=== PATIENT | male | born 1965 | race Caucasian/White ===

== ENCOUNTER 2016-12-20 18:57 | Emergency (ER) | payer BC ==
--- NOTE | 2016-12-20 19:15 | ER Document Report ---
ED Medical Screen (RME) - General Chief Complaint: Abdominal Pain Stated Complaint: RIGHT ABDOMINAL AND SIDE PAIN Notes: This 51-year-old male patient comes emergency room with right upper quadrant abdominal pain for the past few weeks. There is nausea without vomiting or diarrhea today. There had been diarrhea up until yesterday. There may be fever. He saw his primary care provider who sent him to the emergency room. He does smoke a pack a day, probably drinks heavily but has not recently. Quick exam in RME suggests hepatomegaly and ascites. An ultrasound was ordered. I have greeted and performed a rapid initial assessment of this patient. A comprehensive ED assessment and evaluation of the patient, analysis of test results and completion of the medical decision making process will be conducted by additional ED providers. TRAVEL OUTSIDE OF THE [place] IN LAST 30 DAYS: No - Related Data Allergies/Adverse Reactions: No Known Allergies Allergy (Verified 12/20/16 19:02) Past Medical History Pulmonary Medical History: Reports: Hx COPD Renal/ Medical History: Denies: Hx Peritoneal Dialysis Psychiatric Medical History: Denies: Hx Depression Past Surgical History: Reports: Hx Orthopedic Surgery - Immunizations Hx Diphtheria, Pertussis, Tetanus Vaccination: Yes Physical Exam - Vital signs Vitals: Temp Pulse Resp BP Pulse Ox 98.5 F 91 20 91/61 L 93 12/20/16 19:01 12/20/16 19:01 12/20/16 19:01 12/20/16 19:01 12/20/16 19:01 Course - Vital Signs Vital signs: Temp Pulse Resp BP Pulse Ox 98.5 F 91 20 91/61 L 93 12/20/16 19:01 12/20/16 19:01 12/20/16 19:01 12/20/16 19:01 12/20/16 19:01
[2016-12-20 19:42] LABS: ABSOLUTE BASOPHILS # (AUTO) 0.1 10^3/uL (0.0-0.2); ABSOLUTE EOSINOPHILS # (AUTO) 0.1 10^3/uL (0.0-0.6); ABSOLUTE LYMPHOCYTES (AUTO) 1.7 10^3/uL (0.5-4.7); ABSOLUTE MONOCYTES (AUTO) 1.2 10^3/uL (0.1-1.4); ABSOLUTE NEUT (AUTO) 10.2 10^3/uL (1.7-8.2); BASOPHILS % (AUTO) 0.4 % (0-2); EOSINOPHILS % (AUTO) 0.6 % (0-6); HEMATOCRIT 40.9 % (37.9-51.0); HEMOGLOBIN 14.1 g/dL (13.5-17.0); HGB HCT DIFFERENCE 1.4; LYMPHOCYTES % (AUTO) 12.8 % (13-45); MEAN CORPUSCULAR HEMOGLOBIN 36.4 pg (27.0-33.4); MEAN CORPUSCULAR HGB CONC 34.5 g/dL (32.0-36.0); MEAN CORPUSCULAR VOLUME 105 fl (80-97); MONOCYTES % (AUTO) 8.9 % (3-13); RED BLOOD COUNT 3.88 10^6/uL (4.35-5.55); RED CELL DISTRIBUTION WIDTH 14.2 % (11.5-14.0); SEGMENTED NEUTROPHILS % (AUTO) 77.3 % (42-78); WHITE BLOOD COUNT 13.2 10^3/uL (4.0-10.5)
[2016-12-20 20:00] LABS: ALANINE AMINOTRANSFERASE 98 U/L (21-72); ALBUMIN 3.9 g/dL (3.5-5.0); ALKALINE PHOSPHATASE 710 U/L (38-126); ANION GAP 15 (5-19); ASPARTATE AMINO TRANSFERASE 428 U/L (17-59); BILIRUBIN,DIRECT 1.5 mg/dL (0.0-0.4); BLOOD UREA NITROGEN 31 mg/dL (7-20); CALCIUM 11.7 mg/dL (8.4-10.2); CARBON DIOXIDE 22 mmol/L (22-30); CHLORIDE 101 mmol/L (98-107); CREATININE RESULT 1.14 mg/dL (0.52-1.25); GLUCOSE 103 mg/dL (75-110); LIPASE 312.8 U/L (23-300); POTASSIUM 5.9 mmol/L (3.6-5.0); SODIUM 137.8 mmol/L (137-145); TOTAL PROTEIN 7.9 g/dL (6.3-8.2)
[2016-12-21] MEDS ORDERED: NORMAL SALINE 1000 ML 1,000 ML IV PRN (00:30)
[2016-12-21] MEDS ORDERED: ONDANSETRON HCL INJ/PF 4 MG/2 ML SDV IV ONE (00:30)
--- NOTE | 2016-12-21 00:36 | ER Document Report ---
ED GI/ - General Chief Complaint: Abdominal Pain Stated Complaint: RIGHT ABDOMINAL AND SIDE PAIN Time seen by provider: 00:33 Mode of Arrival: Ambulatory Information source: Patient TRAVEL OUTSIDE OF THE [place] IN LAST 30 DAYS: No - HPI Patient complains to provider of: Abdominal pain, Vomiting Onset: Other - 2 weeks Timing/Duration: Persistent, Worse Quality of pain: Achy, Fullness, Pressure Severity at maximum: Moderate Severity in ED: Moderate Pain Level: 3 Location: RUQ, RLQ Associated symptoms: Chills, Nausea, Vomiting Exacerbated by: Denies Relieved by: Denies Similar symptoms previously: No Recently seen / treated by doctor: No Notes: 12/21/16 00:34 Patient is a 51-year-old male who presents to emergency room complaining of right-sided abdominal pain that's been going on for the past 2 weeks, initially he had nausea, vomiting and diarrhea as well as chills and a subjective fever, over the past few days his pain has increased but the vomiting and diarrhea has decreased, he denies any history of similar symptoms previously, he denies any abdominal surgeries previously, he is a pack per day smoker, and drinks approximately one of whiskey daily, reports a history of hypertension - Related Data Allergies/Adverse Reactions: No Known Allergies Allergy (Verified 12/20/16 19:02) Past Medical History - General Information source: Patient - Social History Smoking Status: Current Every Day Smoker Frequency of alcohol use: Heavy Drug Abuse: None Family History: Reviewed & Not Pertinent Patient has suicidal ideation: No Patient has homicidal ideation: No Pulmonary Medical History: Reports: Hx COPD Renal/ Medical History: Denies: Hx Peritoneal Dialysis Psychiatric Medical History: Denies: Hx Depression Past Surgical History: Reports: Hx Orthopedic Surgery - Immunizations Hx Diphtheria, Pertussis, Tetanus Vaccination: Yes Review of Systems - Review of Systems Constitutional: See HPI EENT: No symptoms reported Cardiovascular: No symptoms reported Respiratory: No symptoms reported Gastrointestinal: See HPI Genitourinary: No symptoms reported Male Genitourinary: No symptoms reported Musculoskeletal: No symptoms reported Skin: No symptoms reported Hematologic/Lymphatic: No symptoms reported Neurological/Psychological: No symptoms reported -: Yes All other systems reviewed and negative Physical Exam - Vital signs Vitals: Temp Pulse Resp BP Pulse Ox 98.5 F 91 20 91/61 L 93 12/20/16 19:01 12/20/16 19:01 12/20/16 19:01 12/20/16 19:01 12/20/16 19:01 Interpretation: Hypotensive - General General appearance: Alert In distress: None - HEENT Head: Normocephalic, Atraumatic Eyes: Normal Conjunctiva: Normal Extraocular movements intact: Yes Eyelashes: Normal Pupils: PERRL Mucous membranes: Dry - Respiratory Respiratory status: No respiratory distress Chest status: Nontender Breath sounds: Normal Chest palpation: Normal - Cardiovascular Rhythm: Regular Heart sounds: Normal auscultation Murmur: No - Abdominal Distension: Distended Bowel sounds: Hypoactive Tenderness: Tender - Right upper and right lower quadrant Organomegaly: Hepatomegaly - Back Back: Normal, Nontender - Extremities General upper extremity: Normal inspection, Nontender, Normal color, Normal ROM , Normal temperature General lower extremity: Normal inspection, Nontender, Normal color, Normal ROM , Normal temperature, Normal weight bearing. No: Aneta's sign - Neurological Neuro grossly intact: Yes Cognition: Normal Orientation: AAOx4 Jason Coma Scale Eye Opening: Spontaneous Jason Coma Scale Verbal: Oriented [place] Coma Scale Motor: Obeys Commands Jason Coma Scale Total: 15 Speech: Normal Motor strength normal: LUE, RUE, LLE, RLE Sensory: Normal - Psychological Associated symptoms: Normal affect, Normal mood - Skin Skin Temperature: Warm Skin Moisture: Dry Skin Color: Normal Course - Re-evaluation Re-evalutation: 12/21/16 04:26 Lab and imaging findings were discussed with patient and spouse at bedside which are skin consistent with multiple metastatic lesions, patient was provided with pain medication and information for follow-up with oncology, advised to stop drinking and smoking, follow-up with a primary care provider and oncologist in the next 1-2 days for further evaluation, or return if symptoms worsen, patient acknowledges understanding and agreement with this plan - Vital Signs Vital signs: Temp Pulse Resp BP Pulse Ox 98.2 F 91 19 125/80 90 L 12/20/16 19:05 12/20/16 19:05 12/21/16 03:07 12/21/16 03:07 12/21/16 03:07 - Laboratory Result Diagrams: 12/20/16 19:20 12/20/16 19:20 Laboratory results interpreted by me: 12/20/16 12/20/16 12/21/16 19:20 19:20 00:45 WBC 13.2 H RBC 3.88 L MCV 105 H MCH 36.4 H RDW 14.2 H Lymphocytes % 12.8 L Absolute Neutrophils 10.2 H APTT 38.2 H Potassium 5.9 H BUN 31 H Calcium 11.7 H Total Bilirubin 2.0 H Direct Bilirubin 1.5 H AST 428 H ALT 98 H Alkaline Phosphatase 710 H Creatine Kinase Lipase 312.8 H Urine Protein Urine Bilirubin Urine Urobilinogen Urine Ascorbic Acid 12/21/16 12/21/16 00:45 00:50 WBC RBC MCV MCH RDW Lymphocytes % Absolute Neutrophils APTT Potassium BUN Calcium Total Bilirubin Direct Bilirubin AST ALT Alkaline Phosphatase Creatine Kinase 667 H Lipase Urine Protein 30 H Urine Bilirubin SMALL H Urine Urobilinogen 4.0 H Urine Ascorbic Acid 20 H - Diagnostic Test Radiology reviewed: Image reviewed, Reports reviewed - EKG Interpretation by Me EKG shows normal: Sinus rhythm Rate: Normal Rhythm: NSR Discharge - Discharge Clinical Impression: Liver masses, Mass of both adrenal glands, Liver enzyme elevation, ETOH abuse Condition: Stable Disposition: HOME, SELF-CARE Instructions: Growth or Mass, Pending Workup ([facility]), Liver Function Abnormality ([facility]), Chronic Alcoholism ([facility]), Stop Smoking ([facility]) Additional Instructions: Follow-up with a primary care provider and oncologist within the next 1-2 days for further evaluation and treatment. Stop drinking and stop smoking. Return to the emergency room immediately if symptoms worsen or any additional concerns. Prescriptions: Oxycodone HCl 5 mg PO Q4 #30 tablet Forms: Smoking Cessation Education Referrals: THO URIAS MD [ACTIVE STAFF] - Follow up as needed DWAINE TUCKER MD [ACTIVE STAFF] - Follow up as needed
[2016-12-21 01:16] LABS: PROTHROMBIN TIME 13.2 SEC (11.4-15.4)
[2016-12-21 01:18] LABS: PARTIAL THROMBOPLASTIN TIME 38.2 SEC (23.5-35.8)
[2016-12-21 01:35] LABS: APPEARANCE,URINE SLIGHTLY-CLOUDY; BILIRUBIN,URINE SMALL (NEGATIVE); GLUCOSE, URINE NEGATIVE (NEGATIVE); KETONES,URINE NEGATIVE (NEGATIVE); LEUKOCYTE ESTERASE,URINE NEGATIVE (NEGATIVE); NITRITE,URINE NEGATIVE (NEGATIVE); PROTEIN,URINE 30 mg/dL (NEGATIVE); URINE SPECIFIC GRAVITY 1.029
[2016-12-21 05:15] VITALS: BP 128/74
--- NOTE | 2016-12-21 07:28 | EKG REPORT ---
SEVERITY:- ABNORMAL ECG - SINUS RHYTHM BORDERLINE R WAVE PROGRESSION, ANTERIOR LEADS NONSPECIFIC T ABNORMALITIES, LATERAL LEADS : Confirmed by: Prem Yepez MD 21-Dec-2016 07:27:56
== END 2016-12-21 04:50 | disposition home or self-care (01) ==
LOC: ER 18:57
DX: R16.0 Hepatomegaly, not elsewhere classified (principal); D35.00 Benign neoplasm of unspecified adrenal gland; R74.8 Abnormal levels of other serum enzymes; F10.10 Alcohol abuse, uncomplicated; R10.9 Unspecified abdominal pain; R52 Pain, unspecified; R11.2 Nausea with vomiting, unspecified; R19.7 Diarrhea, unspecified; F17.210 Nicotine dependence, cigarettes, uncomplicated; I10 Essential (primary) hypertension
CPT/HCPCS: 93005; 99284; 96361; 96374; 36415; 87045; 89055; 87205; 82553; 82550; 83690; 85025; 85610; 85730; 82272; 80053; 81001; 87493 ×2; 76705; 74177; 93010; J2405; J7030

== ENCOUNTER 2016-12-29 16:15 | Inpatient (IN) | payer BC ==
--- NOTE | 2016-12-29 17:04 | ER Document Report ---
ED Medical Screen (RME) - General Chief Complaint: Abnormal Lab Results Stated Complaint: ABNORMAL LABS Notes: This 51-year-old patient comes emergency room on the advice of his oncologist for elevated potassium on lab work done in the office yesterday. 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 He was found to have low blood pressure at triage. He denies any vomiting. He does get choked on food and fluids sometimes. I have greeted and performed a rapid initial assessment of this patient. A comprehensive ED assessment and evaluation of the patient, analysis of test results and completion of the medical decision making process will be conducted by additional ED providers. TRAVEL OUTSIDE OF THE [place] IN LAST 30 DAYS: No - Related Data Allergies/Adverse Reactions: No Known Allergies Allergy (Verified 12/29/16 16:59) Past Medical History Pulmonary Medical History: Reports: Hx COPD Renal/ Medical History: Denies: Hx Peritoneal Dialysis Psychiatric Medical History: Denies: Hx Depression Past Surgical History: Reports: Hx Orthopedic Surgery - Immunizations Hx Diphtheria, Pertussis, Tetanus Vaccination: Yes Physical Exam - Vital signs Vitals: Temp Pulse Resp BP Pulse Ox 98.5 F 82 18 76/50 L 92 12/29/16 16:53 12/29/16 16:53 12/29/16 16:53 12/29/16 16:53 12/29/16 16:53 Course - Vital Signs Vital signs: Temp Pulse Resp BP Pulse Ox 98.5 F 82 18 76/50 L 92 12/29/16 16:53 12/29/16 16:53 12/29/16 16:53 12/29/16 16:53 12/29/16 16:53
[2016-12-29] MEDS ORDERED: NORMAL SALINE 1000 ML 1,000 ML IV ONE (17:09)
[2016-12-29 17:41] LABS: ABSOLUTE BASOPHILS # (AUTO) 0.1 10^3/uL (0.0-0.2); ABSOLUTE EOSINOPHILS # (AUTO) 0.1 10^3/uL (0.0-0.6); ABSOLUTE LYMPHOCYTES (AUTO) 1.2 10^3/uL (0.5-4.7); ABSOLUTE MONOCYTES (AUTO) 0.7 10^3/uL (0.1-1.4); ABSOLUTE NEUT (AUTO) 7.1 10^3/uL (1.7-8.2); BASOPHILS % (AUTO) 0.7 % (0-2); EOSINOPHILS % (AUTO) 0.9 % (0-6); HEMATOCRIT 37.2 % (37.9-51.0); HGB HCT DIFFERENCE 1.8; LYMPHOCYTES % (AUTO) 12.8 % (13-45); MEAN CORPUSCULAR HEMOGLOBIN 36.4 pg (27.0-33.4); MEAN CORPUSCULAR HGB CONC 34.8 g/dL (32.0-36.0); MEAN CORPUSCULAR VOLUME 105 fl (80-97); MONOCYTES % (AUTO) 8.2 % (3-13); RED BLOOD COUNT 3.55 10^6/uL (4.35-5.55); RED CELL DISTRIBUTION WIDTH 14.1 % (11.5-14.0); SEGMENTED NEUTROPHILS % (AUTO) 77.4 % (42-78); WHITE BLOOD COUNT 9.1 10^3/uL (4.0-10.5)
[2016-12-29 17:54] LABS: ALANINE AMINOTRANSFERASE 113 U/L (21-72); ALBUMIN 3.5 g/dL (3.5-5.0); ALKALINE PHOSPHATASE 523 U/L (38-126); ANION GAP 19 (5-19); ASPARTATE AMINO TRANSFERASE 365 U/L (17-59); BILIRUBIN,DIRECT 1.2 mg/dL (0.0-0.4); BILIRUBIN,TOTAL 1.4 mg/dL (0.2-1.3); BLOOD UREA NITROGEN 115 mg/dL (7-20); CALCIUM 9.7 mg/dL (8.4-10.2); CARBON DIOXIDE 17 mmol/L (22-30); CHLORIDE 99 mmol/L (98-107); GLUCOSE 101 mg/dL (75-110); MAGNESIUM 2.1 mg/dL (1.6-2.3); SODIUM 135.3 mmol/L (137-145); TOTAL PROTEIN 7.7 g/dL (6.3-8.2)
[2016-12-29 17:56] LABS: POTASSIUM 6.9 mmol/L (3.6-5.0)
[2016-12-29] MEDS ORDERED: CALCIUM GLUCONATE 1000 MG/10 ML INJ IV ONE (18:10)
[2016-12-29] MEDS ORDERED: INSULIN REG, HUMAN 100 UNIT/ML 3 ML VIAL (PYX) IV ONE (18:11)
[2016-12-29] MEDS ORDERED: DEXTROSE 50%-WATER 25 GM/50 ML DISP.SYRIN IV ONE (18:11)
[2016-12-29] MEDS ORDERED: IPRATROPIUM/ALBUTEROL 0.5-2.5 MG/3 ML AMPUL NEB ONE (18:11)
[2016-12-29] MEDS ORDERED: SODIUM POLYSTYRENE SULFONATE 15 GM/60 ML PO ONE (18:12)
[2016-12-29] MEDS ORDERED: NORMAL SALINE 500 ML IV PRN (18:23)
--- NOTE | 2016-12-29 19:06 | ER Document Report ---
ED General - General Chief Complaint: Abnormal Lab Results Stated Complaint: ABNORMAL LABS Time seen by provider: 19:02 Mode of Arrival: Ambulatory Information source: Patient Notes: This is a 51-year-old man with a history of CHF (ejection fraction 20%) and hypertension with a recent diagnosis of metastatic cancer to the liver (one week ago via CT scan of the abdomen). The patient also notes that his pressures have been running low. He is continued his current blood pressure regimen despite this because he did not know otherwise. He did have an appointment with Dr. Gardner of oncology yesterday and they did some blood work and was referred here to the ER because of hyperkalemia. Currently, he complains of feeling generalized weakness and lack of energy. Medicines: Potassium supplementation (595 mg a day): His been taking this on his own. 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 Gardner patient is due to have a PET scan on Monday and a biopsy to be set up after that. TRAVEL OUTSIDE OF THE [place] IN LAST 30 DAYS: No - HPI Onset: Just prior to arrival Onset/Duration: Sudden Quality of pain: No pain Severity: None Pain Level: Denies Associated symptoms: Weakness Exacerbated by: Denies Relieved by: Denies Similar symptoms previously: Yes Recently seen / treated by doctor: Yes - Related Data Allergies/Adverse Reactions: No Known Allergies Allergy (Verified 12/29/16 16:59) Home Medications: Current Home Medications Aspirin [Aspirin EC] 81 mg PO DAILY 12/29/16 [History] Carvedilol [Coreg 25 mg Tablet] 1.5 tab PO Q12 12/29/16 [History] Cinnamon Bark [Cinnamon Bark 500 mg Capsule] 1,000 mg PO DAILY 12/29/16 [History ] Furosemide [Lasix] 80 mg PO BID 12/29/16 [History] Guaifenesin [Mucinex] 1,200 mg PO DAILY 12/29/16 [History] Guaifenesin/P-Ephed HCl [Mucinex D Tablet] 1 tab PO DAILY 12/29/16 [History] Lisinopril [Prinivil 40 mg Tablet] 40 mg PO DAILY 12/29/16 [History] [place]-3 Fatty Acids/Fish Oil [Fish Oil 1,000 mg Capsule] 1,000 mg PO DAILY 12/29 [History] Oxycodone HCl [Oxy-Ir 5 mg Tablet] 5 mg PO Q4 12/29/16 [History] Ranitidine HCl [Heartburn Relief 150] 150 mg PO DAILY 12/29/16 [History] Past Medical History - General Information source: Patient - Social History Smoking Status: Current Every Day Smoker Cigarette use (# per day): Yes - pack a day Chew tobacco use (# tins/day): No Frequency of alcohol use: Heavy Drug Abuse: None Lives with: Spouse/Significant other Family History: Reviewed & Not Pertinent Patient has suicidal ideation: No Patient has homicidal ideation: No - Past Medical History Cardiac Medical History: Reports: Hx Congestive Heart Failure - Ejection fraction 20% Pulmonary Medical History: Reports: Hx COPD EENT Medical History: Reports: None Neurological Medical History: Reports: None Endocrine Medical History: Reports: None Renal/ Medical History: Denies: Hx Peritoneal Dialysis Malignancy Medical History: Reports Other - Recent diagnosis of metastatic cancer with an unknown primary GI Medical History: Reports: Other - Metastatic disease to the liver Musculoskeltal Medical History: Reports Hx Arthritis Skin Medical History: Reports None Psychiatric Medical History: Denies: Hx Depression Traumatic Medical History: Reports: None Infectious Medical History: Reports: None Past Surgical History: Reports: Hx Orthopedic Surgery - Immunizations Hx Diphtheria, Pertussis, Tetanus Vaccination: Yes Review of Systems - Review of Systems Constitutional: denies: Chills, Fever EENT: No symptoms reported Cardiovascular: No symptoms reported Respiratory: No symptoms reported Gastrointestinal: See HPI Genitourinary: No symptoms reported Male Genitourinary: No symptoms reported Musculoskeletal: No symptoms reported Skin: No symptoms reported Hematologic/Lymphatic: No symptoms reported Neurological/Psychological: See HPI Physical Exam - Vital signs Vitals: Temp Pulse Resp BP Pulse Ox 98.5 F 82 18 76/50 L 92 12/29/16 16:53 12/29/16 16:53 12/29/16 16:53 12/29/16 16:53 12/29/16 16:53 Notes: Physical exam: GENERAL: 51-year-old man, alert and oriented 3, complaining of generalized weakness, no acute distress. HEAD: Atraumatic, normocephalic. EYES: Pupils equal round and reactive to light, extraocular movements intact, sclera anicteric, conjunctiva are normal. ENT: TMs normal, nares patent, oropharynx clear without exudates. Dry mucous membranes. NECK: Normal range of motion, supple without lymphadenopathy or JVD. LUNGS: Breath sounds clear to auscultation bilaterally and equal. No wheezes rales or rhonchi. HEART: Regular rate and rhythm without murmurs, rubs or gallops. ABDOMEN: Soft, normoactive bowel sounds. No tenderness to palpation. No guarding, no rebound. No masses appreciated. EXTREMITIES: Normal range of motion, no pitting or edema. No clubbing or cyanosis. NEUROLOGICAL: Cranial nerves II through XII grossly intact. Normal speech, normal gait. PSYCH: Normal mood, normal affect. SKIN: Warm, Dry, normal turgor, no rashes or lesions noted. Course - Re-evaluation Re-evalutation: Patient was treated with IV calcium gluconate, IV D50, IV insulin, oral Kayexalate and albuterol and ipratropium nebulizers. Patient is being cautiously hydrated with normal saline at 200 mL an hour. His ejection fraction is 20%. 12/29/16 19:56 Patient's blood pressure at this time is 103/68. He is sitting up drinking Kayexalate. 12/29/16 19:57 12/29/16 19:57 I discussed case with Dr. Hardin who agrees with the above treatment. I have discussed case with Dr. Chi who is willing to admit the patient. I've discussed the case with Dr. Cerdick Serrano is covering for Dr. Gardner who will follow the patient. 12/29/16 22:16 - Vital Signs Vital signs: Temp Pulse Resp BP Pulse Ox 98.5 F 82 30 H 103/66 91 L 12/29/16 16:53 12/29/16 16:53 12/29/16 22:01 12/29/16 22:00 12/29/16 22:01 - Laboratory Result Diagrams: 12/29/16 17:16 12/29/16 17:16 Laboratory results interpreted by me: 12/29/16 12/29/16 17:16 17:16 RBC 3.55 L Hgb 13.0 L Hct 37.2 L MCV 105 H MCH 36.4 H RDW 14.1 H Lymphocytes % 12.8 L Sodium 135.3 L Potassium 6.9 H* Carbon Dioxide 17 L BUN 115 H Creatinine 3.90 H Est GFR ( Amer) 20 L Est GFR (Non-Af Amer) 16 L Total Bilirubin 1.4 H Direct Bilirubin 1.2 H AST 365 H ALT 113 H Alkaline Phosphatase 523 H - Diagnostic Test Radiology reviewed: Image reviewed, Reports reviewed - Chest x-ray shows right hilar fullness consistent with possible mass - EKG Interpretation by Me Rate: Normal Rhythm: NSR - EKG shows normal sinus rhythm with a first-degree AV block. Normal T waves. Critical Care Note - Critical Care Note Total time excluding time spent on procedures (mins): 90 Discharge - Discharge Clinical Impression: hyperkalemia, acute renal failure Condition: Serious Disposition: ADMITTED INPATIENT Admitting Provider: Hospitalist - Dr. Chi Unit Admitted: [facility]
[2016-12-29] MEDS ORDERED: NORMAL SALINE 1000 ML 1,000 ML IV PRN ×2 (19:13→22:55)
--- NOTE | 2016-12-29 20:06 | EKG REPORT ---
SEVERITY:- ABNORMAL ECG - SINUS RHYTHM FIRST DEGREE AV BLOCK BORDERLINE R WAVE PROGRESSION, ANTERIOR LEADS : Confirmed by: Leona Carney MD 29-Dec-2016 20:05:47
[2016-12-29 22:16] LABS: ANION GAP 19 (5-19); BLOOD UREA NITROGEN 114 mg/dL (7-20); CALCIUM 9.6 mg/dL (8.4-10.2); CARBON DIOXIDE 18 mmol/L (22-30); CHLORIDE 100 mmol/L (98-107); CREATININE RESULT 3.83 mg/dL (0.52-1.25); GLUCOSE 71 mg/dL (75-110); SODIUM 137.3 mmol/L (137-145)
[2016-12-29 22:19] LABS: POTASSIUM 6.3 mmol/L (3.6-5.0)
[2016-12-29] MEDS ORDERED: PROMETHAZINE HCL INJ 25 MG/1 ML VIAL IV PRN (23:02)
--- NOTE | 2016-12-29 23:25 | PDOC H&P ---
History of Present Illness Admission Date/PCP: 12/29/16 20:31 pcp None Cards Sandi Gardner Patient complains of: abn labs History of Present Illness: EDILIA PAN is a 51 year old male with known underlying severe congestive heart failure, reportedly under consideration for defibrillator implant, chronic tobacco use, chronic heavy alcohol use, fifth of whiskey every 2-3 days, hypertension, with recently discovered metastatic malignancy, unknown primary, who presents today at the recommendation of his oncologist for evaluation of above complaint. Patient has been discussed with emergency room physician who evaluated the patient. Elevated potassium noted on blood work drawn yesterday. Recent CT scan of abdomen revealed malignancy metastatic to liver, with unknown primary. He describes a general feeling of fatigue and weakness. 22 pound weight loss over the last 3 weeks, unintentional. Poor appetite. No fever or chills. Mild diffuse abdominal discomfort. Occasional nausea and vomiting and diarrhea , but basically none for the past week or so. A bit of a poor historian. Has been taking his usual medications as noted over the past several days. his blood pressure has been a bit low; stated his systolic pressure on today was 77. Initially systolic pressure in the 70's in the emergency room, but has responded to IV fluids. Denies any known underlying renal disease. Prior to my being called, the emergency room physician did discuss with Dr. Hardin, nursing home admissions director armature winder. She agreed with admission along with management of hyperkalemia and IV fluids. Currently resting quietly, still having some abdominal discomfort, but improved.. Laboratory results are listed in [employer] and are reviewed. X-ray summary results are listed below, with full report(s) reviewed. . EKG reviewed. And compared to a tracing the 12th of this month. Social history/personal habits: Single. No children. 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 Pack of cigarettes per day. No illicit drug use. Heavy alcohol use as noted above. Allergies/adverse reactions NKDA. Home medications Home medications initially autopopulated into [employer] may not accurately reflect patient's true medications, dosages, and/or frequencies. industrial hygiene technician has reconciled medications. REVIEW OF SYSTEMS: Constitutional: See history and present illness. Eyes: Wears glasses. ENT: Mild occasional recent dysphagia, primarily when he takes a "big gulp" of milk prior to taking his medications. No trouble with solid food. No aspiration. No hearing problems or complaints. Pulmonary: No current complaints. Cardiovascular: No current complaints, including chest pain. Gastrointestinal: See history and present illness. Skin: No current complaints, including rashes. Hematologic: No unusual easy bruising or bleeding. Neurologic: No current complaints, including numbness or tingling. Musculoskeletal: Joint pain from arthritis. Psychiatric: No current complaints, including anxiety or depression. Endocrine: No current complaints, including polyuria. Genitourinary: No current complaints, including dysuria. PHYSICAL EXAMINATION: 80 kg. Height is not recorded on the chart. Blood pressure 103/66. Pulse 87 and regular. 94% saturation on room air. Respirations are 14 and unlabored. Temperature 98.5. Outwardly well nourished though somewhat chronically ill-appearing male who appears a bit older than his stated age. Pleasant awake alert and cooperative. No obvious distress other than somewhat anxious. No agitation. Skin is warm and dry. No grossly obvious evidence of rash in areas of skin examined. No subcutaneous nodules palpated. ENT: Hearing grossly normal to normal conversation. Tongue midline on protrusion pink and slightly moist. Eyes: No scleral icterus. Pupils equal and reactive to light at 4 mm. slightly pale conjunctivae. Neck is supple and nontender to gentle active range of motion and palpation. Midline trachea. No palpable thyroid nodule mass enlargement or tenderness. Lymphatic: No palpable cervical or clavicular nodes. Neck and lymphatic exams limited by patient body habitus. Psychiatric: Reasonable insight into acute and chronic medical issues. Oriented to time location and why here. Lungs: Auscultation reveals clear and equal breath sounds bilaterally. No use of accessory respiratory muscles. Cardiovascular: Heart regular rate and rhythm, without gallop murmur or rub. No carotid or abdominal aortic bruits. No ankle or pedal edema. Faintly palpable dorsalis pedis pulses. Abdomen: soft, somewhat protruberant and distended with positive bowel sounds. Very mild diffuse abdominal discomfort, a bit more noticeable on the right side. Certainly no evidence of guarding or peritoneal signs. Unable to adequately evaluate abdomen for masses or organomegaly due to distention. Extremities: Feet are warm and dry. No calf tenderness to compression. No grossly obvious visual evidence of calf swelling. Gentle manipulation of lower extremities fails to reveal any obvious evidence of injury or instability to knees hips or ankles. Neurologic: Moves all 4 extremities grossly normally. Moves from a standing to a seated to a supine position without undue difficulty. Patellar reflexes 2+ and symmetric. Absent Babinski. Light touch is intact at feet. Dorsiflexion and plantarflexion of feet 5 / 5 and symmetric. Past Medical History Cardiac Medical History: Reports: Congestive Heart Failure, Hypertension Denies: DVT, Myocardial Infarction, Hyperlipidema, Pulmonary Embolism Pulmonary Medical History: Denies: Asthma, Chronic Obstructive Pulmonary Disease (COPD) EENT Medical History: Reports: Eyes - Reading glasses Neurological Medical History: Denies: Hemorrhagic CVA, Ischemic CVA, Seizures Endocrine Medical History: Denies: Diabetes Mellitus Type 1, Diabetes Mellitus Type 2, Hyperthyroidism, Hypothyroidism Renal/ Medical History: Reports: None Malignancy Medical History: Reports: Other - Recent diagnosis of metastatic cancer with an unknown primary GI Medical History: Reports: Other - Metastatic disease to the liver Denies: Cirrhosis, Gastroesophageal Reflux Disease, Hepatitis, Peptic Ulcer Disease Musculoskeltal Medical History: Denies: Arthritis Skin Medical History: Reports: None Psychiatric Medical History: Reports: Alcohol Dependency, Tobacco Dependency Denies: Depression, General Anxiety Disorder, Substance Abuse Traumatic Medical History: Reports: None Hematology: Reports: None Infectious Medical History: Denies: Hepatitis B, Hepatitis C Past Surgical History Past Surgical History: Reports: Orthopedic Surgery - Right hip surgery Social History Information Source: Patient, Emergency Med Personnel, [facility] Records Lives with: Spouse/Significant other Smoking Status: Current Every Day Smoker Frequency of Alcohol Use: Heavy Hx Recreational Drug Use: No Drugs: None Hx Prescription Drug Abuse: No - Advance Directive Resuscitation Status: Full Code Surrogate healthcare decision maker:: His niece promise Family History Family History: Reviewed & Not Pertinent, Malignancy Parental Family History Reviewed: Yes - Mother of cancer. Uncertain cause of father's . Children Family History Reviewed: NA Sibling(s) Family History Reviewed.: Yes - Sibling is healthy. Medication/Allergy Home Medications: Aspirin [Aspirin EC] 81 mg PO DAILY 12/29/16 Carvedilol [Coreg 25 mg Tablet] 37.5 mg PO Q12 12/29/16 Furosemide [Lasix] 80 mg PO BID 12/29/16 Lisinopril [Prinivil 40 mg Tablet] 40 mg PO DAILY 12/29/16 [place]-3 Fatty Acids/Fish Oil [Fish Oil 1,000 mg Capsule] 1,000 mg PO DAILY 12/29 Oxycodone HCl [Oxy-Ir 5 mg Tablet] 5 mg PO Q4 12/29/16 Ranitidine HCl [Heartburn Relief 150] 150 mg PO DAILYP PRN 12/29/16 Allergies/Adverse Reactions: No Known Allergies Allergy (Verified 12/29/16 16:59) Physical Exam Vital Signs: Temp Pulse Resp BP Pulse Ox 98.5 F 82 30 H 103/66 91 L 12/29/16 16:53 12/29/16 16:53 12/29/16 22:01 12/29/16 22:00 12/29/16 22:01 Results Laboratory Results: 12/29/16 21:48 12/29/16 21:48 Sodium 137.3 Potassium 6.3 H* Chloride 100 Carbon Dioxide 18 L Anion Gap 19 BUN 114 H Creatinine 3.83 H Est GFR ( Amer) 20 L Est GFR (Non-Af Amer) 17 L Glucose 71 L Calcium 9.6 Impressions: Chest X-Ray 12/29/16 18:58 IMPRESSION: Right hilar fullness, probable lymphadenopathy, consider contrast CT to further characterize. Assessment & Plan - Diagnosis (1) ARF (acute renal failure) Qualifiers: Acute renal failure type: unspecified Qualified Code(s): N17.9 - Acute kidney failure, unspecified Is this a current diagnosis for this admission?: YesPlan: Likely prerenal due to dehydration, but also due to affective Lasix and ARDEN inhibitor, both of which have been stopped. IV fluids. Nephrology consult. (2) Abdominal pain, generalized Is this a current diagnosis for this admission?: YesPlan: Mild. When necessary pain medications. (3) Appetite impaired Is this a current diagnosis for this admission?: YesPlan: Likely due to underlying malignancy. Dietary consult. (4) Dehydration Is this a current diagnosis for this admission?: Yes (5) Hyperkalemia Is this a current diagnosis for this admission?: YesPlan: Combination of dehydration and his medications. IV fluids. Serial labs. (6) Hypotension Qualifiers: Hypotension type: unspecified hypotension type Qualified Code(s): I95.9 - Hypotension, unspecified Is this a current diagnosis for this admission?: YesPlan: Likely due to combination of dehydration and medications. Responded nicely to IV fluids. Continue same. I have strongly encouraged patient not to get out of bed without notifying staff , to avoid a fall with injury. Knee high SCDs for DVT prophylaxis, [along with subcutaneous heparin. Impression and plans were discussed with patient, who concurs. Time spent in evaluation and management of patient: 64 minutes. (7) Metastatic malignant neoplasm of unknown primary site Is this a current diagnosis for this admission?: YesPlan: Oncology consult. (8) Alcohol dependency Qualifiers: Substance use status: uncomplicated Qualified Code(s): F10.20 - Alcohol dependence, uncomplicated Is this a current diagnosis for this admission?: YesPlan: Daily multivitamin, thiamine, and folic acid. When necessary Ativan. Observe closely for withdrawal symptoms. Not evident at present. (9) Elevated LFTs Is this a current diagnosis for this admission?: YesPlan: Likely due to underlying alcohol abuse. Repeat chemistry. PT/INR and PTT. (10) Systolic CHF Qualifiers: Congestive heart failure chronicity: chronic Qualified Code(s): I50.22 - Chronic systolic (congestive) heart failure Is this a current diagnosis for this admission?: YesPlan: No evidence of exacerbation of same, but with underlying liver disease, will obtain cardiology consult. Judicious use of IV fluids.Resume home medications as appropriate once these have been determined and reviewed. (11) Tobacco use disorder Is this a current diagnosis for this admission?: Yes - Inpatient Certification Based on my medical assessment, after consideration of the patient's comorbidities, presenting symptoms, or acuity I expect that the services needed warrant INPATIENT care.: Yes I certify that my determination is in accordance with my understanding of Medicare's requirements for reasonable and necessary INPATIENT services [42 CFR 412.3e].: Yes Medical Necessity: Significant Comorbidiites Make Outpatient Treatment Too Risky , Need Close Monitoring Due to Risk of Patient Decompensation, Need For IV Fluids, Need For Continuous Telemetry Monitoring, Risk of Complication if Not Cared For in Hospital, Risk of Diagnosis Which Will Require Inpatient Eval/Care/ Monitoring Post Hospital Care: D/C or Transfer Summary
[2016-12-30] MEDS ORDERED: DEXTROSE 50%-WATER 25 GM/50 ML DISP.SYRIN IV ONE (03:30)
[2016-12-30] MEDS ORDERED: INSULIN REG, HUMAN 100 UNIT/ML 3 ML VIAL (PYX) IV ONE (03:30)
[2016-12-30] MEDS: ACETAMINOPHEN 325 MG TABLET PO PRN (03:54)
[2016-12-30 04:52] LABS: APPEARANCE,URINE SLIGHTLY-CLOUDY; BILIRUBIN,URINE NEGATIVE (NEGATIVE); GLUCOSE, URINE NEGATIVE (NEGATIVE); KETONES,URINE NEGATIVE (NEGATIVE); LEUKOCYTE ESTERASE,URINE NEGATIVE (NEGATIVE); NITRITE,URINE NEGATIVE (NEGATIVE); PROTEIN,URINE NEGATIVE (NEGATIVE); URIC ACID CRYSTALS,URINE FEW /HPF; UROBILINOGEN,URINE NEGATIVE mg/dL (<2.0)
[2016-12-30 07:29] LABS: ABSOLUTE EOSINOPHILS # (AUTO) 0.1 10^3/uL (0.0-0.6); ABSOLUTE MONOCYTES (AUTO) 1.2 10^3/uL (0.1-1.4); ABSOLUTE NEUT (AUTO) 6.7 10^3/uL (1.7-8.2); BASOPHILS % (AUTO) 0.3 % (0-2); EOSINOPHILS % (AUTO) 1.3 % (0-6); HEMATOCRIT 33.1 % (37.9-51.0); HEMOGLOBIN 11.2 g/dL (13.5-17.0); HGB HCT DIFFERENCE 0.5; LYMPHOCYTES % (AUTO) 11.5 % (13-45); MEAN CORPUSCULAR HEMOGLOBIN 35.8 pg (27.0-33.4); MEAN CORPUSCULAR VOLUME 106 fl (80-97); MONOCYTES % (AUTO) 13.3 % (3-13); RED BLOOD COUNT 3.14 10^6/uL (4.35-5.55); RED CELL DISTRIBUTION WIDTH 14.1 % (11.5-14.0); SEGMENTED NEUTROPHILS % (AUTO) 73.6 % (42-78); WHITE BLOOD COUNT 9.1 10^3/uL (4.0-10.5)
[2016-12-30 07:50] LABS: ALANINE AMINOTRANSFERASE 102 U/L (21-72); ALBUMIN 2.9 g/dL (3.5-5.0); ALKALINE PHOSPHATASE 445 U/L (38-126); ANION GAP 16 (5-19); ASPARTATE AMINO TRANSFERASE 319 U/L (17-59); BILIRUBIN,DIRECT 0.8 mg/dL (0.0-0.4); BILIRUBIN,TOTAL 1.1 mg/dL (0.2-1.3); BLOOD UREA NITROGEN 103 mg/dL (7-20); CALCIUM 8.5 mg/dL (8.4-10.2); CARBON DIOXIDE 14 mmol/L (22-30); CHLORIDE 106 mmol/L (98-107); CREATININE RESULT 2.76 mg/dL (0.52-1.25); GLUCOSE 72 mg/dL (75-110); POTASSIUM 5.7 mmol/L (3.6-5.0); SODIUM 135.9 mmol/L (137-145); TOTAL PROTEIN 5.9 g/dL (6.3-8.2)
[2016-12-30 08:35] LABS: PROTHROMBIN TIME 14.2 SEC (11.4-15.4)
[2016-12-30 08:36] LABS: PARTIAL THROMBOPLASTIN TIME 45.8 SEC (23.5-35.8)
--- NOTE | 2016-12-30 09:02 | PDOC CONSULTATION ---
Consultation Consult Date: 12/30/16 Consult reason:: Liver lesions History of Present Illness Admission Date/PCP: 12/29/16 22:55 History of Present Illness: EDILIA PAN is a 51 year old male with known underlying severe congestive heart failure, reportedly under consideration for defibrillator implant, chronic tobacco use, chronic heavy alcohol use, fifth of whiskey every 2-3 days, hypertension, with recently discovered metastatic malignancy, unknown primary to the liver after presenting to the ER recently and noted liver masses and hepatomegaly who was referred to the ER when his K was 6.0 on our labs and Cr of 3.3. He was to undergo a CT guided biopsy and PET/CT as well next week. Past Medical History Cardiac Medical History: Reports: Congestive Heart Failure - Ejection fraction 20%, Hypertension Denies: DVT - Systolic, Myocardial Infarction, Hyperlipidema, Pulmonary Embolism Pulmonary Medical History: Denies: Asthma, Chronic Obstructive Pulmonary Disease (COPD) EENT Medical History: Reports: None, Eyes - Reading glasses Neurological Medical History: Reports: None Denies: Hemorrhagic CVA, Ischemic CVA, Seizures Endocrine Medical History: Reports: None Denies: Diabetes Mellitus Type 1, Diabetes Mellitus Type 2, Hyperthyroidism, Hypothyroidism Renal/ Medical History: Reports: None Malignancy Medical History: Reports: Other - Recent diagnosis of metastatic cancer with an unknown primary GI Medical History: Reports: Other - Metastatic disease to the liver Denies: Cirrhosis, Gastroesophageal Reflux Disease, Hepatitis, Peptic Ulcer Disease Musculoskeltal Medical History: Denies: Arthritis Skin Medical History: Reports: None Psychiatric Medical History: Reports: Alcohol Dependency, Tobacco Dependency Denies: Depression, General Anxiety Disorder, Substance Abuse Traumatic Medical History: Reports: None Hematology: Reports: None Infectious Medical History: Reports: None Denies: Hepatitis B, Hepatitis C Past Surgical History Past Surgical History: Reports: Orthopedic Surgery - Right hip surgery Social History Lives with: Spouse/Significant other Smoking Status: Current Every Day Smoker Cigarettes Packs Per Day: 1.5 Number of Years Smokin Last Time Smoked: 12/28/2016 Frequency of Alcohol Use: Heavy Hx Recreational Drug Use: No Drugs: None Hx Prescription Drug Abuse: No - Advance Directive Resuscitation Status: Full Code Family History Family History: Reviewed & Not Pertinent, Malignancy Parental Family History Reviewed: Yes Children Family History Reviewed: Yes Sibling(s) Family History Reviewed.: Yes Medication/Allergy Home Medications: Aspirin [Aspirin EC] 81 mg PO DAILY 12/29/16 Carvedilol [Coreg 25 mg Tablet] 1.5 tab PO Q12 12/29/16 Cinnamon Bark [Cinnamon Bark 500 mg Capsule] 1,000 mg PO DAILY 12/29/16 Furosemide [Lasix] 80 mg PO BID 12/29/16 Guaifenesin [Mucinex] 1,200 mg PO DAILY 12/29/16 Guaifenesin/P-Ephed HCl [Mucinex D Tablet] 1 tab PO DAILY 12/29/16 Lisinopril [Prinivil 40 mg Tablet] 40 mg PO DAILY 12/29/16 [place]-3 Fatty Acids/Fish Oil [Fish Oil 1,000 mg Capsule] 1,000 mg PO DAILY 12/29 Oxycodone HCl [Oxy-Ir 5 mg Tablet] 5 mg PO Q4 12/29/16 Ranitidine HCl [Heartburn Relief 150] 150 mg PO DAILY 12/29/16 Allergies/Adverse Reactions: No Known Allergies Allergy (Verified 12/29/16 16:59) Review of Systems Constitutional: PRESENT: weakness Cardiovascular: PRESENT: dyspnea on exertion Gastrointestinal: PRESENT: abdominal pain Physical Exam Vital Signs: Temp Pulse Resp BP Pulse Ox 97.8 F 81 20 106/59 L 93 12/30/16 07:28 12/30/16 07:28 12/30/16 07:28 12/30/16 07:28 12/30/16 07:28 Intake & Output 12/29/16 12/30/16 12/31/16 06:59 06:59 06:59 Intake Total 1375 Output Total 200 Balance 1175 General appearance: PRESENT: no acute distress Head exam: PRESENT: atraumatic, normocephalic Eye exam: PRESENT: EOMI, PERRLA Mouth exam: PRESENT: tongue midline Teeth exam: PRESENT: poor dentation Respiratory exam: PRESENT: prolonged expiratory phas, unlabored Cardiovascular exam: PRESENT: RRR GI/Abdominal exam: PRESENT: distended, organolmegaly, other - Liver markedly distended below the right costal margin Musculoskeletal exam: PRESENT: ambulatory, full ROM Neurological exam: PRESENT: alert, awake, oriented to person, oriented to place , oriented to time, oriented to situation, CN II-XII grossly intact, normal gait Results Laboratory Results: 12/30/16 06:49 12/30/16 06:49 12/30/16 12/30/16 12/30/16 02:15 04:15 06:49 WBC 9.1 RBC 3.14 L Hgb 11.2 L Hct 33.1 L MCV 106 H MCH 35.8 H MCHC 34.0 RDW 14.1 H Plt Count 228 Seg Neutrophils % 73.6 Lymphocytes % 11.5 L Monocytes % 13.3 H Eosinophils % 1.3 Basophils % 0.3 Absolute Neutrophils 6.7 Absolute Lymphocytes 1.0 Absolute Monocytes 1.2 Absolute Eosinophils 0.1 Absolute Basophils 0.0 Sodium Potassium 6.3 H* Chloride Carbon Dioxide Anion Gap BUN Creatinine Est GFR ( Amer) Est GFR (Non-Af Amer) Glucose Calcium Total Bilirubin AST ALT Alkaline Phosphatase Total Protein Albumin Urine Color YELLOW Urine Appearance SLIGHTLY-CLOUDY Urine pH 5.0 Ur Specific [place] 1.010 Urine Protein NEGATIVE Urine Glucose (UA) NEGATIVE Urine Ketones NEGATIVE Urine Blood SMALL H Urine Nitrite NEGATIVE Ur Leukocyte Esterase NEGATIVE Urine WBC (Auto) 1 Urine RBC (Auto) 13 12/30/16 06:49 WBC RBC Hgb Hct MCV MCH MCHC RDW Plt Count Seg Neutrophils % Lymphocytes % Monocytes % Eosinophils % Basophils % Absolute Neutrophils Absolute Lymphocytes Absolute Monocytes Absolute Eosinophils Absolute Basophils Sodium 135.9 L Potassium 5.7 H Chloride 106 Carbon Dioxide 14 L Anion Gap 16 BUN 103 H Creatinine 2.76 H Est GFR ( Amer) 29 L Est GFR (Non-Af Amer) 24 L Glucose 72 L Calcium 8.5 Total Bilirubin 1.1 AST 319 H ALT 102 H Alkaline Phosphatase 445 H Total Protein 5.9 L Albumin 2.9 L Urine Color Urine Appearance Urine pH Ur Specific [place] Urine Protein Urine Glucose (UA) Urine Ketones Urine Blood Urine Nitrite Ur Leukocyte Esterase Urine WBC (Auto) Urine RBC (Auto) Impressions: Chest X-Ray 12/29/16 18:58 IMPRESSION: Right hilar fullness, probable lymphadenopathy, consider contrast CT to further characterize. Assessment & Plan - Diagnosis (1) ARF (acute renal failure) Qualifiers: Acute renal failure type: unspecified Qualified Code(s): N17.9 - Acute kidney failure, unspecified Is this a current diagnosis for this admission?: YesPlan: Improved with IVF's and Dr. Hardin to see. (2) Hyperkalemia Is this a current diagnosis for this admission?: YesPlan: IVF's with Dr. Hardin to see. (3) Metastatic malignant neoplasm of unknown primary site Is this a current diagnosis for this admission?: YesPlan: Proceed with CT of the Chest noncontrasted and biopsy if possible but scheduled for next week if not possible. (4) Alcohol dependency Qualifiers: Substance use status: uncomplicated Qualified Code(s): F10.20 - Alcohol dependence, uncomplicated Is this a current diagnosis for this admission?: YesPlan: Will add in vitamins and watch for withdrawal. (5) Tobacco use disorder Is this a current diagnosis for this admission?: YesPlan: Encouraged cessation - Time Time Spent: 50 to 70 Minutes Critical Time spent with patient: 15-24 minutes Medications reviewed and adjusted accordingly: Yes
[2016-12-30] MEDS: MULTIVITAMIN TABLET PO SCH (11:04)
[2016-12-30] MEDS: FOLIC ACID 1 MG TABLET PO SCH (11:04)
[2016-12-30] MEDS: THIAMINE HCL 100 MG TABLET PO SCH (11:04)
[2016-12-30] MEDS: HEPARIN SOD (PORCINE) 5,000 UNIT/ML 1 ML SYRINGE SUBCUT SCH ×2 (11:05→21:41)
[2016-12-30] MEDS: ASPIRIN 81 MG TABLET, ENT COATED PO SCH (11:05)
--- NOTE | 2016-12-30 11:15 | XCELERA REPORT ---
[address] [address] Transthoracic Echocardiogram Report Name: EDILIA PAN Age: 51 yrs Gender: Male : 1965 Patient Status: Inpatient Patient Location: [id number] Study Date: 12/30/2016 10:16 AM Height: 67 in Weight: 176 lb BSA: 1.9 m2 Procedure: A complete two-dimensional transthoracic echocardiogram was performed (2D, M-mode, spectral and color flow Doppler). The study was technically difficult with many images being suboptimal in quality. Reason For Study: Cardiomyopathy Ordering Physician: ITALO MARISCAL Performed By: Leonora Waldron Interpretation Summary The Ejection Fraction estimate is 50-55% Left ventricular systolic function is borderline reduced. Doppler measurements suggest impaired left ventricular relaxation, which is associated with grade I/IV or mild diastolic dysfunction There is mild concentric left ventricular hypertrophy. The left ventricle is grossly normal size. Regional wall motion abnormalities cannot be excluded due to limited visualization. The right ventricle is grossly normal size. The right atrium is normal in size The left atrium is mildly dilated. There is a trace amount of mitral regurgitation There is no mitral valve stenosis. There is a mild to moderate amount of aortic regurgitation There is no aortic valve stenosis There is a trace or physiologic amount of tricuspid regurgitation Tricuspid regurgitation jet envelope not well defined to measure RV systolic pressure accurately. Minimal pericardial effusion. The inferior vena cava appeared small and collapsed with respiration (RAP 0-5 mmHg) MMode/2D Measurements \T\ Calculations RVDd: 3.9 cm LVIDd: 5.8 cm FS: 30.4 % Ao root diam: 4.3 cm IVSd: 1.1 cm LVIDs: 4.0 cm EDV(Teich): 165.4 ml LVPWd: 1.1 cm ESV(Teich): 71.1 ml Ao root area: 14.2 cm2 EF(Teich): 57.0 % LA dimension: 3.8 cm Doppler Measurements \T\ Calculations MV E max del: MV P1/2t max del: Ao V2 max: AI max del: 65.6 cm/sec 65.2 cm/sec 198.6 cm/sec 372.5 cm/sec MV A max del: MV P1/2t: 47.2 msec Ao max PG: AI max P.7 cm/sec 15.8 mmHg 55.5 mmHg MV E/A: 0.66 MVA(P1/2t): 4.7 cm2 AI dec slope: MV dec slope: 404.2 cm/sec2 179.9 cm/sec2 AI P1/2t: 606.4 msec LV V1 max PG: PA V2 max: TR max del: 3.2 mmHg 68.6 cm/sec 204.1 cm/sec LV V1 max: PA max P.9 mmHg TR max P.8 cm/sec 16.7 mmHg Left Ventricle The left ventricle is grossly normal size. There is mild concentric left ventricular hypertrophy. Left ventricular systolic function is borderline reduced. The Ejection Fraction estimate is 50-55%. Doppler measurements suggest impaired left ventricular relaxation, which is associated with grade I/IV or mild diastolic dysfunction. Wall motion cannot be accurately commented on, but no definite regional wall motion abnormalities noted. Regional wall motion abnormalities cannot be excluded due to limited visualization. Right Ventricle The right ventricle is grossly normal size. There is normal right ventricular wall thickness. The right ventricular systolic function is normal. Atria The right atrium is normal in size. The left atrium is mildly dilated. Interarterial septum not well visualized and not well dopplered. Cannot comment on ASD/PFO presence. Mitral Valve The mitral valve leaflets are sclerotic and show some degree of functional abnormality. There is no mitral valve stenosis. There is a trace amount of mitral regurgitation. Aortic Valve The aortic valve is mildly calcified. There is no aortic valve stenosis. There is a mild to moderate amount of aortic regurgitation. Tricuspid Valve The tricuspid valve is not well visualized secondary to technical limitations. There is no tricuspid stenosis. There is a trace or physiologic amount of tricuspid regurgitation. Tricuspid regurgitation jet envelope not well defined to measure RV systolic pressure accurately. Great Vessels The aortic root is not well visualized. The inferior vena cava appeared small and collapsed with respiration (RAP 0-5 mmHg). Effusions Minimal pericardial effusion. : ITALO MARISCAL > Italo Mariscal
[2016-12-30] MEDS ORDERED: CARVEDILOL 37.5 MG PO SCH (12:00)
[2016-12-30] MEDS: OXYCODONE HCL IR 5 MG TABLET PO PRN ×3 (12:03→21:39)
--- NOTE | 2016-12-30 12:15 | PDOC CONSULTATION ---
Consultation Consult Date: 12/30/16 Attending physician:: ROHAN RODRÍGUEZ Consult reason:: Cardiomyopathy History of Present Illness Admission Date/PCP: 12/29/16 22:55 Patient complains of: Fatigue and tiredness History of Present Illness: EDILIA PAN is a 51 year old male with known underlying severe congestive heart failure, reportedly under consideration for defibrillator implant, chronic tobacco use, chronic heavy alcohol use, fifth of whiskey every 2-3 days, hypertension, with recently discovered metastatic malignancy, unknown primary to the liver after presenting to the ER recently and noted liver masses and hepatomegaly who was referred to the ER when his K was 6.0 on our labs and Cr of 3.3. Patient gives history of congestive heart failure and history of cardiomyopathy. His still echocardiogram was approximately 3 years ago and was noted to have LVEF of 25%. It seems he was lost to follow-up since then from cardiac standpoint. Patient was admitted from the emergency department after being referred there by oncologist because of elevated potassium. Patient on questioning denied any chest pain. He denied any sustained palpitations, syncope, near syncope. Patient denied any significant pedal edema. Patient denied prior history of myocardial infarction. I was asked to evaluate patient because of history of CHF and cardiomyopathy and no recent cardiac follow-up. Apart from feeling fatigued and tired, patient actually denied any chest pain, significant dyspnea, PND, orthopnea, sustained palpitations, syncope, near syncope. Past Medical History Cardiac Medical History: Reports: Congestive Heart Failure - Ejection fraction 20%, Hypertension Denies: DVT - Systolic, Myocardial Infarction, Hyperlipidema, Pulmonary Embolism Pulmonary Medical History: Denies: Asthma, Chronic Obstructive Pulmonary Disease (COPD) EENT Medical History: Reports: None, Eyes - Reading glasses Neurological Medical History: Reports: None Denies: Hemorrhagic CVA, Ischemic CVA, Seizures Endocrine Medical History: Reports: None Denies: Diabetes Mellitus Type 1, Diabetes Mellitus Type 2, Hyperthyroidism, Hypothyroidism Renal/ Medical History: Reports: None Malignancy Medical History: Reports: Other - Recent diagnosis of metastatic cancer with an unknown primary GI Medical History: Reports: Other - Metastatic disease to the liver Denies: Cirrhosis, Gastroesophageal Reflux Disease, Hepatitis, Peptic Ulcer Disease Musculoskeltal Medical History: Denies: Arthritis Skin Medical History: Reports: None Psychiatric Medical History: Reports: Alcohol Dependency, Tobacco Dependency Denies: Depression, General Anxiety Disorder, Substance Abuse Traumatic Medical History: Reports: None Hematology: Reports: None Infectious Medical History: Reports: None Denies: Hepatitis B, Hepatitis C Past Surgical History Past Surgical History: Reports: Orthopedic Surgery - Right hip surgery Social History Information Source: Patient Lives with: Spouse/Significant other Smoking Status: Current Every Day Smoker Cigarettes Packs Per Day: 1.5 Number of Years Smokin Last Time Smoked: 12/28/2016 Frequency of Alcohol Use: Heavy Hx Recreational Drug Use: No Drugs: None Hx Prescription Drug Abuse: No - Advance Directive Resuscitation Status: Full Code Family History Family History: Reviewed & Not Pertinent, Malignancy Parental Family History Reviewed: Yes Children Family History Reviewed: Yes Sibling(s) Family History Reviewed.: Yes - Negative for premature coronary artery disease or sudden cardiac in the family amongst first degree relatives. Medication/Allergy Home Medications: Aspirin [Aspirin EC] 81 mg PO DAILY 12/29/16 Carvedilol [Coreg 25 mg Tablet] 37.5 mg PO Q12 12/29/16 Furosemide [Lasix] 80 mg PO BID 12/29/16 Lisinopril [Prinivil 40 mg Tablet] 40 mg PO DAILY 12/29/16 [place]-3 Fatty Acids/Fish Oil [Fish Oil 1,000 mg Capsule] 1,000 mg PO DAILY 12/29 Oxycodone HCl [Oxy-Ir 5 mg Tablet] 5 mg PO Q4 12/29/16 Ranitidine HCl [Heartburn Relief 150] 150 mg PO DAILYP PRN 12/29/16 Allergies/Adverse Reactions: No Known Allergies Allergy (Verified 12/29/16 16:59) Review of Systems Review of Systems: Please see history of present illness and past medical history as wall. Constitutional: No fever or chills reported. Head : No recent chronic headaches, recent head injury. Eyes: No recent eye pain, diplopia, redness, discharge, acute visual changes. Ears: No recent chronic ear pain, acute hearing loss, ear discharge. Oral cavity: No recent ulcerations, bleeding, oral cavity discomfort. Neck: No recent acute neck pain reported. Hematologic: No recent easy bruising or bleeding or hematologic malignancy reported. Recently diagnosed to have malignancy. Lymphatic: No recent lymphatic malignancy, chronic lymphadenopathy reported yet Cardiovascular system review: See history of present illness. Respiratory system review: No recent chronic cough, hemoptysis, blood clots in the lungs reported. Mild Shortness of breath on exertion Gastrointestinal system review: Negative for any recent acute or chronic abdominal pain, hematemesis, melena, recent change in bowel habits. Recent diagnosis of malignancy with metastasis to the liver. Genitourinary system review: No recent acute or chronic hematuria, flank pain, UTI etc. reported. Skin system review: Negative for any recent abnormal bruising, no rash, no pruritus reported. Neurologic: No prior history of strokes, mini strokes, seizure disorder. Psychologic: No history of major psychosis or major depression reported. Musculoskeletal: Minor aches and pains reported. No acute joint swelling reported. Endocrine: No recent polyuria, polydipsia, recent heat or cold intolerance. Physical Exam Vital Signs: Temp Pulse Resp BP Pulse Ox 97.8 F 81 20 106/59 L 93 12/30/16 07:28 12/30/16 07:28 12/30/16 07:28 12/30/16 07:28 12/30/16 07:28 Intake & Output 12/29/16 12/30/16 12/31/16 06:59 06:59 06:59 Intake Total 1375 Output Total 200 Balance 1175 Exam: GENERAL: well-nourished and in no acute distress. Alert and oriented x3 HEAD: Atraumatic, normocephalic. EYES: Pupils equal round and reactive to light, extraocular movements intact, sclera anicteric, conjunctiva are normal. ENT: TMs normal, nares patent, oropharynx clear without exudates. Moist mucous membranes. No oral ulcerations or bleeding gums noted NECK: supple without lymphadenopathy. Trachea is central. No cervical or axillary lymphadenopathy noted. Carotids are 2+, JVD WNL LUNGS: Respiration seems nonlabored, no significant accessory muscle action noted. Breath sounds clear to auscultation bilaterally and equal noted. No wheezes rales or rhonchi noted. No significant dullness noted on percussion. CHEST: Palpation of the chest wall shows no significant chest wall tenderness. No other significant abnormalities noted. 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 ABDOMEN: Soft, no significant tenderness appreciated, normoactive bowel sounds. No guarding, no rebound. No rigidity noted . No masses appreciated. Liver is enlarged and firm. EXTREMITIES: Pedal pulses are 1-2+, no calf tenderness noted. No clubbing or cyanosis.trace to 1+ pedal edema noted NEUROLOGICAL: Focused neurological exam showed no significant neurologic deficit. Normal speech, no focal weakness appreciated. PSYCH: Normal mood, normal affect. Judgment and insight within normal limits. SKIN: No significant ecchymosis, rash, ulcerations or signs of pruritus noted. MUSCULOSKELETAL EXAM: No significant joint swelling noted. Results Laboratory Results: 12/30/16 06:49 12/30/16 06:49 12/30/16 12/30/16 12/30/16 02:15 04:15 06:49 WBC 9.1 RBC 3.14 L Hgb 11.2 L Hct 33.1 L MCV 106 H MCH 35.8 H MCHC 34.0 RDW 14.1 H Plt Count 228 Seg Neutrophils % 73.6 Lymphocytes % 11.5 L Monocytes % 13.3 H Eosinophils % 1.3 Basophils % 0.3 Absolute Neutrophils 6.7 Absolute Lymphocytes 1.0 Absolute Monocytes 1.2 Absolute Eosinophils 0.1 Absolute Basophils 0.0 Sodium Potassium 6.3 H* Chloride Carbon Dioxide Anion Gap BUN Creatinine Est GFR ( Amer) Est GFR (Non-Af Amer) Glucose Calcium Total Bilirubin AST ALT Alkaline Phosphatase Total Protein Albumin Urine Color YELLOW Urine Appearance SLIGHTLY-CLOUDY Urine pH 5.0 Ur Specific [place] 1.010 Urine Protein NEGATIVE Urine Glucose (UA) NEGATIVE Urine Ketones NEGATIVE Urine Blood SMALL H Urine Nitrite NEGATIVE Ur Leukocyte Esterase NEGATIVE Urine WBC (Auto) 1 Urine RBC (Auto) 13 12/30/16 06:49 WBC RBC Hgb Hct MCV MCH MCHC RDW Plt Count Seg Neutrophils % Lymphocytes % Monocytes % Eosinophils % Basophils % Absolute Neutrophils Absolute Lymphocytes Absolute Monocytes Absolute Eosinophils Absolute Basophils Sodium 135.9 L Potassium 5.7 H Chloride 106 Carbon Dioxide 14 L Anion Gap 16 BUN 103 H Creatinine 2.76 H Est GFR ( Amer) 29 L Est GFR (Non-Af Amer) 24 L Glucose 72 L Calcium 8.5 Total Bilirubin 1.1 AST 319 H ALT 102 H Alkaline Phosphatase 445 H Total Protein 5.9 L Albumin 2.9 L Urine Color Urine Appearance Urine pH Ur Specific [place] Urine Protein Urine Glucose (UA) Urine Ketones Urine Blood Urine Nitrite Ur Leukocyte Esterase Urine WBC (Auto) Urine RBC (Auto) 12/30/16 06:49 NT-Pro-B Natriuret Pep 728 EKG Comments: Sinus rhythm, no acute ST-T wave changes noted. Cannot rule out prior inferior ND. Impressions: Chest X-Ray 12/29/16 18:58 IMPRESSION: Right hilar fullness, probable lymphadenopathy, consider contrast CT to further characterize. Assessment & Plan - Diagnosis (1) Cardiomyopathy Qualifiers: Cardiomyopathy type: unspecified Qualified Code(s): I42.9 - Cardiomyopathy, unspecified Is this a current diagnosis for this admission?: Yes (2) ARF (acute renal failure) Qualifiers: Acute renal failure type: unspecified Qualified Code(s): N17.9 - Acute kidney failure, unspecified Is this a current diagnosis for this admission?: Yes (3) Abdominal pain, generalized Is this a current diagnosis for this admission?: Yes (4) Hyperkalemia Is this a current diagnosis for this admission?: Yes (5) Alcohol dependency Qualifiers: Substance use status: uncomplicated Qualified Code(s): F10.20 - Alcohol dependence, uncomplicated Is this a current diagnosis for this admission?: Yes (6) Tobacco use disorder Is this a current diagnosis for this admission?: Yes (7) Metastatic malignant neoplasm of unknown primary site Is this a current diagnosis for this admission?: Yes (8) Elevated LFTs Is this a current diagnosis for this admission?: Yes - Notes Notes: Cardiomyopathy: Patient has a history of depressed LVEF. Exact etiology not clear but will review previous records. Chest x-ray shows rather normal cardiac silhouette and no evidence of CHF, therefore there is a os obesity that patient's LVEF has significantly improved. In this regard will obtain a BNP level and also a 2-D echocardiogram. Acute renal failure: Exact etiology not clear but fleshing machine operator will be evaluating the patient. In this regard will encourage fluid intake, hold lisinopril for the time being. Recommend ultrasound of the kidneys, possible [place] catheter. Abdominal pain: Probably secondary to metastasis. Abnormal liver function test: Most likely related to liver metastases and possible alcoholic hepatitis. Hyperkalemia: Related to acute renal failure and ARDEN inhibitor use. Would recommend reinstituting ARDEN inhibitor if at all feasible due to history of cardiomyopathy. Alcohol dependency: Possible alcoholic cardiomyopathy. Patient has been advised to quit drinking. Tobacco use disorder: Patient has been advised to quit smoking. - Time Time Spent: 30 to 50 Minutes - CODE STATUS was discussed, patient remains full code. Surrogate decision-maker patient REINA RAMOS. Multiple medical problems were addressed.More than 50% of the time spent coordinating care, discussing management plans with involved caregivers. Management plans discussed with involved personnels. Medical decision making was of moderate to high complexity, patient's has multiple severe comorbidities. Medications reviewed and adjusted accordingly: Yes
--- NOTE | 2016-12-30 16:17 | PDOC CONSULTATION ---
Consultation Consult Date: 12/30/16 Attending physician:: MARGOTH SILVEIRA Consult reason:: I was asked with the hospitalist service to see the patient because of hyperkalemia and acute renal failure. History of Present Illness Admission Date/PCP: 12/29/16 22:55 History of Present Illness: EDILIA PAN is a 51 year old male with known underlying severe congestive heart failure, reportedly under consideration for defibrillator implant but patient declined due to his work, chronic tobacco use, chronic heavy alcohol use, fifth of whiskey every 2-3 days, hypertension, with recently discovered metastatic malignancy, unknown primary to the liver after presenting to the ER recently and noted liver masses and hepatomegaly who was referred to the ER when his K was 6.0 on our labs and Cr of 3.3. Patient gives history of congestive heart failure and history of cardiomyopathy. His still echocardiogram was approximately 3 years ago and was noted to have LVEF of 25%. It seems he was lost to follow-up since then from cardiac standpoint. Patient was admitted from the emergency department after being referred there by oncologist because of elevated potassium. Patient on questioning denied any chest pain. He denied any sustained palpitations, syncope, near syncope. Patient denied any significant pedal edema. Patient denied prior history of myocardial infarction. On presentation yesterday the patient was found to have a BUN of 119 and creatinine of 3.9 with estimated GFR of 16. On 12/20/2016 had a BUN of 31 creatinine of 1.14 with estimated GFR greater than 60, basically with normal kidney function. Patient's potassium yesterday was also 6.9 and a CO2 of 17. Patient had abdominal CT scan with IV contrast on December 21. His urinalysis showed only small blood but no protein is pretty much unremarkable. Echocardiogram was done today which showed left ventricular ejection fraction of 50-55% and grade 1 over 4 diastolic dysfunction which is much improved from what was reported about 3 years ago. Patient also presented with severe hypotension as low as 76/50 upon presentation. Patient is taking lisinopril, furosemide and Coreg and has been taking his medications despite hypotension. Patient does not check his blood pressure at home. Patient claims that he feels tired, his legs feel heavy, he has back pain, abdominal pain, and headache. He admits having some diarrhea which is resolved until he was given SPS here in the hospital. He denied any nausea, vomiting and admits drinking a lot of water at least 4-8 ounces every day. He admits decrease in appetite and has lost 20+ pounds for the last month. He denies any known kidney problems in the past nor history of kidney stone. He denies noticing decrease in urine output for the last few days or few weeks. He denies any history of BPH. In the emergency room patient was given IV fluid boluses and is being continued currently. He was given medication for hyperkalemia including Kayexalate, calcium gluconate, nebulization treatment. His potassium is currently improved to 5.7 today. His lisinopril and furosemide were held. His Coreg is still on his medication list. He is making urine. Patient was seen by pet caregiver Dr. Luna. He is also being seen by his oncologist Dr. Gardner. Past Medical History Cardiac Medical History: Reports: CHF-Diastolic, Hypertension-primary Malignancy Medical History: Reports: Other - Recent diagnosis of metastatic cancer with an unknown primary GI Medical History: Reports: Other - Metastatic disease to the liver Psychiatric Medical History: Reports: Alcohol Dependency, Tobacco Dependency Past Surgical History Past Surgical History: Reports: Orthopedic Surgery - Right hip surgery Social History Lives with: Spouse/Significant other Smoking Status: Current Every Day Smoker - One to one and half pack per day since he was in grade school Cigarettes Packs Per Day: 1.5 Number of Years Smokin Last Time Smoked: 12/28/2016 Frequency of Alcohol Use: Heavy - Half a pint to a pint of liquor 5 days out of 7 Hx Recreational Drug Use: No Drugs: None Hx Prescription Drug Abuse: No - Advance Directive Resuscitation Status: Full Code Family History Family History: Malignancy - Mother Parental Family History Reviewed: Yes Children Family History Reviewed: NA Sibling(s) Family History Reviewed.: Yes Medication/Allergy Home Medications: Aspirin [Aspirin EC] 81 mg PO DAILY 12/29/16 Carvedilol [Coreg 25 mg Tablet] 37.5 mg PO Q12 12/29/16 Furosemide [Lasix] 80 mg PO BID 12/29/16 Lisinopril [Prinivil 40 mg Tablet] 40 mg PO DAILY 12/29/16 [place]-3 Fatty Acids/Fish Oil [Fish Oil 1,000 mg Capsule] 1,000 mg PO DAILY 12/29 Oxycodone HCl [Oxy-Ir 5 mg Tablet] 5 mg PO Q4 12/29/16 Ranitidine HCl [Heartburn Relief 150] 150 mg PO DAILYP PRN 12/29/16 Allergies/Adverse Reactions: No Known Allergies Allergy (Verified 12/29/16 16:59) Review of Systems All systems: reviewed and no additional remarkable complaints except as stated Review of Systems: Constitutional: ABSENT: chills, fever(s), weight gain; admits fatigue, headache , and 20+ weight loss within a month Eyes: ABSENT: visual disturbances Ears: ABSENT: hearing changes Cardiovascular: ABSENT: chest pain, dyspnea on exertion, edema, orthropnea, palpitations Respiratory: ABSENT: cough, dyspnea, hemoptysis Gastrointestinal: ABSENT: constipation, hematemesis, hematochezia, nausea, vomiting; admits abdominal pain and diarrhea Genitourinary: ABSENT: dysuria, hematuria Musculoskeletal: ABSENT: joint swelling Integumentary: ABSENT: rash, wounds Neurological: ABSENT: abnormal gait, abnormal speech, confusion, dizziness, focal weakness, numbness, syncope Psychiatric: ABSENT: anxiety, depression Endocrine: ABSENT: cold intolerance, heat intolerance, polydipsia, polyuria Hematologic/Lymphatic: ABSENT: easy bleeding, easy bruising, lymphadenopathy Physical Exam Vital Signs: Temp Pulse Resp BP Pulse Ox 97.8 F 81 20 106/59 L 93 12/30/16 07:28 12/30/16 07:28 12/30/16 07:28 12/30/16 07:28 12/30/16 07:28 Intake & Output 12/29/16 12/30/16 12/31/16 06:59 06:59 06:59 Intake Total 1375 741 Output Total 200 Balance 1175 741 Exam: General appearance: no acute distress, cooperative, well-developed, well- nourished Head exam: PRESENT: atraumatic, normocephalic Eye exam: PRESENT: Conjunctiva [place], EOMI, PERRLA. ABSENT: conjunctival injection, scleral icterus Mouth exam: PRESENT: moist, neck supple, tongue midline Neck exam: PRESENT: full ROM. ABSENT: carotid bruit, JVD, lymphadenopathy, thyromegaly Respiratory exam: PRESENT: clear to auscultation bilaterally. ABSENT: rales, rhonchi, stridor, wheezes Cardiovascular exam: PRESENT: RRR, +S1, +S2. ABSENT: systolic murmur Pulses: PRESENT: normal radial pulses, normal dorsalis pedis pulses GI/Abdominal exam: PRESENT: normal bowel sounds, soft. Positive hepatomegaly ABSENT: guarding, mass, tenderness Rectal exam: deferred Extremities exam: PRESENT: full ROM. ABSENT: calf tenderness, pedal edema Musculoskeletal: PRESENT: full ROM. ABSENT: deformity Neurological exam: PRESENT: alert, Awake, Oriented to person, Oriented to place , Oriented to time, reflexes normal, CN II-XII grossly intact. ABSENT: motor sensory deficit Psychiatric exam: PRESENT: appropriate affect, normal mood. ABSENT: homicidal ideation, suicidal ideation Skin exam: PRESENT: intact, dry, warm. ABSENT: rash Results Laboratory Results: 12/30/16 06:49 12/30/16 06:49 12/30/16 12/30/16 12/30/16 02:15 04:15 06:49 WBC 9.1 RBC 3.14 L Hgb 11.2 L Hct 33.1 L MCV 106 H MCH 35.8 H MCHC 34.0 RDW 14.1 H Plt Count 228 Seg Neutrophils % 73.6 Lymphocytes % 11.5 L Monocytes % 13.3 H Eosinophils % 1.3 Basophils % 0.3 Absolute Neutrophils 6.7 Absolute Lymphocytes 1.0 Absolute Monocytes 1.2 Absolute Eosinophils 0.1 Absolute Basophils 0.0 Sodium Potassium 6.3 H* Chloride Carbon Dioxide Anion Gap BUN Creatinine Est GFR ( Amer) Est GFR (Non-Af Amer) Glucose Calcium Total Bilirubin AST ALT Alkaline Phosphatase Total Protein Albumin Urine Color YELLOW Urine Appearance SLIGHTLY-CLOUDY Urine pH 5.0 Ur Specific [place] 1.010 Urine Protein NEGATIVE Urine Glucose (UA) NEGATIVE Urine Ketones NEGATIVE Urine Blood SMALL H Urine Nitrite NEGATIVE Ur Leukocyte Esterase NEGATIVE Urine WBC (Auto) 1 Urine RBC (Auto) 13 12/30/16 06:49 WBC RBC Hgb Hct MCV MCH MCHC RDW Plt Count Seg Neutrophils % Lymphocytes % Monocytes % Eosinophils % Basophils % Absolute Neutrophils Absolute Lymphocytes Absolute Monocytes Absolute Eosinophils Absolute Basophils Sodium 135.9 L Potassium 5.7 H Chloride 106 Carbon Dioxide 14 L Anion Gap 16 BUN 103 H Creatinine 2.76 H Est GFR ( Amer) 29 L Est GFR (Non-Af Amer) 24 L Glucose 72 L Calcium 8.5 Total Bilirubin 1.1 AST 319 H ALT 102 H Alkaline Phosphatase 445 H Total Protein 5.9 L Albumin 2.9 L Urine Color Urine Appearance Urine pH Ur Specific [place] Urine Protein Urine Glucose (UA) Urine Ketones Urine Blood Urine Nitrite Ur Leukocyte Esterase Urine WBC (Auto) Urine RBC (Auto) 12/30/16 06:49 NT-Pro-B Natriuret Pep 728 Impressions: Chest X-Ray 12/29/16 18:58 IMPRESSION: Right hilar fullness, probable lymphadenopathy, consider contrast CT to further characterize. Chest CT 12/30/16 00:00 IMPRESSION: Findings consistent with diffuse metastatic disease involving bulky mediastinal and right hilar lymphadenopathy as well as a few bilateral pulmonary nodules, multiple lesions in the liver, and multiple faint hypodensities in the thoracic spine. Assessment & Plan - Diagnosis (1) Acute kidney injury Is this a current diagnosis for this admission?: YesPlan: This is most likely secondary to multifactorial causes to include possible contrast nephropathy and possible acute tubular necrosis secondary to severe hypotension in the presence of blood pressure medications including lisinopril and furosemide. Patient is currently nonoliguric. There is no evidence of hydronephrosis on CT scan done on December 21. Currently the patient is responding to IV fluid hydration with improvement of kidney function slowly. Agree with holding lisinopril and furosemide. Decrease dose of Coreg. Avoid further nephrotoxic agents. Patient does not need any acute renal replacement therapy. Continue to monitor kidney function. Strict intake and output. I instructed patient's nurse and MUSEUM DOCENT to do accurate recording the patient's urine output. We will also check urine for sodium and creatinine. (2) Hypotension Qualifiers: Hypotension type: unspecified hypotension type Qualified Code(s): I95.9 - Hypotension, unspecified Is this a current diagnosis for this admission?: YesPlan: Agree with holding lisinopril, furosemide. Decrease the dose of Coreg to 3.125 mg by mouth every 12 hours and hold it if the systolic blood pressures less than 110. (3) Hyperkalemia Is this a current diagnosis for this admission?: YesPlan: Patient was given a cocktail of medications for hyperkalemia including calcium gluconate and Kayexalate yesterday. Potassium is coming down now. The IV fluids should help this as well. (4) Metabolic acidosis Is this a current diagnosis for this admission?: YesPlan: Change IV fluid to a sodium bicarbonate drip with 3 amp of bicarbonate in D5 water to run at 150 mL an hour. (5) Metastatic malignant neoplasm of unknown primary site Is this a current diagnosis for this admission?: YesPlan: Oncologist Dr. Gardner is following the patient. (6) Elevated LFTs Is this a current diagnosis for this admission?: Yes (7) Cardiomyopathy Qualifiers: Cardiomyopathy type: unspecified Qualified Code(s): I42.9 - Cardiomyopathy, unspecified Is this a current diagnosis for this admission?: Yes (8) Anemia Is this a current diagnosis for this admission?: Yes - Notes Notes: Thank you very much for this consultation. I will follow the patient with you. - Time Time Spent: Greater than 70 Minutes
[2016-12-30] MEDS: DEXTROSE 5%-WATER 1000 ML 1,000 ML with SODIUM BICARBONATE 100 MEQ IV PRN ×2 (20:14)
[2016-12-30 20:16] LABS: URINE CREATININE 45.7 mg/dL (22-328)
[2016-12-30] MEDS: CARVEDILOL 3.125 MG TABLET PO SCH (21:22)
[2016-12-30] MEDS: ONDANSETRON HCL INJ/PF 4 MG/2 ML SDV IV PRN (21:38)
[2016-12-30] MEDS: LORAZEPAM 1 MG TABLET PO PRN (21:40)
[2016-12-30] MEDS ORDERED: CARVEDILOL 12.5 MG TABLET PO SCH (22:00)
[2016-12-31 06:02] LABS: ANION GAP 14 (5-19); CALCIUM 9.2 mg/dL (8.4-10.2); CARBON DIOXIDE 20 mmol/L (22-30); CHLORIDE 104 mmol/L (98-107); CREATININE RESULT 1.34 mg/dL (0.52-1.25); GLUCOSE 111 mg/dL (75-110); PHOSPHORUS 4.9 mg/dL (2.5-4.5); POTASSIUM 5.1 mmol/L (3.6-5.0); SODIUM 138.1 mmol/L (137-145)
[2016-12-31] MEDS ORDERED: SODIUM BICARBONATE 8.4% INJ 50 MEQ/50 ML DISP.SYRIN IV PRN (06:55)
[2016-12-31 07:24] LABS: BLOOD UREA NITROGEN 64 mg/dL (7-20)
[2016-12-31] MEDS: HEPARIN SOD (PORCINE) 5,000 UNIT/ML 1 ML SYRINGE SUBCUT SCH ×2 (09:06→21:11)
[2016-12-31] MEDS: CARVEDILOL 3.125 MG TABLET PO SCH (09:10)
[2016-12-31] MEDS: DEXTROSE 5%-WATER 1000 ML 1,000 ML with SODIUM BICARBONATE 100 MEQ IV PRN ×4 (09:10→18:32)
[2016-12-31] MEDS: FOLIC ACID 1 MG TABLET PO SCH (09:11)
[2016-12-31] MEDS: ASPIRIN 81 MG TABLET, ENT COATED PO SCH (09:11)
[2016-12-31] MEDS: MULTIVITAMIN TABLET PO SCH (09:11)
[2016-12-31] MEDS: THIAMINE HCL 100 MG TABLET PO SCH (09:12)
[2016-12-31] MEDS: OXYCODONE HCL IR 5 MG TABLET PO PRN ×2 (09:18→21:09)
[2016-12-31] MEDS: LORAZEPAM 1 MG TABLET PO PRN ×2 (09:19→21:10)
--- NOTE | 2016-12-31 10:48 | PDOC PROGRESS REPORT ---
Subjective Progress Note for:: 12/30/16 Subjective:: The patient was seen earlier today on rounds. The patient complains of full body, global pain. When asked for specifics the patient stated "I have cancer and needs strong medicine for pain". The patient denies any nausea, vomiting , diarrhea, shortness of breath, dizziness, chest pain, heart palpitations, fevers, or chills. The patient has remained afebrile. Blood pressures have been in a good range. When prompted the patient voices no other concerns at this time. Review of systems: The rest of the review of systems is negative. Physical Exam Vital Signs: Temp Pulse Resp BP Pulse Ox 98.4 F 85 20 122/76 96 12/30/16 15:37 12/30/16 15:37 12/30/16 15:37 12/30/16 15:37 12/30/16 15:37 Intake & Output 12/28/16 12/29/16 12/30/16 23:59 23:59 23:59 Intake Total 2116 Output Total 200 Balance 1916 General appearance: PRESENT: no acute distress, cooperative, well-developed, well-nourished Head exam: PRESENT: atraumatic, normocephalic Eye exam: PRESENT: conjunctiva pink, EOMI, PERRLA. ABSENT: scleral icterus Ear exam: PRESENT: normal external ear exam Mouth exam: PRESENT: moist, tongue midline Neck exam: ABSENT: carotid bruit, JVD, lymphadenopathy, thyromegaly Respiratory exam: PRESENT: clear to auscultation jcarlos, symmetrical, unlabored. ABSENT: rales, rhonchi, tachypnea, wheezes Cardiovascular exam: PRESENT: RRR. ABSENT: diastolic murmur, rubs, systolic murmur Pulses: PRESENT: normal dorsalis pedis pul Vascular exam: PRESENT: normal capillary refill GI/Abdominal exam: PRESENT: normal bowel sounds, soft. ABSENT: distended, guarding, mass, organolmegaly, rebound, tenderness Rectal exam: PRESENT: deferred Extremities exam: PRESENT: full ROM. ABSENT: calf tenderness, clubbing, pedal edema Neurological exam: PRESENT: alert, awake, oriented to person, oriented to place , oriented to time, oriented to situation, CN II-XII grossly intact. ABSENT: motor sensory deficit Psychiatric exam: PRESENT: agitated, appropriate affect, normal mood. ABSENT: homicidal ideation, suicidal ideation Skin exam: PRESENT: dry, intact, warm. ABSENT: cyanosis, rash Results Laboratory Results: 12/30/16 06:49 12/30/16 06:49 12/30/16 12/30/16 12/30/16 02:15 04:15 06:49 WBC 9.1 RBC 3.14 L Hgb 11.2 L Hct 33.1 L MCV 106 H MCH 35.8 H MCHC 34.0 RDW 14.1 H Plt Count 228 Seg Neutrophils % 73.6 Lymphocytes % 11.5 L Monocytes % 13.3 H Eosinophils % 1.3 Basophils % 0.3 Absolute Neutrophils 6.7 Absolute Lymphocytes 1.0 Absolute Monocytes 1.2 Absolute Eosinophils 0.1 Absolute Basophils 0.0 Sodium Potassium 6.3 H* Chloride Carbon Dioxide Anion Gap BUN Creatinine Est GFR ( Amer) Est GFR (Non-Af Amer) Glucose Calcium Total Bilirubin AST ALT Alkaline Phosphatase Total Protein Albumin Urine Color YELLOW Urine Appearance SLIGHTLY-CLOUDY Urine pH 5.0 Ur Specific [place] 1.010 Urine Protein NEGATIVE Urine Glucose (UA) NEGATIVE Urine Ketones NEGATIVE Urine Blood SMALL H Urine Nitrite NEGATIVE Ur Leukocyte Esterase NEGATIVE Urine WBC (Auto) 1 Urine RBC (Auto) 13 12/30/16 06:49 WBC RBC Hgb Hct MCV MCH MCHC RDW Plt Count Seg Neutrophils % Lymphocytes % Monocytes % Eosinophils % Basophils % Absolute Neutrophils Absolute Lymphocytes Absolute Monocytes Absolute Eosinophils Absolute Basophils Sodium 135.9 L Potassium 5.7 H Chloride 106 Carbon Dioxide 14 L Anion Gap 16 BUN 103 H Creatinine 2.76 H Est GFR ( Amer) 29 L Est GFR (Non-Af Amer) 24 L Glucose 72 L Calcium 8.5 Total Bilirubin 1.1 AST 319 H ALT 102 H Alkaline Phosphatase 445 H Total Protein 5.9 L Albumin 2.9 L Urine Color Urine Appearance Urine pH Ur Specific [place] Urine Protein Urine Glucose (UA) Urine Ketones Urine Blood Urine Nitrite Ur Leukocyte Esterase Urine WBC (Auto) Urine RBC (Auto) 12/30/16 06:49 NT-Pro-B Natriuret Pep 728 Impressions: Chest X-Ray 12/29/16 18:58 IMPRESSION: Right hilar fullness, probable lymphadenopathy, consider contrast CT to further characterize. Chest CT 12/30/16 00:00 IMPRESSION: Findings consistent with diffuse metastatic disease involving bulky mediastinal and right hilar lymphadenopathy as well as a few bilateral pulmonary nodules, multiple lesions in the liver, and multiple faint hypodensities in the thoracic spine. Assessment & Plan - Diagnosis (1) ARF (acute renal failure) Qualifiers: Acute renal failure type: unspecified Qualified Code(s): N17.9 - Acute kidney failure, unspecified Is this a current diagnosis for this admission?: YesPlan: Do appreciate nephrology's input with this. Will continue gently hydrate and await recommendations. (2) Cardiomyopathy Qualifiers: Cardiomyopathy type: unspecified Qualified Code(s): I42.9 - Cardiomyopathy, unspecified Is this a current diagnosis for this admission?: YesPlan: High suspicion for alcoholic myocarditis. Currently awaiting repeat echocardiogram. Do appreciate cardiology's input with this. (3) Hyperkalemia Is this a current diagnosis for this admission?: YesPlan: Secondary to #1 as well as ARDEN inhibitor. Overall has improved with Kayexalate and calcium gluconate. (4) Hypotension Qualifiers: Hypotension type: unspecified hypotension type Qualified Code(s): I95.9 - Hypotension, unspecified Is this a current diagnosis for this admission?: YesPlan: This has improved with hydration and holding blood pressure medications. (5) Metabolic acidosis Is this a current diagnosis for this admission?: YesPlan: To appreciate nephrology input. (6) Metastatic malignant neoplasm of unknown primary site Is this a current diagnosis for this admission?: YesPlan: The patients have CT-guided biopsy on Monday. Do appreciate Dr. Gardner's input with this. (7) Alcohol dependency Qualifiers: Substance use status: uncomplicated Qualified Code(s): F10.20 - Alcohol dependence, uncomplicated Is this a current diagnosis for this admission?: YesPlan: Will supplement B vitamins. (8) Thyroid mass Is this a current diagnosis for this admission?: Yes (9) Tobacco use disorder Is this a current diagnosis for this admission?: YesPlan: Spent 3 minutes discussing smoking cessation education. The patient declines any pharmacological intervention at this time however will add a PRN nicotine patch. - Time Time Spent with patient: 35 or more minutes Medications reviewed and adjusted accordingly: Yes Anticipated discharge: Home Within: Other Disposition: The patient is a full code. Pending patient's symptomatology and diagnostic findings will reevaluate in the a.m.
--- NOTE | 2016-12-31 11:24 | PDOC PROGRESS REPORT ---
Subjective Progress Note for:: 12/31/16 Subjective:: No acute events overnight patient seems to be feeling a little bit better today Physical Exam Vital Signs: Temp Pulse Resp BP Pulse Ox 98.7 F 78 20 131/81 H 94 12/31/16 07:18 12/31/16 07:18 12/31/16 07:18 12/31/16 07:18 12/31/16 07:18 Intake & Output 12/30/16 12/31/16 01/01/17 06:59 06:59 06:59 Intake Total 1375 3745 Output Total 200 1925 Balance 1175 1820 Weight 79.3 kg Results Laboratory Results: 12/30/16 06:49 12/31/16 05:00 12/31/16 05:00 Sodium 138.1 Potassium 5.1 H Chloride 104 Carbon Dioxide 20 L Anion Gap 14 BUN 64 H D Creatinine 1.34 H Est GFR ( Amer) > 60 Est GFR (Non-Af Amer) 56 L Glucose 111 H Calcium 9.2 Phosphorus 4.9 H 12/30/16 06:49 NT-Pro-B Natriuret Pep 728 Impressions: Chest X-Ray 12/29/16 18:58 IMPRESSION: Right hilar fullness, probable lymphadenopathy, consider contrast CT to further characterize. Chest CT 12/30/16 00:00 IMPRESSION: Findings consistent with diffuse metastatic disease involving bulky mediastinal and right hilar lymphadenopathy as well as a few bilateral pulmonary nodules, multiple lesions in the liver, and multiple faint hypodensities in the thoracic spine. Assessment & Plan - Diagnosis (1) Metastatic malignant neoplasm of unknown primary site Is this a current diagnosis for this admission?: YesPlan: He does appear to have metastatic carcinoma of some type, he does have hilar and mediastinal lesions as well as bone lesions liver lesions. Given history overall picture would be most likely consistent with something like a lung cancer with metastasis, next step would be liver biopsy. This has been ordered. - Time Time Spent with patient: 35 or more minutes Critical Time spent with patient: 35 or more minutes Disposition: Spent greater than 35 minutes in discussion with patient about next steps of care - Inpatient Certification Based on my medical assessment, after consideration of the patient's comorbidities, presenting symptoms, or acuity I expect that the services needed warrant INPATIENT care.: Yes I certify that my determination is in accordance with my understanding of Medicare's requirements for reasonable and necessary INPATIENT services [42 CFR 412.3e].: Yes Medical Necessity: Need for Surgery
--- NOTE | 2016-12-31 11:26 | PDOC PROGRESS REPORT ---
Subjective Progress Note for:: 12/31/16 Subjective:: Patient seems to be doing better with gradual improvement. Pt is denying any chest arm or neck discomfort. Patient denying any PND, orthopnea. Patient denied any sustained palpitations, dizziness, syncope, near syncope. Patient denying any fever chills. Patient denying any other significant discomfort. Patient is maintaining sinus rhythm. 2-D echocardiogram results were discussed Review of systems: Rest review of systems negative. Medications: Medications have been reviewed. Physical Exam Vital Signs: Temp Pulse Resp BP Pulse Ox 98.7 F 78 20 131/81 H 94 12/31/16 07:18 12/31/16 07:18 12/31/16 07:18 12/31/16 07:18 12/31/16 07:18 Intake & Output 12/30/16 12/31/16 01/01/17 06:59 06:59 06:59 Intake Total 1375 3745 Output Total 200 1925 Balance 1175 1820 Weight 79.3 kg Exam: GENERAL: well-nourished and in no acute distress. Alert and oriented x3 HEAD: Atraumatic, normocephalic. EYES: Pupils equal round and reactive to light, extraocular movements intact, sclera anicteric, conjunctiva are normal. ENT: TMs normal, nares patent, oropharynx clear without exudates. Moist mucous membranes. No oral ulcerations or bleeding gums noted NECK: supple without lymphadenopathy. Trachea is central. No cervical or axillary lymphadenopathy noted. Carotids are 2+, JVD WNL LUNGS: Respiration seems nonlabored, no significant accessory muscle action noted. Breath sounds clear to auscultation bilaterally and equal noted. No wheezes rales or rhonchi noted. No significant dullness noted on percussion. CHEST: Palpation of the chest wall shows no significant chest wall tenderness. No other significant abnormalities noted. HEART: [place] [employer], No PSH, 1/6 PETER aortic area, 1/6 macias systolic murmur mitral area, no rubs, no gallops. ABDOMEN: Soft, no significant tenderness appreciated, normoactive bowel sounds. No guarding, no rebound. No rigidity noted . No masses appreciated. Liver enlargement noted with firm liver edge. EXTREMITIES: Pedal pulses are 1-2+, no calf tenderness noted. No clubbing or cyanosis.trace to 1+ pedal edema noted NEUROLOGICAL: Focused neurological exam showed no significant neurologic deficit. Normal speech, no focal weakness appreciated. PSYCH: Normal mood, normal affect. Judgment and insight within normal limits. SKIN: No significant ecchymosis, rash, ulcerations or signs of pruritus noted. MUSCULOSKELETAL EXAM: No significant joint swelling noted. Results Laboratory Results: 12/30/16 06:49 12/31/16 05:00 12/31/16 05:00 Sodium 138.1 Potassium 5.1 H Chloride 104 Carbon Dioxide 20 L Anion Gap 14 BUN 64 H D Creatinine 1.34 H Est GFR ( Amer) > 60 Est GFR (Non-Af Amer) 56 L Glucose 111 H Calcium 9.2 Phosphorus 4.9 H 12/30/16 06:49 NT-Pro-B Natriuret Pep 728 Impressions: Chest X-Ray 12/29/16 18:58 IMPRESSION: Right hilar fullness, probable lymphadenopathy, consider contrast CT to further characterize. Chest CT 12/30/16 00:00 IMPRESSION: Findings consistent with diffuse metastatic disease involving bulky mediastinal and right hilar lymphadenopathy as well as a few bilateral pulmonary nodules, multiple lesions in the liver, and multiple faint hypodensities in the thoracic spine. Assessment & Plan - Diagnosis (1) Cardiomyopathy Qualifiers: Cardiomyopathy type: unspecified Qualified Code(s): I42.9 - Cardiomyopathy, unspecified Is this a current diagnosis for this admission?: Yes (2) ARF (acute renal failure) Qualifiers: Acute renal failure type: unspecified Qualified Code(s): N17.9 - Acute kidney failure, unspecified Is this a current diagnosis for this admission?: Yes (3) Abdominal pain, generalized Is this a current diagnosis for this admission?: Yes (4) Hyperkalemia Is this a current diagnosis for this admission?: Yes (5) Alcohol dependency Qualifiers: Substance use status: uncomplicated Qualified Code(s): F10.20 - Alcohol dependence, uncomplicated Is this a current diagnosis for this admission?: Yes (6) Tobacco use disorder Is this a current diagnosis for this admission?: Yes (7) Metastatic malignant neoplasm of unknown primary site Is this a current diagnosis for this admission?: Yes (8) Elevated LFTs Is this a current diagnosis for this admission?: Yes - Notes Notes: Cardiomyopathy: Patient has a history of depressed LVEF. 2-D echo results showed significant improvement in LVEF from before. Chest x-ray shows rather normal cardiac silhouette and no evidence of CHF. BNP level was WNL. In view of significantly improve LVEF, patient no longer needs to be considered for prophylactic defibrillator placement. Acute renal failure: Exact etiology not clear but hemp fiber taker off will be evaluating the patient. In this regard will encourage fluid intake, hold lisinopril for the time being. Patient did see hemp fiber taker off and she had made some changes. Abdominal pain: Probably secondary to metastasis. Abnormal liver function test: Most likely related to liver metastases and possible alcoholic hepatitis. Hyperkalemia: Related to acute renal failure and ARDEN inhibitor use. Would recommend reinstituting ARDEN inhibitor if at all feasible due to history of cardiomyopathy. Alcohol dependency: Possible alcoholic cardiomyopathy. Patient has been advised to quit drinking. Tobacco use disorder: Patient has been advised to quit smoking. Today I have increased carvedilol to 6.25 mg by mouth every 12. Will consider instituting ARDEN inhibitor therapy once cleared by the hemp fiber taker off. - Time Time with patient: Greater than 35 minutes - CODE STATUS was discussed, patient remains full code. Surrogate decision-maker REINA RAMOS. Multiple medical problems were addressed.More than 50% of the time spent coordinating care, discussing management plans with involved caregivers. Management plans discussed with involved personnels. Medical decision making was of moderate to high complexity, patient's has multiple severe comorbidities. Medications reviewed and adjusted accordingly: Yes
--- NOTE | 2016-12-31 13:36 | PDOC PROGRESS REPORT ---
Subjective Progress Note for:: 12/31/16 Subjective:: Patient said his doing fine. He still has abdominal pain and back pain. He denies nausea or vomiting. His appetite is poor. He has good urine output. Physical Exam Vital Signs: Temp Pulse Resp BP Pulse Ox 97.8 F 87 20 120/77 96 12/31/16 11:38 12/31/16 11:38 12/31/16 11:38 12/31/16 11:38 12/31/16 11:38 Intake & Output 12/30/16 12/31/16 01/01/17 06:59 06:59 06:59 Intake Total 1375 3745 480 Output Total 200 1925 Balance 1175 1820 480 Weight 79.3 kg Exam: General appearance: PRESENT: no acute distress, cooperative, well-developed, well-nourished Head exam: PRESENT: atraumatic, normocephalic Eye exam: PRESENT: conjunctiva pink, PERRLA. ABSENT: scleral icterus Neck exam: ABSENT: JVD Respiratory exam: PRESENT: Normal breath sounds. ABSENT: crackles, rales, rhonchi, unlabored, wheezes Cardiovascular exam: PRESENT: Regular rate rhythm -+S1, +S2. ABSENT: diastolic murmur, systolic murmur GI/Abdominal exam: PRESENT: normal bowel sounds, soft. Diffuse mild abdominal tenderness ABSENT: guarding, mass Extremities exam: ABSENT: No edema Neurological exam: PRESENT: alert, awake, oriented to person, place and time. Skin exam: PRESENT: dry, warm, Results Laboratory Results: 12/30/16 06:49 12/31/16 05:00 12/31/16 05:00 Sodium 138.1 Potassium 5.1 H Chloride 104 Carbon Dioxide 20 L Anion Gap 14 BUN 64 H D Creatinine 1.34 H Est GFR ( Amer) > 60 Est GFR (Non-Af Amer) 56 L Glucose 111 H Calcium 9.2 Phosphorus 4.9 H 12/30/16 06:49 NT-Pro-B Natriuret Pep 728 Impressions: Chest X-Ray 12/29/16 18:58 IMPRESSION: Right hilar fullness, probable lymphadenopathy, consider contrast CT to further characterize. Chest CT 12/30/16 00:00 IMPRESSION: Findings consistent with diffuse metastatic disease involving bulky mediastinal and right hilar lymphadenopathy as well as a few bilateral pulmonary nodules, multiple lesions in the liver, and multiple faint hypodensities in the thoracic spine. Assessment & Plan - Diagnosis (1) Acute kidney injury Is this a current diagnosis for this admission?: YesPlan: This is most likely secondary to multifactorial causes to include possible contrast nephropathy and possible acute tubular necrosis secondary to severe hypotension in the presence of blood pressure medications including lisinopril and furosemide. Patient is currently nonoliguric. There is no evidence of hydronephrosis on CT scan done on December 21. Currently the patient is responding to IV fluid hydration with improvement of kidney function slowly. Agree with holding lisinopril and furosemide. Decrease dose of Coreg. Avoid further nephrotoxic agents. Patient does not need any acute renal replacement therapy. Continue to monitor kidney function. Strict intake and output. We will decrease rate of IV fluids. (2) Hypotension Qualifiers: Hypotension type: unspecified hypotension type Qualified Code(s): I95.9 - Hypotension, unspecified Is this a current diagnosis for this admission?: YesPlan: Resolved. (3) Hyperkalemia Is this a current diagnosis for this admission?: YesPlan: Resolving. (4) Metabolic acidosis Is this a current diagnosis for this admission?: YesPlan: Improved with bicarbonate drip. Decrease drip rate to 100 mL per minute. (5) Hyperphosphatemia Is this a current diagnosis for this admission?: YesPlan: Mild due to a MAHAD. Follow levels. (6) Metastatic malignant neoplasm of unknown primary site Is this a current diagnosis for this admission?: YesPlan: Oncologist Dr. Gardner is following the patient. (7) Elevated LFTs Is this a current diagnosis for this admission?: Yes (8) Cardiomyopathy Qualifiers: Cardiomyopathy type: unspecified Qualified Code(s): I42.9 - Cardiomyopathy, unspecified Is this a current diagnosis for this admission?: YesPlan: Significant currently improved per cardiology. (9) Anemia Is this a current diagnosis for this admission?: Yes - Time Time with patient: 15-25 minutes
[2016-12-31] MEDS: CARVEDILOL 6.25 MG TABLET PO SCH (21:10)
[2017-01-01] MEDS: DEXTROSE 5%-WATER 1000 ML 1,000 ML with SODIUM BICARBONATE 100 MEQ IV PRN ×2 (05:01)
[2017-01-01 05:11] LABS: ALANINE AMINOTRANSFERASE 75 U/L (21-72); ALBUMIN 2.9 g/dL (3.5-5.0); ALKALINE PHOSPHATASE 427 U/L (38-126); ANION GAP 14 (5-19); ASPARTATE AMINO TRANSFERASE 333 U/L (17-59); BILIRUBIN,DIRECT 0.8 mg/dL (0.0-0.4); BILIRUBIN,TOTAL 1.1 mg/dL (0.2-1.3); CALCIUM 9.6 mg/dL (8.4-10.2); CARBON DIOXIDE 24 mmol/L (22-30); CHLORIDE 98 mmol/L (98-107); GLUCOSE 103 mg/dL (75-110); PHOSPHORUS 3.5 mg/dL (2.5-4.5); SODIUM 136.2 mmol/L (137-145); TOTAL PROTEIN 6.4 g/dL (6.3-8.2)
[2017-01-01 05:13] LABS: POTASSIUM 5.1 mmol/L (3.6-5.0)
[2017-01-01 05:20] LABS: BLOOD UREA NITROGEN 33 mg/dL (7-20)
[2017-01-01 05:22] LABS: MAGNESIUM 1.1 mg/dL (1.6-2.3)
[2017-01-01] MEDS ORDERED: MAGNESIUM SULFATE/D5W 1 GM/100 ML RTUPB IV ONE ×2 (06:23→14:00)
[2017-01-01] MEDS: OXYCODONE HCL IR 5 MG TABLET PO PRN ×3 (06:27→21:20)
[2017-01-01] MEDS: LORAZEPAM 1 MG TABLET PO PRN ×3 (06:27→21:20)
[2017-01-01] MEDS: MAGNESIUM SULFATE/D5W 1 GM/100 ML RTUPB IV SCH ×3 (07:42→10:00)
[2017-01-01] MEDS: HEPARIN SOD (PORCINE) 5,000 UNIT/ML 1 ML SYRINGE SUBCUT SCH ×2 (09:55→21:14)
[2017-01-01] MEDS: THIAMINE HCL 100 MG TABLET PO SCH (10:00)
[2017-01-01] MEDS: MULTIVITAMIN TABLET PO SCH (10:00)
[2017-01-01] MEDS: CARVEDILOL 6.25 MG TABLET PO SCH (10:00)
[2017-01-01] MEDS: FOLIC ACID 1 MG TABLET PO SCH (10:00)
[2017-01-01] MEDS: ASPIRIN 81 MG TABLET, ENT COATED PO SCH (10:06)
--- NOTE | 2017-01-01 10:49 | PDOC PROGRESS REPORT ---
Subjective Progress Note for:: 01/01/17 Subjective:: No acute events overnight Physical Exam Vital Signs: Temp Pulse Resp BP Pulse Ox 98.0 F 102 H 16 127/77 H 92 01/01/17 08:01 01/01/17 08:01 01/01/17 08:01 01/01/17 08:01 01/01/17 08:01 Intake & Output 12/31/16 01/01/17 01/02/17 06:59 06:59 06:59 Intake Total 3745 3257 Output Total 1925 1275 Balance 1820 1982 Weight 79.3 kg General appearance: PRESENT: no acute distress, well-developed, well-nourished Head exam: PRESENT: atraumatic, normocephalic Eye exam: PRESENT: conjunctiva pink, EOMI, PERRLA. ABSENT: scleral icterus Ear exam: PRESENT: normal external ear exam Mouth exam: PRESENT: moist, tongue midline Neck exam: ABSENT: carotid bruit, JVD, lymphadenopathy, thyromegaly Respiratory exam: PRESENT: clear to auscultation jcarlos. ABSENT: rales, rhonchi, wheezes Cardiovascular exam: PRESENT: RRR. ABSENT: diastolic murmur, rubs, systolic murmur Pulses: PRESENT: normal dorsalis pedis pul Vascular exam: PRESENT: normal capillary refill GI/Abdominal exam: PRESENT: normal bowel sounds, soft. ABSENT: distended, guarding, mass, organolmegaly, rebound, tenderness Rectal exam: PRESENT: deferred Extremities exam: PRESENT: full ROM. ABSENT: calf tenderness, clubbing, pedal edema Neurological exam: PRESENT: alert, awake, oriented to person, oriented to place , oriented to time, oriented to situation, CN II-XII grossly intact. ABSENT: motor sensory deficit Psychiatric exam: PRESENT: appropriate affect, normal mood. ABSENT: homicidal ideation, suicidal ideation Skin exam: PRESENT: dry, intact, warm. ABSENT: cyanosis, rash Results Laboratory Results: 12/30/16 06:49 01/01/17 03:47 01/01/17 03:47 Sodium 136.2 L Potassium 5.1 H Chloride 98 Carbon Dioxide 24 Anion Gap 14 BUN 33 H D Creatinine 0.90 Est GFR ( Amer) > 60 Est GFR (Non-Af Amer) > 60 Glucose 103 Calcium 9.6 Phosphorus 3.5 Magnesium 1.1 L* Total Bilirubin 1.1 AST 333 H ALT 75 H Alkaline Phosphatase 427 H Total Protein 6.4 Albumin 2.9 L 12/30/16 06:49 NT-Pro-B Natriuret Pep 728 Impressions: Chest X-Ray 12/29/16 18:58 IMPRESSION: Right hilar fullness, probable lymphadenopathy, consider contrast CT to further characterize. Chest CT 12/30/16 00:00 IMPRESSION: Findings consistent with diffuse metastatic disease involving bulky mediastinal and right hilar lymphadenopathy as well as a few bilateral pulmonary nodules, multiple lesions in the liver, and multiple faint hypodensities in the thoracic spine. Assessment & Plan - Diagnosis (1) Metastatic malignant neoplasm of unknown primary site Is this a current diagnosis for this admission?: YesPlan: Liver biopsy planned tomorrow, labs are appropriate for procedure, blood thinners have been held for several days now, nothing by mouth after midnight. - Time Time Spent with patient: 15-24 minutes Critical Time spent with patient: 15-24 minutes
--- NOTE | 2017-01-01 11:57 | PDOC PROGRESS REPORT ---
Subjective Progress Note for:: 01/01/17 Subjective:: The patient was seen earlier today on rounds. The patient complains of full body, global pain but does admit that is better in comparison to yesterday The patient denies any nausea, vomiting, diarrhea, shortness of breath, dizziness, chest pain, heart palpitations, fevers, or chills. The patient has remained afebrile. Blood pressures have been in a good range. When prompted the patient voices no other concerns at this time. Review of systems: The rest of the review of systems is negative. Physical Exam Vital Signs: Temp Pulse Resp BP Pulse Ox 98.0 F 102 H 16 127/77 H 92 01/01/17 08:01 01/01/17 08:01 01/01/17 08:01 01/01/17 08:01 01/01/17 08:01 Intake & Output 12/30/16 12/31/16 01/01/17 23:59 23:59 23:59 Intake Total 3690 3611 1076 Output Total 1125 1300 975 Balance 2565 2311 101 Weight 79.3 kg General appearance: PRESENT: no acute distress, cooperative, well-developed, well-nourished Head exam: PRESENT: atraumatic, normocephalic Eye exam: PRESENT: conjunctiva pink, EOMI, PERRLA. ABSENT: scleral icterus Ear exam: PRESENT: normal external ear exam Mouth exam: PRESENT: moist, tongue midline Neck exam: ABSENT: carotid bruit, JVD, lymphadenopathy, thyromegaly Respiratory exam: PRESENT: clear to auscultation jcarlos, symmetrical, unlabored. ABSENT: rales, rhonchi, tachypnea, wheezes Cardiovascular exam: PRESENT: RRR. ABSENT: diastolic murmur, rubs, systolic murmur Pulses: PRESENT: normal dorsalis pedis pul Vascular exam: PRESENT: normal capillary refill GI/Abdominal exam: PRESENT: normal bowel sounds, soft. ABSENT: distended, guarding, mass, organolmegaly, rebound, tenderness Rectal exam: PRESENT: deferred Extremities exam: PRESENT: full ROM. ABSENT: calf tenderness, clubbing, pedal edema Neurological exam: PRESENT: alert, awake, oriented to person, oriented to place , oriented to time, oriented to situation, CN II-XII grossly intact. ABSENT: motor sensory deficit Psychiatric exam: PRESENT: agitated, appropriate affect, normal mood. ABSENT: homicidal ideation, suicidal ideation Skin exam: PRESENT: dry, intact, warm. ABSENT: cyanosis, rash Results Laboratory Results: 12/30/16 06:49 01/01/17 03:47 01/01/17 03:47 Sodium 136.2 L Potassium 5.1 H Chloride 98 Carbon Dioxide 24 Anion Gap 14 BUN 33 H D Creatinine 0.90 Est GFR ( Amer) > 60 Est GFR (Non-Af Amer) > 60 Glucose 103 Calcium 9.6 Phosphorus 3.5 Magnesium 1.1 L* Total Bilirubin 1.1 AST 333 H ALT 75 H Alkaline Phosphatase 427 H Total Protein 6.4 Albumin 2.9 L 12/30/16 06:49 NT-Pro-B Natriuret Pep 728 Impressions: Chest X-Ray 12/29/16 18:58 IMPRESSION: Right hilar fullness, probable lymphadenopathy, consider contrast CT to further characterize. Chest CT 12/30/16 00:00 IMPRESSION: Findings consistent with diffuse metastatic disease involving bulky mediastinal and right hilar lymphadenopathy as well as a few bilateral pulmonary nodules, multiple lesions in the liver, and multiple faint hypodensities in the thoracic spine. Assessment & Plan - Diagnosis (1) Cardiomyopathy Qualifiers: Cardiomyopathy type: unspecified Qualified Code(s): I42.9 - Cardiomyopathy, unspecified Is this a current diagnosis for this admission?: YesPlan: It appears the patient has regained his EF. Do appreciate cardiology's input with this. (2) ARF (acute renal failure) Qualifiers: Acute renal failure type: unspecified Qualified Code(s): N17.9 - Acute kidney failure, unspecified Is this a current diagnosis for this admission?: YesPlan: Do appreciate nephrology's input with this. Creatinine has normalized. (3) Hypomagnesemia Is this a current diagnosis for this admission?: YesPlan: Will replete (4) Hyperkalemia Is this a current diagnosis for this admission?: YesPlan: Secondary to #1 as well as ARDEN inhibitor. Overall has improved with Kayexalate and calcium gluconate. (5) Hypotension Qualifiers: Hypotension type: unspecified hypotension type Qualified Code(s): I95.9 - Hypotension, unspecified Is this a current diagnosis for this admission?: YesPlan: This has improved with hydration and holding blood pressure medications. (6) Metabolic acidosis Is this a current diagnosis for this admission?: YesPlan: To appreciate nephrology input. (7) Metastatic malignant neoplasm of unknown primary site Is this a current diagnosis for this admission?: YesPlan: The patients have CT-guided biopsy on Monday. Do appreciate Dr. Gardner's input with this. (8) Alcohol dependency Qualifiers: Substance use status: uncomplicated Qualified Code(s): F10.20 - Alcohol dependence, uncomplicated Is this a current diagnosis for this admission?: YesPlan: Will supplement B vitamins. (9) Thyroid mass Is this a current diagnosis for this admission?: Yes (10) Tobacco use disorder Is this a current diagnosis for this admission?: YesPlan: When necessary nicotine patch - Time Time Spent with patient: 25-34 minutes Medications reviewed and adjusted accordingly: Yes Anticipated discharge: Home Within: within 48 hours Disposition: The patient is a full code. Pending patient's symptomatology and diagnostic findings will reevaluate in the a.m.
[2017-01-01] MEDS: BENZOCAINE/MENTHOL SORE THROAT LOZENGE BUCCAL PRN (12:49)
--- NOTE | 2017-01-01 13:46 | PDOC PROGRESS REPORT ---
Subjective Progress Note for:: 01/01/17 Subjective:: Patient seems to be doing better with gradual improvement. Pt is denying any chest arm or neck discomfort. Patient denying any PND, orthopnea. Patient denied any sustained palpitations, dizziness, syncope, near syncope. Patient denying any fever chills. Patient denying any other significant discomfort. Patient is maintaining sinus rhythm. Lab work reviewed. Potassium still high at 5.1 but BUN and creatinine has significantly improved. Patient has no specific complaints. Abdominal pain has improved. Review of systems: Rest review of systems negative. Medications: Medications have been reviewed. Physical Exam Vital Signs: Temp Pulse Resp BP Pulse Ox 98.0 F 102 H 16 127/77 H 92 01/01/17 08:01 01/01/17 08:01 01/01/17 08:01 01/01/17 08:01 01/01/17 08:01 Intake & Output 12/31/16 01/01/17 01/02/17 06:59 06:59 06:59 Intake Total 3745 3257 Output Total 1925 1275 Balance 1820 1982 Weight 79.3 kg Exam: GENERAL: well-nourished and in no acute distress. Alert and oriented x3 HEAD: Atraumatic, normocephalic. EYES: Pupils equal round and reactive to light, extraocular movements intact, sclera anicteric, conjunctiva are normal. ENT: TMs normal, nares patent, oropharynx clear without exudates. Moist mucous membranes. No oral ulcerations or bleeding gums noted NECK: supple without lymphadenopathy. Trachea is central. No cervical or axillary lymphadenopathy noted. Carotids are 2+, JVD WNL LUNGS: Respiration seems nonlabored, no significant accessory muscle action noted. Breath sounds clear to auscultation bilaterally and equal noted. No wheezes rales or rhonchi noted. No significant dullness noted on percussion. CHEST: Palpation of the chest wall shows no significant chest wall tenderness. No other significant abnormalities noted. 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 ABDOMEN: Soft, no significant tenderness appreciated, normoactive bowel sounds. No guarding, no rebound. No rigidity noted . No masses appreciated. Liver is noted to be enlarged. EXTREMITIES: Pedal pulses are 1-2+, no calf tenderness noted. No clubbing or cyanosis.trace pedal edema noted NEUROLOGICAL: Focused neurological exam showed no significant neurologic deficit. Normal speech, no focal weakness appreciated. PSYCH: Normal mood, normal affect. Judgment and insight within normal limits. SKIN: No significant ecchymosis, rash, ulcerations or signs of pruritus noted. MUSCULOSKELETAL EXAM: No significant joint swelling noted. Results Laboratory Results: 12/30/16 06:49 01/01/17 03:47 01/01/17 03:47 Sodium 136.2 L Potassium 5.1 H Chloride 98 Carbon Dioxide 24 Anion Gap 14 BUN 33 H D Creatinine 0.90 Est GFR ( Amer) > 60 Est GFR (Non-Af Amer) > 60 Glucose 103 Calcium 9.6 Phosphorus 3.5 Magnesium 1.1 L* Total Bilirubin 1.1 AST 333 H ALT 75 H Alkaline Phosphatase 427 H Total Protein 6.4 Albumin 2.9 L 12/30/16 06:49 NT-Pro-B Natriuret Pep 728 Impressions: Chest X-Ray 12/29/16 18:58 IMPRESSION: Right hilar fullness, probable lymphadenopathy, consider contrast CT to further characterize. Chest CT 12/30/16 00:00 IMPRESSION: Findings consistent with diffuse metastatic disease involving bulky mediastinal and right hilar lymphadenopathy as well as a few bilateral pulmonary nodules, multiple lesions in the liver, and multiple faint hypodensities in the thoracic spine. Assessment & Plan - Diagnosis (1) Cardiomyopathy Qualifiers: Cardiomyopathy type: unspecified Qualified Code(s): I42.9 - Cardiomyopathy, unspecified Is this a current diagnosis for this admission?: Yes (2) ARF (acute renal failure) Qualifiers: Acute renal failure type: unspecified Qualified Code(s): N17.9 - Acute kidney failure, unspecified Is this a current diagnosis for this admission?: Yes (3) Abdominal pain, generalized Is this a current diagnosis for this admission?: Yes (4) Hyperkalemia Is this a current diagnosis for this admission?: Yes (5) Alcohol dependency Qualifiers: Substance use status: uncomplicated Qualified Code(s): F10.20 - Alcohol dependence, uncomplicated Is this a current diagnosis for this admission?: Yes (6) Tobacco use disorder Is this a current diagnosis for this admission?: Yes (7) Metastatic malignant neoplasm of unknown primary site Is this a current diagnosis for this admission?: Yes (8) Elevated LFTs Is this a current diagnosis for this admission?: Yes - Notes Notes: Cardiomyopathy: Most recent 2-D echo shows marked improvement in LVEF. Currently ARDEN inhibitor contraindicated because of hypotension, will increase carvedilol. Consider hydralazine nitrate combination or reinstituting ARDEN inhibitor/ARB if okayed by nephrology. Acute renal failure: Exact etiology not clear but renal functions improved with hydration therefore suggest relative hypovolemia as cause of it. Hyperkalemia: Improving. Depression today is 5.1. History of alcohol dependency: Currently stable. No outward sign of withdrawal. Tobacco abuse disorder: Continue nicotine patch. Metastasis neoplasm with liver metastases and abnormal LFT: Patient scheduled for liver biopsy. Plan to increase carvedilol further. EKG tomorrow for reevaluation for any changes. - Time Time with patient: Greater than 35 minutes - CODE STATUS was discussed, patient remains full code. Surrogate decision-maker unchanged. Multiple medical problems were addressed.More than 50% of the time spent coordinating care, discussing management plans with involved caregivers. Management plans discussed with involved personnels. Medical decision making was of moderate to high complexity, patient's has multiple severe comorbidities.
--- NOTE | 2017-01-01 14:59 | PDOC PROGRESS REPORT ---
Subjective Progress Note for:: 01/01/17 Subjective:: No new complaints today. He still has poor appetite. He does make appropriate amount of urine output. Continues to have the same lower abdominal and back pain. Physical Exam Vital Signs: Temp Pulse Resp BP Pulse Ox 98.0 F 102 H 16 127/77 H 92 01/01/17 08:01 01/01/17 08:01 01/01/17 08:01 01/01/17 08:01 01/01/17 08:01 Intake & Output 12/31/16 01/01/17 01/02/17 06:59 06:59 06:59 Intake Total 3745 3257 Output Total 1925 1275 Balance 1820 1982 Weight 79.3 kg Exam: General appearance: PRESENT: no acute distress, cooperative, well-developed, well-nourished Head exam: PRESENT: atraumatic, normocephalic Eye exam: PRESENT: conjunctiva pink, PERRLA. ABSENT: scleral icterus Neck exam: ABSENT: JVD Respiratory exam: PRESENT: Diminished breath sounds. ABSENT: crackles, rales, rhonchi, unlabored, wheezes Cardiovascular exam: PRESENT: Regular rate rhythm -+S1, +S2. ABSENT: diastolic murmur, systolic murmur GI/Abdominal exam: PRESENT: normal bowel sounds, soft. Mild right lower quadrant tenderness ABSENT: guarding, mass Extremities exam: ABSENT: No edema Neurological exam: PRESENT: alert, awake, oriented to person, place and time. Skin exam: PRESENT: dry, warm, Results Laboratory Results: 12/30/16 06:49 01/01/17 03:47 01/01/17 03:47 Sodium 136.2 L Potassium 5.1 H Chloride 98 Carbon Dioxide 24 Anion Gap 14 BUN 33 H D Creatinine 0.90 Est GFR ( Amer) > 60 Est GFR (Non-Af Amer) > 60 Glucose 103 Calcium 9.6 Phosphorus 3.5 Magnesium 1.1 L* Total Bilirubin 1.1 AST 333 H ALT 75 H Alkaline Phosphatase 427 H Total Protein 6.4 Albumin 2.9 L 12/30/16 06:49 NT-Pro-B Natriuret Pep 728 Impressions: Chest X-Ray 12/29/16 18:58 IMPRESSION: Right hilar fullness, probable lymphadenopathy, consider contrast CT to further characterize. Chest CT 12/30/16 00:00 IMPRESSION: Findings consistent with diffuse metastatic disease involving bulky mediastinal and right hilar lymphadenopathy as well as a few bilateral pulmonary nodules, multiple lesions in the liver, and multiple faint hypodensities in the thoracic spine. Assessment & Plan - Diagnosis (1) Acute kidney injury Is this a current diagnosis for this admission?: YesPlan: Resolved. This is most likely secondary to multifactorial causes to include possible contrast nephropathy and possible acute tubular necrosis secondary to severe hypotension in the presence of blood pressure medications including lisinopril and furosemide. Patient is currently nonoliguric. There is no evidence of hydronephrosis on CT scan done on December 21. I will change the IV fluid to normal saline for maintenance. May restart ARDEN inhibitor if needed. (2) Hypotension Qualifiers: Hypotension type: unspecified hypotension type Qualified Code(s): I95.9 - Hypotension, unspecified Is this a current diagnosis for this admission?: YesPlan: Resolved. (3) Hyperkalemia Is this a current diagnosis for this admission?: YesPlan: Borderline and mild. (4) Metabolic acidosis Is this a current diagnosis for this admission?: YesPlan: Resolved. Discontinue bicarbonate drip and replace with normal saline. (5) Hyperphosphatemia Is this a current diagnosis for this admission?: YesPlan: Resolved with resolution of acute kidney injury. (6) Metastatic malignant neoplasm of unknown primary site Is this a current diagnosis for this admission?: YesPlan: Oncologist Dr. Gardner is following the patient. (7) Elevated LFTs Is this a current diagnosis for this admission?: Yes (8) Cardiomyopathy Qualifiers: Cardiomyopathy type: unspecified Qualified Code(s): I42.9 - Cardiomyopathy, unspecified Is this a current diagnosis for this admission?: YesPlan: Significantly improved per cardiology. (9) Anemia Is this a current diagnosis for this admission?: Yes - Notes Notes: We'll sign off for now. Please don't hesitate to call me if I can be of further help. - Time Time with patient: 15-25 minutes
[2017-01-01] MEDS: NORMAL SALINE 1000 ML 1,000 ML IV PRN (15:39)
[2017-01-01] MEDS: CARVEDILOL 12.5 MG TABLET PO SCH (21:14)
[2017-01-02 05:25] LABS: ANION GAP 13 (5-19); BLOOD UREA NITROGEN 24 mg/dL (7-20); CALCIUM 10.7 mg/dL (8.4-10.2); CARBON DIOXIDE 25 mmol/L (22-30); CHLORIDE 99 mmol/L (98-107); CREATININE RESULT 0.95 mg/dL (0.52-1.25); GLUCOSE 70 mg/dL (75-110); MAGNESIUM 1.7 mg/dL (1.6-2.3); POTASSIUM 5.3 mmol/L (3.6-5.0); SODIUM 136.7 mmol/L (137-145)
[2017-01-02 09:05] LABS: PROTHROMBIN TIME 13.5 SEC (11.4-15.4)
--- NOTE | 2017-01-02 10:44 | EKG REPORT ---
SEVERITY:- BORDERLINE ECG - SINUS TACHYCARDIA PROBABLE LEFT ATRIAL ABNORMALITY : Confirmed by: Italo Luna 02-Jan-2017 10:43:21
[2017-01-02] MEDS ORDERED: MIDAZOLAM 2 MG/2 ML INJ ONE (11:39)
[2017-01-02] MEDS ORDERED: FENTANYL CITRATE INJ/PF 100 MCG/2 ML AMPUL ONE (11:39)
[2017-01-02] MEDS: CARVEDILOL 12.5 MG TABLET PO SCH ×2 (11:45→22:20)
[2017-01-02] MEDS: HEPARIN SOD (PORCINE) 5,000 UNIT/ML 1 ML SYRINGE SUBCUT SCH ×2 (11:45→22:17)
[2017-01-02] MEDS: THIAMINE HCL 100 MG TABLET PO SCH (11:45)
[2017-01-02] MEDS: MULTIVITAMIN TABLET PO SCH (11:45)
[2017-01-02] MEDS: FOLIC ACID 1 MG TABLET PO SCH (11:45)
[2017-01-02] MEDS: ASPIRIN 81 MG TABLET, ENT COATED PO SCH (11:45)
--- NOTE | 2017-01-02 13:09 | PDOC PROGRESS REPORT ---
Subjective Progress Note for:: 01/02/17 Subjective:: The patient was seen earlier today on rounds. The patient complains of full body, global pain but does admit that is better in comparison to yesterday The patient denies any nausea, vomiting, diarrhea, shortness of breath, dizziness, chest pain, heart palpitations, fevers, or chills. The patient has remained afebrile. Blood pressures have been in a good range. When prompted the patient voices no other concerns at this time. Review of systems: The rest of the review of systems is negative. Physical Exam Vital Signs: Temp Pulse Resp BP Pulse Ox 98.8 F 101 H 20 123/78 93 01/02/17 07:31 01/02/17 07:31 01/02/17 07:31 01/02/17 07:31 01/02/17 07:31 Intake & Output 12/31/16 01/01/17 01/02/17 23:59 23:59 23:59 Intake Total 3611 2819 419 Output Total 1300 1775 725 Balance 2311 1044 -306 Weight 79.3 kg 78 kg General appearance: PRESENT: no acute distress, well-developed, well-nourished Head exam: PRESENT: atraumatic, normocephalic Eye exam: PRESENT: conjunctiva pink, EOMI, PERRLA. ABSENT: scleral icterus Ear exam: PRESENT: normal external ear exam Mouth exam: PRESENT: moist, tongue midline Neck exam: ABSENT: carotid bruit, JVD, lymphadenopathy, thyromegaly Respiratory exam: PRESENT: clear to auscultation jcarlos. ABSENT: rales, rhonchi, wheezes Cardiovascular exam: PRESENT: RRR. ABSENT: diastolic murmur, rubs, systolic murmur Pulses: PRESENT: normal dorsalis pedis pul Vascular exam: PRESENT: normal capillary refill GI/Abdominal exam: PRESENT: normal bowel sounds, soft. ABSENT: distended, guarding, mass, organolmegaly, rebound, tenderness Rectal exam: PRESENT: deferred Extremities exam: PRESENT: full ROM. ABSENT: calf tenderness, clubbing, pedal edema Neurological exam: PRESENT: alert, awake, oriented to person, oriented to place , oriented to time, oriented to situation, CN II-XII grossly intact. ABSENT: motor sensory deficit Psychiatric exam: PRESENT: appropriate affect, normal mood. ABSENT: homicidal ideation, suicidal ideation Skin exam: PRESENT: dry, intact, warm. ABSENT: cyanosis, rash Results Laboratory Results: 12/30/16 06:49 01/02/17 03:59 01/02/17 03:59 Sodium 136.7 L Potassium 5.3 H Chloride 99 Carbon Dioxide 25 Anion Gap 13 BUN 24 H Creatinine 0.95 Est GFR ( Amer) > 60 Est GFR (Non-Af Amer) > 60 Glucose 70 L Calcium 10.7 H Magnesium 1.7 12/30/16 06:49 NT-Pro-B Natriuret Pep 728 Impressions: Chest X-Ray 12/29/16 18:58 IMPRESSION: Right hilar fullness, probable lymphadenopathy, consider contrast CT to further characterize. Chest CT 12/30/16 00:00 IMPRESSION: Findings consistent with diffuse metastatic disease involving bulky mediastinal and right hilar lymphadenopathy as well as a few bilateral pulmonary nodules, multiple lesions in the liver, and multiple faint hypodensities in the thoracic spine. Assessment & Plan - Diagnosis (1) Cardiomyopathy Qualifiers: Cardiomyopathy type: unspecified Qualified Code(s): I42.9 - Cardiomyopathy, unspecified Is this a current diagnosis for this admission?: YesPlan: It appears the patient has regained his EF. Do appreciate cardiology's input with this. (2) ARF (acute renal failure) Qualifiers: Acute renal failure type: unspecified Qualified Code(s): N17.9 - Acute kidney failure, unspecified Is this a current diagnosis for this admission?: YesPlan: Do appreciate nephrology's input with this. Creatinine has normalized. (3) Hypomagnesemia Is this a current diagnosis for this admission?: YesPlan: Will replete (4) Hyperkalemia Is this a current diagnosis for this admission?: YesPlan: Secondary to #1 as well as ARDEN inhibitor. Overall has improved with Kayexalate and calcium gluconate. (5) Hypotension Qualifiers: Hypotension type: unspecified hypotension type Qualified Code(s): I95.9 - Hypotension, unspecified Is this a current diagnosis for this admission?: YesPlan: This has improved with hydration and holding blood pressure medications. (6) Metabolic acidosis Is this a current diagnosis for this admission?: YesPlan: To appreciate nephrology input. (7) Metastatic malignant neoplasm of unknown primary site Is this a current diagnosis for this admission?: YesPlan: The patients have CT-guided biopsy on Monday. Do appreciate Dr. Gardner's input with this. (8) Alcohol dependency Qualifiers: Substance use status: uncomplicated Qualified Code(s): F10.20 - Alcohol dependence, uncomplicated Is this a current diagnosis for this admission?: YesPlan: Will supplement B vitamins. (9) Thyroid mass Is this a current diagnosis for this admission?: Yes (10) Tobacco use disorder Is this a current diagnosis for this admission?: YesPlan: When necessary nicotine patch - Time Time Spent with patient: 25-34 minutes Medications reviewed and adjusted accordingly: Yes Anticipated discharge: Home Within: within 24 hours
[2017-01-02] MEDS: ACETAMINOPHEN 325 MG TABLET PO PRN (18:19)
--- NOTE | 2017-01-02 19:45 | PDOC PROGRESS REPORT ---
Subjective Progress Note for:: 01/02/17 Subjective:: Patient seen earlier this morning on rounds. Patient seems to be doing better with gradual improvement. Pt is denying any chest arm or neck discomfort. Patient denying any PND, orthopnea. Patient denied any sustained palpitations, dizziness, syncope, near syncope. Patient denying any fever chills. Patient denying any other significant discomfort. Patient is maintaining sinus rhythm. 2-D echocardiogram results were discussed. Patient did have a 12-lead EKG today which showed no acute ST-T wave changes. Lab work showed improving renal function but potassium still high. Patient scheduled to undergo liver biopsy. Review of systems: Rest review of systems negative. Medications: Medications have been reviewed. Physical Exam Vital Signs: Temp Pulse Resp BP Pulse Ox 99.0 F 107 H 12 122/77 93 01/02/17 16:13 01/02/17 16:13 01/02/17 16:13 01/02/17 16:13 01/02/17 16:13 Intake & Output 01/01/17 01/02/17 01/03/17 06:59 06:59 06:59 Intake Total 3257 2162 1580 Output Total 1275 1525 Balance 9841 096 6964 Weight 78 kg Exam: GENERAL: well-nourished and in no acute distress. Alert and oriented x3 HEAD: Atraumatic, normocephalic. EYES: Pupils equal round and reactive to light, extraocular movements intact, sclera anicteric, conjunctiva are normal. ENT: TMs normal, nares patent, oropharynx clear without exudates. Moist mucous membranes. No oral ulcerations or bleeding gums noted NECK: supple without lymphadenopathy. Trachea is central. No cervical or axillary lymphadenopathy noted. Carotids are 2+, JVD WNL LUNGS: Respiration seems nonlabored, no significant accessory muscle action noted. Breath sounds clear to auscultation bilaterally and equal noted. No wheezes rales or rhonchi noted. No significant dullness noted on percussion. CHEST: Palpation of the chest wall shows no significant chest wall tenderness. No other significant abnormalities noted. 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 ABDOMEN: Soft, no significant tenderness appreciated, normoactive bowel sounds. No guarding, no rebound. No rigidity noted . No masses appreciated. Liver enlargement noted. EXTREMITIES: Pedal pulses are 1-2+, no calf tenderness noted. No clubbing or cyanosis.trace to 1+ pedal edema noted NEUROLOGICAL: Focused neurological exam showed no significant neurologic deficit. Normal speech, no focal weakness appreciated. PSYCH: Normal mood, normal affect. Judgment and insight within normal limits. SKIN: No significant ecchymosis, rash, ulcerations or signs of pruritus noted. MUSCULOSKELETAL EXAM: No significant joint swelling noted. Results Laboratory Results: 12/30/16 06:49 01/02/17 03:59 01/02/17 03:59 Sodium 136.7 L Potassium 5.3 H Chloride 99 Carbon Dioxide 25 Anion Gap 13 BUN 24 H Creatinine 0.95 Est GFR ( Amer) > 60 Est GFR (Non-Af Amer) > 60 Glucose 70 L Calcium 10.7 H Magnesium 1.7 12/30/16 06:49 NT-Pro-B Natriuret Pep 728 Impressions: Chest X-Ray 12/29/16 18:58 IMPRESSION: Right hilar fullness, probable lymphadenopathy, consider contrast CT to further characterize. Chest CT 12/30/16 00:00 IMPRESSION: Findings consistent with diffuse metastatic disease involving bulky mediastinal and right hilar lymphadenopathy as well as a few bilateral pulmonary nodules, multiple lesions in the liver, and multiple faint hypodensities in the thoracic spine. Guidance Needle Placement CT 01/02/17 00:00 IMPRESSION: CT GUIDED RIGHT LOBE LIVER BIOPSY PERFORMED ABOVE. PATHOLOGY PENDING. NO IMMEDIATE COMPLICATIONS. Liver Biopsy CT 01/02/17 07:00 IMPRESSION: CT GUIDED RIGHT LOBE LIVER BIOPSY PERFORMED ABOVE. PATHOLOGY PENDING. NO IMMEDIATE COMPLICATIONS. Assessment & Plan - Diagnosis (1) Cardiomyopathy Qualifiers: Cardiomyopathy type: unspecified Qualified Code(s): I42.9 - Cardiomyopathy, unspecified Is this a current diagnosis for this admission?: Yes (2) ARF (acute renal failure) Qualifiers: Acute renal failure type: unspecified Qualified Code(s): N17.9 - Acute kidney failure, unspecified Is this a current diagnosis for this admission?: Yes (3) Abdominal pain, generalized Is this a current diagnosis for this admission?: Yes (4) Hyperkalemia Is this a current diagnosis for this admission?: Yes (5) Alcohol dependency Qualifiers: Substance use status: uncomplicated Qualified Code(s): F10.20 - Alcohol dependence, uncomplicated Is this a current diagnosis for this admission?: Yes (6) Tobacco use disorder Is this a current diagnosis for this admission?: Yes (7) Metastatic malignant neoplasm of unknown primary site Is this a current diagnosis for this admission?: Yes (8) Elevated LFTs Is this a current diagnosis for this admission?: Yes - Notes Notes: Cardiomyopathy: Had increased carvedilol dose yesterday. He seems to be tolerating that. Potassium still high therefore cannot start patient on ARDEN inhibitor yet. Will seek guidance from draw machine operator. 2-D echo showed improvement in LVEF. Acute renal failure: This has improved. IV fluids has been reduced to 60 mL per hour. Hyperkalemia: Persistent. Metastasis tumor: Patient having liver biopsy. Abnormal LFT: Stable. Will follow tomorrow and if patient remains stable will consider signing off. Patient can follow-up with me if he chooses. - Time Time with patient: 15-25 minutes - CODE STATUS was discussed, patient remains full code. Surrogate decision-maker unchanged. Multiple medical problems were addressed.More than 50% of the time spent coordinating care, discussing management plans with involved caregivers. Management plans discussed with involved personnels. Medical decision making was of moderate to high complexity , patient's has multiple severe comorbidities. Medications reviewed and adjusted accordingly: Yes
[2017-01-02] MEDS: LORAZEPAM 1 MG TABLET PO PRN (20:40)
[2017-01-02] MEDS: OXYCODONE HCL IR 5 MG TABLET PO PRN (20:40)
[2017-01-02] MEDS: BENZOCAINE/MENTHOL SORE THROAT LOZENGE BUCCAL PRN (22:57)
[2017-01-03] MEDS: NORMAL SALINE 1000 ML 1,000 ML IV PRN (05:20)
[2017-01-03] MEDS: HEPARIN SOD (PORCINE) 5,000 UNIT/ML 1 ML SYRINGE SUBCUT SCH ×2 (10:35→22:07)
[2017-01-03] MEDS: FOLIC ACID 1 MG TABLET PO SCH (10:36)
[2017-01-03] MEDS: CARVEDILOL 12.5 MG TABLET PO SCH ×2 (10:36→22:20)
[2017-01-03] MEDS: THIAMINE HCL 100 MG TABLET PO SCH (10:36)
[2017-01-03] MEDS: MULTIVITAMIN TABLET PO SCH (10:36)
[2017-01-03] MEDS: ASPIRIN 81 MG TABLET, ENT COATED PO SCH (10:36)
--- NOTE | 2017-01-03 14:56 | PDOC PROGRESS REPORT ---
Subjective Progress Note for:: 01/03/17 Subjective:: The patient was seen earlier today on rounds. The patient complains of full body, global pain but does admit that is better in comparison to yesterday. The patient denies any nausea, vomiting, diarrhea, shortness of breath, dizziness, chest pain, heart palpitations, fevers, or chills. The patient has remained afebrile. Blood pressures have been in a good range. The patient states there is no way he can go home. The patient states that he is unable to ambulate or able to bend over. However the patient has been ambulating to the bathroom. I discussed this in detail with the patient who states that he has no one at home to help him. The patient does have a cousin that may can help him intermittently however he does not have any people in his life that can help him at this time. Review of systems: The rest of the review of systems is negative. Brief history: The patient presented to the emergency department with noted fatigue. The patient was found to be in acute renal failure with significant hyperkalemia. She was recently diagnosed with liver metastases from an unknown primary. She was supposed to have a PET scan biopsy done outpatient however he did not make it to the appointment because he had to come to the hospital first. During his stay the patient has been seen by nephrology and oncology. Palliative care has been consult did as well to help the patient set goals of care. The patient underwent CT-guided biopsy on 01/02/2017 with pathology still pending. The patient's renal function and metabolic acidosis have resolved the patient's creatinine is now at baseline. She is cleared from a medical perspective however the patient states that his pain is intractable and he is immobile. At this time physical therapy has been consult as well as social work. Physical Exam Vital Signs: Temp Pulse Resp BP Pulse Ox 98.6 F 109 H 19 122/74 94 01/03/17 11:51 01/03/17 11:51 01/03/17 11:51 01/03/17 11:51 01/03/17 11:51 Intake & Output 01/01/17 01/02/17 01/03/17 23:59 23:59 23:59 Intake Total 2819 1999 1567 Output Total 1775 725 0 Balance 1044 1274 1567 Weight 78 kg 77.3 kg General appearance: PRESENT: no acute distress, well-developed, well-nourished Head exam: PRESENT: atraumatic, normocephalic Eye exam: PRESENT: conjunctiva pink, EOMI, PERRLA. ABSENT: scleral icterus Ear exam: PRESENT: normal external ear exam Mouth exam: PRESENT: moist, tongue midline Neck exam: ABSENT: carotid bruit, JVD, lymphadenopathy, thyromegaly Respiratory exam: PRESENT: clear to auscultation jcarlos. ABSENT: rales, rhonchi, wheezes Cardiovascular exam: PRESENT: RRR. ABSENT: diastolic murmur, rubs, systolic murmur Pulses: PRESENT: normal dorsalis pedis pul Vascular exam: PRESENT: normal capillary refill GI/Abdominal exam: PRESENT: normal bowel sounds, soft. ABSENT: distended, guarding, mass, organolmegaly, rebound, tenderness Rectal exam: PRESENT: deferred Extremities exam: PRESENT: full ROM. ABSENT: calf tenderness, clubbing, pedal edema Neurological exam: PRESENT: alert, awake, oriented to person, oriented to place , oriented to time, oriented to situation, CN II-XII grossly intact. ABSENT: motor sensory deficit Psychiatric exam: PRESENT: appropriate affect, normal mood. ABSENT: homicidal ideation, suicidal ideation Skin exam: PRESENT: dry, intact, warm. ABSENT: cyanosis, rash Results Laboratory Results: 12/30/16 06:49 01/02/17 03:59 12/30/16 06:49 NT-Pro-B Natriuret Pep 728 Impressions: Chest X-Ray 12/29/16 18:58 IMPRESSION: Right hilar fullness, probable lymphadenopathy, consider contrast CT to further characterize. Chest CT 12/30/16 00:00 IMPRESSION: Findings consistent with diffuse metastatic disease involving bulky mediastinal and right hilar lymphadenopathy as well as a few bilateral pulmonary nodules, multiple lesions in the liver, and multiple faint hypodensities in the thoracic spine. Guidance Needle Placement CT 01/02/17 00:00 IMPRESSION: CT GUIDED RIGHT LOBE LIVER BIOPSY PERFORMED ABOVE. PATHOLOGY PENDING. NO IMMEDIATE COMPLICATIONS. Liver Biopsy CT 01/02/17 07:00 IMPRESSION: CT GUIDED RIGHT LOBE LIVER BIOPSY PERFORMED ABOVE. PATHOLOGY PENDING. NO IMMEDIATE COMPLICATIONS. Assessment & Plan - Diagnosis (1) Metastatic malignant neoplasm of unknown primary site Is this a current diagnosis for this admission?: YesPlan: Underwent CT-guided biopsy on Monday. Do appreciate Dr. Gardner's input with this. (2) Cardiomyopathy Qualifiers: Cardiomyopathy type: unspecified Qualified Code(s): I42.9 - Cardiomyopathy, unspecified Is this a current diagnosis for this admission?: YesPlan: It appears the patient has regained his EF. Do appreciate cardiology's input with this. (3) ARF (acute renal failure) Qualifiers: Acute renal failure type: unspecified Qualified Code(s): N17.9 - Acute kidney failure, unspecified Is this a current diagnosis for this admission?: YesPlan: Do appreciate nephrology's input with this. Creatinine has normalized. (4) Hypomagnesemia Is this a current diagnosis for this admission?: YesPlan: Will replete (5) Hyperkalemia Is this a current diagnosis for this admission?: YesPlan: Secondary to #1 as well as ARDEN inhibitor. Overall has improved with Kayexalate and calcium gluconate. (6) Hypotension Qualifiers: Hypotension type: unspecified hypotension type Qualified Code(s): I95.9 - Hypotension, unspecified Is this a current diagnosis for this admission?: YesPlan: This has improved with hydration and holding blood pressure medications. (7) Metabolic acidosis Is this a current diagnosis for this admission?: YesPlan: To appreciate nephrology input. (8) Alcohol dependency Qualifiers: Substance use status: uncomplicated Qualified Code(s): F10.20 - Alcohol dependence, uncomplicated Is this a current diagnosis for this admission?: YesPlan: Will supplement B vitamins. (9) Thyroid mass Is this a current diagnosis for this admission?: Yes (10) Tobacco use disorder Is this a current diagnosis for this admission?: YesPlan: When necessary nicotine patch - Time Time Spent with patient: 25-34 minutes Medications reviewed and adjusted accordingly: Yes Anticipated discharge: Home Within: within 24 hours Disposition: The patient is a full code. Pending patient's symptomatology and diagnostic findings will reevaluate in the a.m.
[2017-01-03] MEDS: LORAZEPAM 1 MG TABLET PO PRN (17:55)
[2017-01-03] MEDS: OXYCODONE HCL IR 5 MG TABLET PO PRN ×2 (17:55→22:19)
--- NOTE | 2017-01-03 20:02 | PDOC PROGRESS REPORT ---
Subjective Progress Note for:: 01/03/17 Subjective:: Patient seen earlier this morning on rounds. Patient seems to be doing better with gradual improvement. Pt is denying any chest arm or neck discomfort. Patient denying any PND, orthopnea. Patient denied any sustained palpitations, dizziness, syncope, near syncope. Patient denying any fever chills. Patient denying any other significant discomfort. Patient had liver biopsy yesterday and results are pending. Patient is complaining of bilateral hip pain and lower abdominal pain. Telemetry strips reviewed showed sinus rhythm Review of systems: Rest review of systems negative. Medications: Medications have been reviewed. Physical Exam Vital Signs: Temp Pulse Resp BP Pulse Ox 98.9 F 93 19 127/76 H 93 01/03/17 15:11 01/03/17 15:11 01/03/17 15:11 01/03/17 15:11 01/03/17 15:11 Intake & Output 01/02/17 01/03/17 01/04/17 06:59 06:59 06:59 Intake Total 2162 2447 1894 Output Total 1525 0 Balance 637 2447 1894 Weight 78 kg 77.3 kg Exam: GENERAL: well-nourished and in no acute distress. Alert and oriented x3 HEAD: Atraumatic, normocephalic. EYES: Pupils equal round and reactive to light, extraocular movements intact, sclera anicteric, conjunctiva are normal. ENT: TMs normal, nares patent, oropharynx clear without exudates. Moist mucous membranes. No oral ulcerations or bleeding gums noted NECK: supple without lymphadenopathy. Trachea is central. No cervical or axillary lymphadenopathy noted. Carotids are 2+, JVD WNL LUNGS: Respiration seems nonlabored, no significant accessory muscle action noted. Breath sounds clear to auscultation bilaterally and equal noted. No wheezes rales or rhonchi noted. No significant dullness noted on percussion. CHEST: Palpation of the chest wall shows no significant chest wall tenderness. No other significant abnormalities noted. 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 ABDOMEN: Soft, abdomen is mildly distended. No significant tenderness appreciated, normoactive bowel sounds. No guarding, no rebound. No rigidity noted . No masses appreciated. Liver is noted to be enlarged. EXTREMITIES: Pedal pulses are 1-2+, no calf tenderness noted. No clubbing or cyanosis.trace to 1+ pedal edema noted NEUROLOGICAL: Focused neurological exam showed no significant neurologic deficit. Normal speech, no focal weakness appreciated. PSYCH: Normal mood, normal affect. Judgment and insight within normal limits. SKIN: No significant ecchymosis, rash, ulcerations or signs of pruritus noted. MUSCULOSKELETAL EXAM: No significant joint swelling noted. Results Laboratory Results: 12/30/16 06:49 01/02/17 03:59 12/30/16 06:49 NT-Pro-B Natriuret Pep 728 Impressions: Chest X-Ray 12/29/16 18:58 IMPRESSION: Right hilar fullness, probable lymphadenopathy, consider contrast CT to further characterize. Chest CT 12/30/16 00:00 IMPRESSION: Findings consistent with diffuse metastatic disease involving bulky mediastinal and right hilar lymphadenopathy as well as a few bilateral pulmonary nodules, multiple lesions in the liver, and multiple faint hypodensities in the thoracic spine. Guidance Needle Placement CT 01/02/17 00:00 IMPRESSION: CT GUIDED RIGHT LOBE LIVER BIOPSY PERFORMED ABOVE. PATHOLOGY PENDING. NO IMMEDIATE COMPLICATIONS. Liver Biopsy CT 01/02/17 07:00 IMPRESSION: CT GUIDED RIGHT LOBE LIVER BIOPSY PERFORMED ABOVE. PATHOLOGY PENDING. NO IMMEDIATE COMPLICATIONS. Assessment & Plan - Diagnosis (1) Cardiomyopathy Qualifiers: Cardiomyopathy type: unspecified Qualified Code(s): I42.9 - Cardiomyopathy, unspecified Is this a current diagnosis for this admission?: Yes (2) ARF (acute renal failure) Qualifiers: Acute renal failure type: unspecified Qualified Code(s): N17.9 - Acute kidney failure, unspecified Is this a current diagnosis for this admission?: Yes (3) Abdominal pain, generalized Is this a current diagnosis for this admission?: Yes (4) Hyperkalemia Is this a current diagnosis for this admission?: Yes (5) Alcohol dependency Qualifiers: Substance use status: uncomplicated Qualified Code(s): F10.20 - Alcohol dependence, uncomplicated Is this a current diagnosis for this admission?: Yes (6) Tobacco use disorder Is this a current diagnosis for this admission?: Yes (7) Metastatic malignant neoplasm of unknown primary site Is this a current diagnosis for this admission?: Yes (8) Elevated LFTs Is this a current diagnosis for this admission?: Yes - Notes Notes: Cardiomyopathy: Patient was placed on carvedilol. Patient seems to be tolerating that dose. Hyperkalemia: Patient may benefit from reinstitution of Miguel/ARB if feasible Will seek guidance from assembler chassis. Acute renal failure: This has improved. May consider discontinuing IV fluids. Hyperkalemia: Persistent. Metastasis tumor: Liver biopsy results are pending. Abnormal LFT: Stable. It seems that patient has significant problems with debility and also does not have someone to take care of him. Elevation to has been stable from cardiac standpoint. Previous cardiac evaluations were reviewed with the patient. We will be happy to follow patient in the office in outpatient setting. Please reconsult if needed. - Time Time with patient: 15-25 minutes - CODE STATUS was discussed, patient remains full code. Surrogate decision-maker unchanged. Multiple medical problems were addressed.More than 50% of the time spent coordinating care, discussing management plans with involved caregivers. Management plans discussed with involved personnels. Medical decision making was of moderate complexity, patient's has multiple severe comorbidities. Medications reviewed and adjusted accordingly: Yes
[2017-01-04 05:20] LABS: HEMATOCRIT 36.5 % (37.9-51.0); HEMOGLOBIN 12.5 g/dL (13.5-17.0); MEAN CORPUSCULAR HEMOGLOBIN 35.2 pg (27.0-33.4); MEAN CORPUSCULAR HGB CONC 34.4 g/dL (32.0-36.0); MEAN CORPUSCULAR VOLUME 103 fl (80-97); RED BLOOD COUNT 3.56 10^6/uL (4.35-5.55); WHITE BLOOD COUNT 10.8 10^3/uL (4.0-10.5)
[2017-01-04 05:44] LABS: ANION GAP 11 (5-19); BLOOD UREA NITROGEN 18 mg/dL (7-20); CARBON DIOXIDE 23 mmol/L (22-30); CHLORIDE 104 mmol/L (98-107); CREATININE RESULT 0.99 mg/dL (0.52-1.25); GLUCOSE 80 mg/dL (75-110); MAGNESIUM 1.4 mg/dL (1.6-2.3); POTASSIUM 4.8 mmol/L (3.6-5.0); SODIUM 138.2 mmol/L (137-145)
[2017-01-04] MEDS ORDERED: NORMAL SALINE 1000 ML 1,000 ML IV ONE (07:00)
--- NOTE | 2017-01-04 08:07 | PDOC PROGRESS REPORT ---
Subjective Progress Note for:: 01/03/17 Subjective:: Diffuse aching in abdomen and back, occ'l headache. Physical Exam Vital Signs: Temp Pulse Resp BP Pulse Ox 97.7 F 100 24 H 128/75 H 92 01/04/17 03:56 01/04/17 03:56 01/04/17 03:56 01/04/17 03:56 01/04/17 03:56 Intake & Output 01/03/17 01/04/17 01/05/17 06:59 06:59 06:59 Intake Total 2447 2199 Output Total 0 Balance 2447 2199 Weight 77.3 kg 76.3 kg General appearance: PRESENT: no acute distress Head exam: PRESENT: atraumatic, normocephalic Eye exam: PRESENT: PERRLA Respiratory exam: PRESENT: prolonged expiratory phas Cardiovascular exam: PRESENT: RRR GI/Abdominal exam: PRESENT: distended, other - hepatomegaly Neurological exam: PRESENT: alert, oriented to person, oriented to place, oriented to time, oriented to situation, CN II-XII grossly intact Results Laboratory Results: 01/04/17 04:45 01/04/17 04:45 01/04/17 01/04/17 04:45 04:45 WBC 10.8 H RBC 3.56 L Hgb 12.5 L Hct 36.5 L MCV 103 H MCH 35.2 H MCHC 34.4 RDW 14.0 Plt Count 280 Sodium 138.2 Potassium 4.8 Chloride 104 Carbon Dioxide 23 Anion Gap 11 BUN 18 Creatinine 0.99 Est GFR ( Amer) > 60 Est GFR (Non-Af Amer) > 60 Glucose 80 Calcium 12.0 H* Magnesium 1.4 L 12/30/16 06:49 NT-Pro-B Natriuret Pep 728 Impressions: Chest X-Ray 12/29/16 18:58 IMPRESSION: Right hilar fullness, probable lymphadenopathy, consider contrast CT to further characterize. Chest CT 12/30/16 00:00 IMPRESSION: Findings consistent with diffuse metastatic disease involving bulky mediastinal and right hilar lymphadenopathy as well as a few bilateral pulmonary nodules, multiple lesions in the liver, and multiple faint hypodensities in the thoracic spine. Guidance Needle Placement CT 01/02/17 00:00 IMPRESSION: CT GUIDED RIGHT LOBE LIVER BIOPSY PERFORMED ABOVE. PATHOLOGY PENDING. NO IMMEDIATE COMPLICATIONS. Liver Biopsy CT 01/02/17 07:00 IMPRESSION: CT GUIDED RIGHT LOBE LIVER BIOPSY PERFORMED ABOVE. PATHOLOGY PENDING. NO IMMEDIATE COMPLICATIONS. Assessment & Plan - Diagnosis (1) ARF (acute renal failure) Qualifiers: Acute renal failure type: unspecified Qualified Code(s): N17.9 - Acute kidney failure, unspecified Is this a current diagnosis for this admission?: YesPlan: Improved (2) Hyperkalemia Is this a current diagnosis for this admission?: Yes (3) Metastatic malignant neoplasm of unknown primary site Is this a current diagnosis for this admission?: YesPlan: Biopsy c/w small cell lung cancer. Have informed the patient and will complete staging and begin VP16 and Carboplatin. Will likely need a port. He is aware of the poor prognosis especially if not treated (4) Alcohol dependency Qualifiers: Substance use status: uncomplicated Qualified Code(s): F10.20 - Alcohol dependence, uncomplicated Is this a current diagnosis for this admission?: Yes (5) Tobacco use disorder Is this a current diagnosis for this admission?: Yes - Time Time Spent with patient: 35 or more minutes Critical Time spent with patient: 35 or more minutes
[2017-01-04] MEDS ORDERED: MAGNESIUM SULFATE/D5W 1 GM/100 ML RTUPB IV SCH (09:00)
--- NOTE | 2017-01-04 11:07 | PDOC PROGRESS REPORT ---
Subjective Progress Note for:: 01/04/17 Subjective:: Not able to do the MRI earlier. Reports that having some headache. Physical Exam Vital Signs: Temp Pulse Resp BP Pulse Ox 97.4 F 116 H 19 121/77 93 01/04/17 07:47 01/04/17 07:47 01/04/17 07:47 01/04/17 07:47 01/04/17 07:47 Intake & Output 01/03/17 01/04/17 01/05/17 06:59 06:59 06:59 Intake Total 2447 2199 Output Total 0 Balance 2447 2199 Weight 77.3 kg 76.3 kg General appearance: PRESENT: no acute distress Head exam: PRESENT: atraumatic, normocephalic Eye exam: PRESENT: EOMI, PERRLA Respiratory exam: PRESENT: prolonged expiratory phas Cardiovascular exam: PRESENT: RRR GI/Abdominal exam: PRESENT: distended Neurological exam: PRESENT: alert, awake, CN II-XII grossly intact Results Laboratory Results: 01/04/17 04:45 01/04/17 04:45 01/04/17 01/04/17 04:45 04:45 WBC 10.8 H RBC 3.56 L Hgb 12.5 L Hct 36.5 L MCV 103 H MCH 35.2 H MCHC 34.4 RDW 14.0 Plt Count 280 Sodium 138.2 Potassium 4.8 Chloride 104 Carbon Dioxide 23 Anion Gap 11 BUN 18 Creatinine 0.99 Est GFR ( Amer) > 60 Est GFR (Non-Af Amer) > 60 Glucose 80 Calcium 12.0 H* Magnesium 1.4 L 12/30/16 06:49 NT-Pro-B Natriuret Pep 728 Impressions: Chest X-Ray 12/29/16 18:58 IMPRESSION: Right hilar fullness, probable lymphadenopathy, consider contrast CT to further characterize. Chest CT 12/30/16 00:00 IMPRESSION: Findings consistent with diffuse metastatic disease involving bulky mediastinal and right hilar lymphadenopathy as well as a few bilateral pulmonary nodules, multiple lesions in the liver, and multiple faint hypodensities in the thoracic spine. Guidance Needle Placement CT 01/02/17 00:00 IMPRESSION: CT GUIDED RIGHT LOBE LIVER BIOPSY PERFORMED ABOVE. PATHOLOGY PENDING. NO IMMEDIATE COMPLICATIONS. Liver Biopsy CT 01/02/17 07:00 IMPRESSION: CT GUIDED RIGHT LOBE LIVER BIOPSY PERFORMED ABOVE. PATHOLOGY PENDING. NO IMMEDIATE COMPLICATIONS. Assessment & Plan - Diagnosis (1) ARF (acute renal failure) Qualifiers: Acute renal failure type: unspecified Qualified Code(s): N17.9 - Acute kidney failure, unspecified Is this a current diagnosis for this admission?: YesPlan: Improved with hydration (2) Hyperkalemia Is this a current diagnosis for this admission?: Yes (3) Metastatic malignant neoplasm of unknown primary site Is this a current diagnosis for this admission?: YesPlan: Biopsy c/w small cell lung cancer. Have informed the patient and will complete staging and begin VP16 and Carboplatin. Will likely need a port. He is aware of the poor prognosis especially if not treated but hopefully will have some response (4) Alcohol dependency Qualifiers: Substance use status: uncomplicated Qualified Code(s): F10.20 - Alcohol dependence, uncomplicated Is this a current diagnosis for this admission?: Yes (5) Tobacco use disorder Is this a current diagnosis for this admission?: Yes - Time Time Spent with patient: 25-34 minutes Critical Time spent with patient: 15-24 minutes - Inpatient Certification I certify that my determination is in accordance with my understanding of Medicare's requirements for reasonable and necessary INPATIENT services [42 CFR 412.3e].: Yes
[2017-01-04] MEDS: HEPARIN SOD (PORCINE) 5,000 UNIT/ML 1 ML SYRINGE SUBCUT SCH ×2 (11:29→22:53)
[2017-01-04] MEDS: CARVEDILOL 12.5 MG TABLET PO SCH ×2 (11:35→22:51)
[2017-01-04] MEDS: MAGNESIUM SULFATE 1 GM/D5W 100 ML IV SCH ×2 (11:35→12:39)
[2017-01-04] MEDS: ASPIRIN 81 MG TABLET, ENT COATED PO SCH (11:36)
[2017-01-04] MEDS: MULTIVITAMIN TABLET PO SCH (11:36)
[2017-01-04] MEDS: THIAMINE HCL 100 MG TABLET PO SCH (11:36)
[2017-01-04] MEDS: FOLIC ACID 1 MG TABLET PO SCH (11:36)
--- NOTE | 2017-01-04 15:06 | PDOC PROGRESS REPORT ---
Subjective Progress Note for:: 01/04/17 Subjective:: The patient is an unfortunate 51-year-old male who presented to the emergency room with worsening fatigue. The patient was found to be in acute renal failure with significant hyperkalemia. He had recently been diagnosed with liver metastases from an unknown primary. He was supposed to have a have an out patient PET scan as well as biopsy performed however he did not make it to that appointment. He had a CT-guided biopsy of one of his liver lesions which has revealed a non-small cell cancer. He has had an MRI of the brain that was negative. He has known liver lesions and some hypodensities noted in the thoracic spine on chest CT. He is scheduled to have a bone scan performed in Dr. Gardner from the oncology service is going to start the patient on chemotherapy in the near future. Today when I saw the patient he is resting in the bed. He states that he is just stiff and sore and he is having pain in his back. We discussed his diagnosis and all of his questions were answered. He denies fever chills. He' s had no chest pain or heart palpitations. He continues to have a cough at times. He's had no nausea or vomiting but does not have much in the way of appetite. He states he is having bowel movements. He denies dysuria, frequency or hematuria. Physical Exam Vital Signs: Temp Pulse Resp BP Pulse Ox 97.6 F 102 H 20 127/75 H 93 01/04/17 11:45 01/04/17 11:45 01/04/17 11:45 01/04/17 11:45 01/04/17 11:45 Intake & Output 01/03/17 01/04/17 01/05/17 06:59 06:59 06:59 Intake Total 2447 2199 400 Output Total 0 Balance 2447 2199 400 Weight 77.3 kg 76.3 kg Results Laboratory Results: 01/04/17 04:45 01/04/17 04:45 01/04/17 01/04/17 04:45 04:45 WBC 10.8 H RBC 3.56 L Hgb 12.5 L Hct 36.5 L MCV 103 H MCH 35.2 H MCHC 34.4 RDW 14.0 Plt Count 280 Sodium 138.2 Potassium 4.8 Chloride 104 Carbon Dioxide 23 Anion Gap 11 BUN 18 Creatinine 0.99 Est GFR ( Amer) > 60 Est GFR (Non-Af Amer) > 60 Glucose 80 Calcium 12.0 H* Magnesium 1.4 L 12/30/16 06:49 NT-Pro-B Natriuret Pep 728 Impressions: Chest X-Ray 12/29/16 18:58 IMPRESSION: Right hilar fullness, probable lymphadenopathy, consider contrast CT to further characterize. Chest CT 12/30/16 00:00 IMPRESSION: Findings consistent with diffuse metastatic disease involving bulky mediastinal and right hilar lymphadenopathy as well as a few bilateral pulmonary nodules, multiple lesions in the liver, and multiple faint hypodensities in the thoracic spine. Guidance Needle Placement CT 01/02/17 00:00 IMPRESSION: CT GUIDED RIGHT LOBE LIVER BIOPSY PERFORMED ABOVE. PATHOLOGY PENDING. NO IMMEDIATE COMPLICATIONS. Liver Biopsy CT 01/02/17 07:00 IMPRESSION: CT GUIDED RIGHT LOBE LIVER BIOPSY PERFORMED ABOVE. PATHOLOGY PENDING. NO IMMEDIATE COMPLICATIONS. Head MRI 01/04/17 00:00 IMPRESSION: No acute intracranial abnormality. No evidence of brain metastasis. No enhancing mass lesions. Minimal chronic microvascular ischemic disease changes. Assessment & Plan - Diagnosis (2) ARF (acute renal failure) Qualifiers: Acute renal failure type: unspecified Qualified Code(s): N17.9 - Acute kidney failure, unspecified Is this a current diagnosis for this admission?: YesPlan: He has been followed by nephrology during this hospitalization. His acute renal failure still totally resolved and his renal function is back to normal. (3) Hyperkalemia Is this a current diagnosis for this admission?: YesPlan: Secondary to acute renal failure. Resolved (4) Hyperphosphatemia Is this a current diagnosis for this admission?: YesPlan: Likely secondary to acute renal failure. Resolved. (5) Hypomagnesemia Is this a current diagnosis for this admission?: YesPlan: His level is quite low today. He'll receive 3 g of magnesium sulfate today we' ll recheck a magnesium level in the morning. (6) Metabolic acidosis Is this a current diagnosis for this admission?: YesPlan: Secondary to acute renal failure. Resolved (7) Combined systolic and diastolic congestive heart failure Plan: Currently the patient appears to be euvolemic. (8) Tobacco use disorder Is this a current diagnosis for this admission?: YesPlan: Certainly it would be in his best interest to quit smoking. We will discuss this further tomorrow. - Time Time Spent with patient: 15-24 minutes - Inpatient Certification Based on my medical assessment, after consideration of the patient's comorbidities, presenting symptoms, or acuity I expect that the services needed warrant INPATIENT care.: Yes
--- NOTE | 2017-01-04 15:54 | Progress Note ---
Provider Note Provider Note: Palliative Care visit with patient, at 12:15PM . Discussed code status with Mr. Ramirez. He said he does not want CPR or intubation. Especially in light of his possible cancer diagnosis ( waiting for biopsy reports), he feels extending his life with artificial means would be futile. I did tell his RN that he wants to be DNR. Will follow with patient.
[2017-01-04] MEDS: OXYCODONE HCL IR 5 MG TABLET PO PRN ×2 (16:53→22:52)
[2017-01-05 08:27] LABS: ABSOLUTE BASOPHILS # (AUTO) 0.1 10^3/uL (0.0-0.2); ABSOLUTE EOSINOPHILS # (AUTO) 0.1 10^3/uL (0.0-0.6); ABSOLUTE LYMPHOCYTES (AUTO) 1.1 10^3/uL (0.5-4.7); ABSOLUTE MONOCYTES (AUTO) 0.8 10^3/uL (0.1-1.4); ABSOLUTE NEUT (AUTO) 10.1 10^3/uL (1.7-8.2); BASOPHILS % (AUTO) 0.5 % (0-2); EOSINOPHILS % (AUTO) 0.8 % (0-6); HEMATOCRIT 36.3 % (37.9-51.0); HEMOGLOBIN 12.3 g/dL (13.5-17.0); HGB HCT DIFFERENCE 0.6; LYMPHOCYTES % (AUTO) 8.8 % (13-45); MEAN CORPUSCULAR HEMOGLOBIN 34.8 pg (27.0-33.4); MEAN CORPUSCULAR HGB CONC 33.8 g/dL (32.0-36.0); MEAN CORPUSCULAR VOLUME 103 fl (80-97); MONOCYTES % (AUTO) 6.3 % (3-13); RED BLOOD COUNT 3.52 10^6/uL (4.35-5.55); RED CELL DISTRIBUTION WIDTH 14.1 % (11.5-14.0); SEGMENTED NEUTROPHILS % (AUTO) 83.6 % (42-78)
[2017-01-05 08:49] LABS: ALANINE AMINOTRANSFERASE 89 U/L (21-72); ALKALINE PHOSPHATASE 569 U/L (38-126); ANION GAP 10 (5-19); ASPARTATE AMINO TRANSFERASE 396 U/L (17-59); BILIRUBIN,DIRECT 1.6 mg/dL (0.0-0.4); BLOOD UREA NITROGEN 18 mg/dL (7-20); CARBON DIOXIDE 25 mmol/L (22-30); CHLORIDE 103 mmol/L (98-107); CREATININE RESULT 0.94 mg/dL (0.52-1.25); GLUCOSE 80 mg/dL (75-110); MAGNESIUM 1.8 mg/dL (1.6-2.3); POTASSIUM 4.9 mmol/L (3.6-5.0); SODIUM 137.8 mmol/L (137-145); TOTAL PROTEIN 6.7 g/dL (6.3-8.2)
[2017-01-05 09:00] LABS: CALCIUM 12.1 mg/dL (8.4-10.2)
[2017-01-05] MEDS: HEPARIN SOD (PORCINE) 5,000 UNIT/ML 1 ML SYRINGE SUBCUT SCH ×2 (09:39→22:48)
[2017-01-05] MEDS: ASPIRIN 81 MG TABLET, ENT COATED PO SCH (09:45)
[2017-01-05] MEDS: OXYCODONE HCL IR 5 MG TABLET PO PRN (09:45)
[2017-01-05] MEDS: FOLIC ACID 1 MG TABLET PO SCH (09:45)
[2017-01-05] MEDS: THIAMINE HCL 100 MG TABLET PO SCH (09:46)
[2017-01-05] MEDS: CARVEDILOL 12.5 MG TABLET PO SCH ×2 (09:46→22:47)
[2017-01-05] MEDS: MULTIVITAMIN TABLET PO SCH (09:46)
--- NOTE | 2017-01-05 10:17 | PDOC PROGRESS REPORT ---
Subjective Progress Note for:: 01/05/17 Subjective:: The patient is resting in his bed and states that he is feeling horrible this morning. He states that he is having a very bad headache. He states that his body aches all over and that he has developed a cough overnight. He denies fever or chills. He's had no chest pain or heart palpitations. He states that he has no appetite and feels slightly nauseated this morning. He's had no vomiting. He has had no abdominal pain. No dysuria, frequency or hematuria. Physical Exam Vital Signs: Temp Pulse Resp BP Pulse Ox 98.2 F 95 19 121/82 89 L 01/05/17 07:41 01/05/17 07:41 01/05/17 07:41 01/05/17 07:41 01/05/17 07:41 Intake & Output 01/04/17 01/05/17 01/06/17 06:59 06:59 06:59 Intake Total 2199 1576 Balance 2199 1576 Weight 76.3 kg 76.5 kg General appearance: PRESENT: no acute distress, disheveled, other - He is chronically ill-appearing Head exam: PRESENT: atraumatic, normocephalic Mouth exam: PRESENT: moist, tongue midline Respiratory exam: PRESENT: clear to auscultation jcarlos, decreased breath sounds. ABSENT: rales, rhonchi, wheezes Cardiovascular exam: PRESENT: RRR. ABSENT: diastolic murmur, rubs, systolic murmur GI/Abdominal exam: PRESENT: normal bowel sounds, organolmegaly, soft. ABSENT: distended, guarding, mass, rebound, tenderness Extremities exam: PRESENT: full ROM. ABSENT: calf tenderness, clubbing, pedal edema Neurological exam: PRESENT: alert, awake, oriented to person, oriented to place , oriented to time, oriented to situation, CN II-XII grossly intact. ABSENT: motor sensory deficit Psychiatric exam: PRESENT: depressed Results Laboratory Results: 01/05/17 08:14 01/05/17 08:14 01/05/17 01/05/17 08:14 08:14 WBC 12.0 H RBC 3.52 L Hgb 12.3 L Hct 36.3 L MCV 103 H MCH 34.8 H MCHC 33.8 RDW 14.1 H Plt Count 270 Seg Neutrophils % 83.6 H Lymphocytes % 8.8 L Monocytes % 6.3 Eosinophils % 0.8 Basophils % 0.5 Absolute Neutrophils 10.1 H Absolute Lymphocytes 1.1 Absolute Monocytes 0.8 Absolute Eosinophils 0.1 Absolute Basophils 0.1 Sodium 137.8 Potassium 4.9 Chloride 103 Carbon Dioxide 25 Anion Gap 10 BUN 18 Creatinine 0.94 Est GFR ( Amer) > 60 Est GFR (Non-Af Amer) > 60 Glucose 80 Calcium 12.1 H* Magnesium 1.8 Total Bilirubin 2.0 H AST 396 H ALT 89 H Alkaline Phosphatase 569 H Total Protein 6.7 Albumin 3.0 L 12/30/16 06:49 NT-Pro-B Natriuret Pep 728 Impressions: Chest X-Ray 12/29/16 18:58 IMPRESSION: Right hilar fullness, probable lymphadenopathy, consider contrast CT to further characterize. Chest CT 12/30/16 00:00 IMPRESSION: Findings consistent with diffuse metastatic disease involving bulky mediastinal and right hilar lymphadenopathy as well as a few bilateral pulmonary nodules, multiple lesions in the liver, and multiple faint hypodensities in the thoracic spine. Guidance Needle Placement CT 01/02/17 00:00 IMPRESSION: CT GUIDED RIGHT LOBE LIVER BIOPSY PERFORMED ABOVE. PATHOLOGY PENDING. NO IMMEDIATE COMPLICATIONS. Liver Biopsy CT 01/02/17 07:00 IMPRESSION: CT GUIDED RIGHT LOBE LIVER BIOPSY PERFORMED ABOVE. PATHOLOGY PENDING. NO IMMEDIATE COMPLICATIONS. Body Scan Nuclear Medicine 01/04/17 00:00 IMPRESSION: Suspicious for metastatic disease, as above. Most notable in the skull. Head MRI 01/04/17 00:00 IMPRESSION: No acute intracranial abnormality. No evidence of brain metastasis. No enhancing mass lesions. Minimal chronic microvascular ischemic disease changes. Assessment & Plan - Diagnosis (1) Small cell lung cancer Plan: I spoke to Dr. Gardner today who plans to give him chemotherapy today and tomorrow. He will not be able to receive it over the weekend and could potentially be discharged. Bone scan revealed evidence of bony metastases primarily in the skull. (2) Hypercalcemia Plan: The patient will receive a dose of Zometa today per Dr. Gardner. I will start the patient on some gentle hydration as well. (3) ARF (acute renal failure) Qualifiers: Acute renal failure type: unspecified Qualified Code(s): N17.9 - Acute kidney failure, unspecified Is this a current diagnosis for this admission?: YesPlan: He has been followed by nephrology during this hospitalization. His acute renal failure has totally resolved and his renal function is back to normal. (4) Hyperkalemia Is this a current diagnosis for this admission?: YesPlan: Secondary to acute renal failure. Resolved (5) Hyperphosphatemia Is this a current diagnosis for this admission?: YesPlan: Likely secondary to acute renal failure. Resolved. (6) Hypomagnesemia Is this a current diagnosis for this admission?: YesPlan: He received 3 g of magnesium sulfate yesterday. I will start the patient on 400 mg of magnesium oxide twice daily today. (7) Metabolic acidosis Is this a current diagnosis for this admission?: YesPlan: Secondary to acute renal failure. Resolved (8) Combined systolic and diastolic congestive heart failure Plan: Currently the patient appears to be euvolemic. I'm going to start him on some gentle hydration for his hypercalcemia today. We will have to watch him quite closely for signs of volume overload. (9) Tobacco use disorder Is this a current diagnosis for this admission?: YesPlan: Certainly it would be in his best interest to quit smoking. (10) Leukocytosis Plan: The patient has increasing leukocytosis. I'm going to get a chest x-ray this morning for further evaluation. He has been afebrile but reports increasing cough and body aches. We will start him on antibiotic therapy if chest x-ray is suggestive of pneumonia. - Time Time Spent with patient: 15-24 minutes
[2017-01-05] MEDS ORDERED: MAGNESIUM OXIDE 400 MG TABLET PO ONE (10:45)
[2017-01-05] MEDS ORDERED: OXYCODONE HCL SR 10 MG TABLET PO ONE (10:45)
[2017-01-05] MEDS ORDERED: NORMAL SALINE 250 ML IV PRN (11:58)
[2017-01-05] MEDS ORDERED: ONDANSETRON HCL/PF 16 MG, DEXAMETHASONE SOD PHOSPHATE 10 MG in NORMAL SALINE 50 ML IV PRN (11:59)
[2017-01-05] MEDS ORDERED: NORMAL SALINE IV PRN ×2 (12:01→12:02)
[2017-01-05] MEDS ORDERED: ETOPOSIDE IV PRN (12:01)
[2017-01-05] MEDS ORDERED: CARBOPLATIN IV PRN (12:02)
[2017-01-05] MEDS ORDERED: ZOLEDRONIC ACID/MANNITOL/WATER 4 MG/100 ML INFUS..BTL IV PRN (14:38)
[2017-01-05] MEDS: MAGNESIUM OXIDE 400 MG TABLET PO SCH (17:18)
[2017-01-05] MEDS: OXYCODONE HCL SR 10 MG TABLET PO SCH (22:47)
[2017-01-05] MEDS: NORMAL SALINE 1000 ML 1,000 ML IV PRN (23:49)
--- NOTE | 2017-01-06 00:53 | PDOC PROGRESS REPORT ---
Subjective Progress Note for:: 01/05/17 Subjective:: Head hurts Physical Exam Vital Signs: Temp Pulse Resp BP Pulse Ox 98.6 F 100 16 129/79 H 92 01/05/17 19:29 01/05/17 19:29 01/05/17 19:29 01/05/17 19:29 01/05/17 19:29 Intake & Output 01/04/17 01/05/17 01/06/17 06:59 06:59 06:59 Intake Total 2199 1576 1568 Balance 2199 1576 1568 Weight 76.3 kg 76.5 kg General appearance: PRESENT: no acute distress Head exam: PRESENT: atraumatic Eye exam: PRESENT: EOMI, PERRLA Ear exam: PRESENT: normal external ear exam Mouth exam: PRESENT: moist Neck exam: PRESENT: meningismus Respiratory exam: PRESENT: accessory muscle use Cardiovascular exam: PRESENT: RRR Results Laboratory Results: 01/05/17 08:14 01/05/17 08:14 01/05/17 01/05/17 08:14 08:14 WBC 12.0 H RBC 3.52 L Hgb 12.3 L Hct 36.3 L MCV 103 H MCH 34.8 H MCHC 33.8 RDW 14.1 H Plt Count 270 Seg Neutrophils % 83.6 H Lymphocytes % 8.8 L Monocytes % 6.3 Eosinophils % 0.8 Basophils % 0.5 Absolute Neutrophils 10.1 H Absolute Lymphocytes 1.1 Absolute Monocytes 0.8 Absolute Eosinophils 0.1 Absolute Basophils 0.1 Sodium 137.8 Potassium 4.9 Chloride 103 Carbon Dioxide 25 Anion Gap 10 BUN 18 Creatinine 0.94 Est GFR ( Amer) > 60 Est GFR (Non-Af Amer) > 60 Glucose 80 Calcium 12.1 H* Magnesium 1.8 Total Bilirubin 2.0 H AST 396 H ALT 89 H Alkaline Phosphatase 569 H Total Protein 6.7 Albumin 3.0 L 12/30/16 06:49 NT-Pro-B Natriuret Pep 728 Impressions: Chest CT 12/30/16 00:00 IMPRESSION: Findings consistent with diffuse metastatic disease involving bulky mediastinal and right hilar lymphadenopathy as well as a few bilateral pulmonary nodules, multiple lesions in the liver, and multiple faint hypodensities in the thoracic spine. Guidance Needle Placement CT 01/02/17 00:00 IMPRESSION: CT GUIDED RIGHT LOBE LIVER BIOPSY PERFORMED ABOVE. PATHOLOGY PENDING. NO IMMEDIATE COMPLICATIONS. Liver Biopsy CT 01/02/17 07:00 IMPRESSION: CT GUIDED RIGHT LOBE LIVER BIOPSY PERFORMED ABOVE. PATHOLOGY PENDING. NO IMMEDIATE COMPLICATIONS. Body Scan Nuclear Medicine 01/04/17 00:00 IMPRESSION: Suspicious for metastatic disease, as above. Most notable in the skull. Head MRI 01/04/17 00:00 IMPRESSION: No acute intracranial abnormality. No evidence of brain metastasis. No enhancing mass lesions. Minimal chronic microvascular ischemic disease changes. Chest X-Ray 01/05/17 10:02 IMPRESSION: Stable fullness in the right hilum consistent with known malignancy. No new focal infiltrates are identified. Assessment & Plan - Diagnosis (1) ARF (acute renal failure) Qualifiers: Acute renal failure type: unspecified Qualified Code(s): N17.9 - Acute kidney failure, unspecified Is this a current diagnosis for this admission?: Yes (2) Hyperkalemia Is this a current diagnosis for this admission?: Yes (3) Metastatic malignant neoplasm of unknown primary site Is this a current diagnosis for this admission?: Yes (4) Alcohol dependency Qualifiers: Substance use status: uncomplicated Qualified Code(s): F10.20 - Alcohol dependence, uncomplicated Is this a current diagnosis for this admission?: Yes (5) Tobacco use disorder Is this a current diagnosis for this admission?: Yes
[2017-01-06] MEDS ORDERED: NORMAL SALINE 250 ML IV PRN (05:00)
[2017-01-06] MEDS ORDERED: DEXAMETHASONE SOD PHOSPHATE 10 MG in NORMAL SALINE 50 ML IV PRN (05:00)
[2017-01-06] MEDS ORDERED: ETOPOSIDE IV PRN (05:00)
[2017-01-06] MEDS ORDERED: NORMAL SALINE IV PRN (05:00)
[2017-01-06 05:37] LABS: HEMATOCRIT 34.4 % (37.9-51.0); HEMOGLOBIN 11.8 g/dL (13.5-17.0); MEAN CORPUSCULAR HEMOGLOBIN 35.3 pg (27.0-33.4); MEAN CORPUSCULAR HGB CONC 34.4 g/dL (32.0-36.0); MEAN CORPUSCULAR VOLUME 102 fl (80-97); RED BLOOD COUNT 3.36 10^6/uL (4.35-5.55); RED CELL DISTRIBUTION WIDTH 14.1 % (11.5-14.0); WHITE BLOOD COUNT 15.9 10^3/uL (4.0-10.5)
[2017-01-06 05:50] LABS: ALANINE AMINOTRANSFERASE 107 U/L (21-72); ALBUMIN 2.9 g/dL (3.5-5.0); ALKALINE PHOSPHATASE 543 U/L (38-126); ANION GAP 8 (5-19); ASPARTATE AMINO TRANSFERASE 531 U/L (17-59); BILIRUBIN,DIRECT 1.5 mg/dL (0.0-0.4); BILIRUBIN,TOTAL 1.9 mg/dL (0.2-1.3); BLOOD UREA NITROGEN 24 mg/dL (7-20); CALCIUM 10.8 mg/dL (8.4-10.2); CARBON DIOXIDE 23 mmol/L (22-30); CHLORIDE 104 mmol/L (98-107); CREATININE RESULT 0.95 mg/dL (0.52-1.25); GLUCOSE 84 mg/dL (75-110); POTASSIUM 5.4 mmol/L (3.6-5.0); SODIUM 134.7 mmol/L (137-145); TOTAL PROTEIN 6.4 g/dL (6.3-8.2)
[2017-01-06 05:52] LABS: BAND NEUTROPHILS % (MANUAL) 1 % (3-5); BASOPHILS % (MANUAL) 0 % (0-2); EOSINOPHILS % (MANUAL) 0 % (0-6); LYMPHOCYTES % (MANUAL) 3 % (13-45); RBC MORPHOLOGY COMMENT NORMO-CYTIC/CHROMIC; TOTAL CELLS COUNTED 100; TOXIC VACUOLATION PRESENT
[2017-01-06] MEDS: OXYCODONE HCL IR 5 MG TABLET PO PRN ×3 (06:01→18:14)
[2017-01-06] MEDS: CARVEDILOL 12.5 MG TABLET PO SCH ×2 (08:42→22:25)
[2017-01-06] MEDS: OXYCODONE HCL SR 10 MG TABLET PO SCH ×2 (08:43→22:25)
[2017-01-06] MEDS: THIAMINE HCL 100 MG TABLET PO SCH (08:43)
[2017-01-06] MEDS: MAGNESIUM OXIDE 400 MG TABLET PO SCH ×2 (08:44→18:14)
[2017-01-06] MEDS: FOLIC ACID 1 MG TABLET PO SCH (08:44)
[2017-01-06] MEDS: MULTIVITAMIN TABLET PO SCH (08:45)
[2017-01-06] MEDS: ASPIRIN 81 MG TABLET, ENT COATED PO SCH (08:45)
[2017-01-06] MEDS: HEPARIN SOD (PORCINE) 5,000 UNIT/ML 1 ML SYRINGE SUBCUT SCH ×2 (09:50→22:29)
--- NOTE | 2017-01-06 16:52 | PDOC PROGRESS REPORT ---
Subjective Progress Note for:: 01/06/17 Subjective:: The patient is an unfortunate 51-year-old male who presented to the emergency room with worsening fatigue. The patient was found to be in acute renal failure with significant hyperkalemia. He had recently been diagnosed with liver metastases from an unknown primary. He was supposed to have a have an out patient PET scan as well as biopsy performed however he did not make it to that appointment. He had a CT-guided biopsy of one of his liver lesions which has revealed a non-small cell cancer. He has had an MRI of the brain that was negative. He has known liver lesions and some hypodensities noted in the thoracic spine on chest CT. He has had a bone scan performed which revealed bony metastases mainly to the skull. Dr. Gardner has started him on chemotherapy and he is scheduled for another treatment on Monday. For the past several days the patient has had an increasing leukocytosis. He has been afebrile. Chest xray was unchanged. He does not have a cough. Urine studies are pending. Today the patient has no complaints. He states he continues to have a headache. He was started on a regimen with OxyContin with oxycodone for breakthrough pain yesterday and he appears to be more comfortable. He's had no chest pain or heart palpitations. He does not have a cough at this point. He is not bringing up any sputum. No nausea, vomiting or diarrhea. He does not have any abdominal pain. No dysuria, frequency or hematuria Physical Exam Vital Signs: Temp Pulse Resp BP Pulse Ox 97.9 F 101 H 20 119/79 91 L 01/06/17 12:12 01/06/17 14:00 01/06/17 12:12 01/06/17 12:12 01/06/17 12:12 Intake & Output 01/05/17 01/06/17 01/07/17 06:59 06:59 06:59 Intake Total 1576 2933 1414 Balance 1576 2933 1414 Weight 76.5 kg 75.4 kg General appearance: PRESENT: no acute distress Exam: Chronically ill appearing Head exam: PRESENT: atraumatic, normocephalic Eye exam: PRESENT: conjunctiva pink, EOMI, PERRLA. ABSENT: scleral icterus Mouth exam: PRESENT: moist, tongue midline Respiratory exam: PRESENT: clear to auscultation jcarlos. ABSENT: rales, rhonchi, wheezes Cardiovascular exam: PRESENT: bradycardia, RRR. ABSENT: diastolic murmur, rubs , systolic murmur GI/Abdominal exam: PRESENT: normal bowel sounds, soft. ABSENT: distended, guarding, mass, organolmegaly, rebound, tenderness Extremities exam: PRESENT: full ROM. ABSENT: calf tenderness, clubbing, pedal edema Neurological exam: PRESENT: alert, awake, oriented to person, oriented to place , oriented to time, oriented to situation, CN II-XII grossly intact. ABSENT: motor sensory deficit Results Laboratory Results: 01/06/17 05:18 01/06/17 05:18 01/06/17 01/06/17 05:18 05:18 WBC 15.9 H RBC 3.36 L Hgb 11.8 L Hct 34.4 L MCV 102 H MCH 35.3 H MCHC 34.4 RDW 14.1 H Plt Count 273 Seg Neutrophils % Not Reportable Lymphocytes % Not Reportable Monocytes % Not Reportable Eosinophils % Not Reportable Basophils % Not Reportable Absolute Neutrophils Not Reportable Absolute Lymphocytes Not Reportable Absolute Monocytes Not Reportable Absolute Eosinophils Not Reportable Absolute Basophils Not Reportable Sodium 134.7 L Potassium 5.4 H Chloride 104 Carbon Dioxide 23 Anion Gap 8 BUN 24 H Creatinine 0.95 Est GFR ( Amer) > 60 Est GFR (Non-Af Amer) > 60 Glucose 84 Calcium 10.8 H Total Bilirubin 1.9 H AST 531 H ALT 107 H Alkaline Phosphatase 543 H Total Protein 6.4 Albumin 2.9 L 12/30/16 06:49 NT-Pro-B Natriuret Pep 728 Impressions: Chest CT 12/30/16 00:00 IMPRESSION: Findings consistent with diffuse metastatic disease involving bulky mediastinal and right hilar lymphadenopathy as well as a few bilateral pulmonary nodules, multiple lesions in the liver, and multiple faint hypodensities in the thoracic spine. Guidance Needle Placement CT 01/02/17 00:00 IMPRESSION: CT GUIDED RIGHT LOBE LIVER BIOPSY PERFORMED ABOVE. PATHOLOGY PENDING. NO IMMEDIATE COMPLICATIONS. Liver Biopsy CT 01/02/17 07:00 IMPRESSION: CT GUIDED RIGHT LOBE LIVER BIOPSY PERFORMED ABOVE. PATHOLOGY PENDING. NO IMMEDIATE COMPLICATIONS. Body Scan Nuclear Medicine 01/04/17 00:00 IMPRESSION: Suspicious for metastatic disease, as above. Most notable in the skull. Head MRI 01/04/17 00:00 IMPRESSION: No acute intracranial abnormality. No evidence of brain metastasis. No enhancing mass lesions. Minimal chronic microvascular ischemic disease changes. Chest X-Ray 01/05/17 10:02 IMPRESSION: Stable fullness in the right hilum consistent with known malignancy. No new focal infiltrates are identified. Assessment & Plan - Diagnosis (1) Small cell lung cancer Plan: I spoke to Dr. Gardner today who plans to give him chemotherapy began on Monday. From an oncology standpoint he is stable for discharge (2) Leukocytosis Plan: The patient has increasing leukocytosis. His chest x-ray was unremarkable. He is afebrile. Urine studies are pending I spoke to Dr. Dill and at this point we are just going to watch the patient closely. If he does well over the weekend he could potentially be discharged to home. If he is still here on Monday he will continue his chemotherapy. (3) Hypercalcemia Plan: Secondary to bony metastases. The patient will receive a dose of Zometa yesterday per Dr. Gardner. He will continue gentle hydration as well. His calcium level is improving. (4) ARF (acute renal failure) Qualifiers: Acute renal failure type: unspecified Qualified Code(s): N17.9 - Acute kidney failure, unspecified Is this a current diagnosis for this admission?: YesPlan: He has been followed by nephrology during this hospitalization. His acute renal failure has totally resolved and his renal function is back to normal. (5) Hyperkalemia Is this a current diagnosis for this admission?: YesPlan: Secondary to acute renal failure. Resolved (6) Hyperphosphatemia Is this a current diagnosis for this admission?: YesPlan: Likely secondary to acute renal failure. Resolved. (7) Hypomagnesemia Is this a current diagnosis for this admission?: YesPlan: He has been started on by mouth supplementation. We will check level in the morning. (8) Metabolic acidosis Is this a current diagnosis for this admission?: YesPlan: Secondary to acute renal failure. Resolved (9) Combined systolic and diastolic congestive heart failure Plan: Currently the patient appears to be euvolemic. He will continue gentle hydration for his hypercalcemia today. We will have to watch him quite closely for signs of volume overload. (10) Tobacco use disorder Is this a current diagnosis for this admission?: YesPlan: Certainly it would be in his best interest to quit smoking. - Time Time Spent with patient: 25-34 minutes - 25 minutes
[2017-01-07 01:20] LABS: APPEARANCE,URINE SLIGHTLY-CLOUDY; BILIRUBIN,URINE NEGATIVE (NEGATIVE); GLUCOSE, URINE NEGATIVE (NEGATIVE); KETONES,URINE NEGATIVE (NEGATIVE); LEUKOCYTE ESTERASE,URINE NEGATIVE (NEGATIVE); NITRITE,URINE NEGATIVE (NEGATIVE); PROTEIN,URINE 30 mg/dL (NEGATIVE); URINE SPECIFIC GRAVITY 1.016; UROBILINOGEN,URINE NEGATIVE mg/dL (<2.0)
[2017-01-07] MEDS: NORMAL SALINE 1000 ML 1,000 ML IV PRN (05:41)
[2017-01-07] MEDS: OXYCODONE HCL IR 5 MG TABLET PO PRN ×3 (05:43→18:35)
[2017-01-07] MEDS: OXYCODONE HCL SR 10 MG TABLET PO SCH ×2 (09:45→21:19)
[2017-01-07] MEDS: THIAMINE HCL 100 MG TABLET PO SCH (09:46)
[2017-01-07] MEDS: MAGNESIUM OXIDE 400 MG TABLET PO SCH ×2 (09:46→18:37)
[2017-01-07] MEDS: CARVEDILOL 12.5 MG TABLET PO SCH ×2 (09:46→21:19)
[2017-01-07] MEDS: ASPIRIN 81 MG TABLET, ENT COATED PO SCH (09:46)
[2017-01-07] MEDS: FOLIC ACID 1 MG TABLET PO SCH (09:47)
[2017-01-07] MEDS: HEPARIN SOD (PORCINE) 5,000 UNIT/ML 1 ML SYRINGE SUBCUT SCH ×2 (09:47→21:20)
[2017-01-07] MEDS: MULTIVITAMIN TABLET PO SCH (09:47)
[2017-01-07 11:26] LABS: ANION GAP 10 (5-19); BLOOD UREA NITROGEN 34 mg/dL (7-20); CALCIUM 8.9 mg/dL (8.4-10.2); CARBON DIOXIDE 21 mmol/L (22-30); CHLORIDE 100 mmol/L (98-107); CREATININE RESULT 0.88 mg/dL (0.52-1.25); GLUCOSE 97 mg/dL (75-110); MAGNESIUM 1.8 mg/dL (1.6-2.3); POTASSIUM 4.8 mmol/L (3.6-5.0)
--- NOTE | 2017-01-07 17:11 | PDOC PROGRESS REPORT ---
Subjective Progress Note for:: 01/07/17 Subjective:: Still with some head pain, mild nausea but no vomiting. Dr. Mcmahon increased his Oxycontin to 20mg po bid this am Physical Exam Vital Signs: Temp Pulse Resp BP Pulse Ox 98.4 F 96 19 112/72 95 01/07/17 15:41 01/07/17 15:41 01/07/17 15:41 01/07/17 15:41 01/07/17 15:41 Intake & Output 01/06/17 01/07/17 01/08/17 06:59 06:59 06:59 Intake Total 2933 4088 1028 Balance 2933 4088 1028 Weight 75.4 kg 77.1 kg General appearance: PRESENT: no acute distress Head exam: PRESENT: atraumatic, normocephalic Eye exam: PRESENT: EOMI, PERRLA Ear exam: PRESENT: normal external ear exam Mouth exam: PRESENT: tongue midline Respiratory exam: PRESENT: prolonged expiratory phas Cardiovascular exam: PRESENT: RRR GI/Abdominal exam: PRESENT: distended, organolmegaly Neurological exam: PRESENT: alert, awake, oriented to person, oriented to place , oriented to time, oriented to situation, CN II-XII grossly intact Results Laboratory Results: 01/06/17 05:18 01/07/17 10:50 01/07/17 01/07/17 01:00 10:50 Sodium 131.0 L Potassium 4.8 Chloride 100 Carbon Dioxide 21 L Anion Gap 10 BUN 34 H Creatinine 0.88 Est GFR ( Amer) > 60 Est GFR (Non-Af Amer) > 60 Glucose 97 Calcium 8.9 Magnesium 1.8 Urine Color YELLOW Urine Appearance SLIGHTLY-CLOUDY Urine pH 5.0 Ur Specific [place] 1.016 Urine Protein 30 H Urine Glucose (UA) NEGATIVE Urine Ketones NEGATIVE Urine Blood SMALL H Urine Nitrite NEGATIVE Ur Leukocyte Esterase NEGATIVE Urine WBC (Auto) 6 Urine RBC (Auto) 1 12/30/16 06:49 NT-Pro-B Natriuret Pep 728 Impressions: Chest CT 12/30/16 00:00 IMPRESSION: Findings consistent with diffuse metastatic disease involving bulky mediastinal and right hilar lymphadenopathy as well as a few bilateral pulmonary nodules, multiple lesions in the liver, and multiple faint hypodensities in the thoracic spine. Guidance Needle Placement CT 01/02/17 00:00 IMPRESSION: CT GUIDED RIGHT LOBE LIVER BIOPSY PERFORMED ABOVE. PATHOLOGY PENDING. NO IMMEDIATE COMPLICATIONS. Liver Biopsy CT 01/02/17 07:00 IMPRESSION: CT GUIDED RIGHT LOBE LIVER BIOPSY PERFORMED ABOVE. PATHOLOGY PENDING. NO IMMEDIATE COMPLICATIONS. Body Scan Nuclear Medicine 01/04/17 00:00 IMPRESSION: Suspicious for metastatic disease, as above. Most notable in the skull. Head MRI 01/04/17 00:00 IMPRESSION: No acute intracranial abnormality. No evidence of brain metastasis. No enhancing mass lesions. Minimal chronic microvascular ischemic disease changes. Chest X-Ray 01/05/17 10:02 IMPRESSION: Stable fullness in the right hilum consistent with known malignancy. No new focal infiltrates are identified. Assessment & Plan - Diagnosis (1) ARF (acute renal failure) Qualifiers: Acute renal failure type: unspecified Qualified Code(s): N17.9 - Acute kidney failure, unspecified Is this a current diagnosis for this admission?: YesPlan: Resolved (2) Hyperkalemia Is this a current diagnosis for this admission?: Yes (3) Metastatic malignant neoplasm of unknown primary site Is this a current diagnosis for this admission?: YesPlan: Has received Day 2 of therapy and discussed palliative radiation to painful bony sites. Agree with increasing his oxycontin and have added Phenergan. He has already received his Zometa as well for hypercalcemia (4) Alcohol dependency Qualifiers: Substance use status: uncomplicated Qualified Code(s): F10.20 - Alcohol dependence, uncomplicated Is this a current diagnosis for this admission?: Yes (5) Tobacco use disorder Is this a current diagnosis for this admission?: Yes - Time Time Spent with patient: 25-34 minutes Critical Time spent with patient: 15-24 minutes Medications reviewed and adjusted accordingly: Yes Anticipated discharge: Home Within: within 72 hours
--- NOTE | 2017-01-07 17:48 | PDOC PROGRESS REPORT ---
Subjective Progress Note for:: 01/07/17 Subjective:: Patient seen earlier today on morning rounds. Patient complains of skull pain. He complains of generalized weakness. He reports he does not understand exactly what is going on with his cancer. Patient denies chest pain, shortness of breath, abdominal pain, nausea, vomiting , fevers, chills, diarrhea, constipation. Physical Exam Vital Signs: Temp Pulse Resp BP Pulse Ox 98.4 F 96 19 112/72 95 01/07/17 15:41 01/07/17 15:41 01/07/17 15:41 01/07/17 15:41 01/07/17 15:41 Intake & Output 01/06/17 01/07/17 01/08/17 06:59 06:59 06:59 Intake Total 2933 4088 1028 Balance 2933 4088 1028 Weight 75.4 kg 77.1 kg Exam: General: Awake alert and oriented x3, no acute respiratory distress, pale, chronically ill-appearing HEENT: AT/NC, PERRL, EOMI, oropharynx is moist, pink, no scleral icterus, no conjunctival injection Neck: No JVD, trachea midline Chest: Clear to auscultation bilaterally, no wheezes rhonchi or rales; prolonged expiratory phase CV: Regular rate and rhythm, normal S1 and S2, no murmur, rub, or gallop Abdomen: Soft, nontender to palpation, nondistended, active bowel sounds; no rebound, rigidity, or guarding; + hepatomegaly Extremities: No cyanosis, clubbing or edema Neuro: Cranial nerves II through XII are grossly intact without focal deficits; awake alert and oriented x3 Psych: Normal mood and affect Results Laboratory Results: 01/06/17 05:18 01/07/17 10:50 01/07/17 01/07/17 01:00 10:50 Sodium 131.0 L Potassium 4.8 Chloride 100 Carbon Dioxide 21 L Anion Gap 10 BUN 34 H Creatinine 0.88 Est GFR ( Amer) > 60 Est GFR (Non-Af Amer) > 60 Glucose 97 Calcium 8.9 Magnesium 1.8 Urine Color YELLOW Urine Appearance SLIGHTLY-CLOUDY Urine pH 5.0 Ur Specific [place] 1.016 Urine Protein 30 H Urine Glucose (UA) NEGATIVE Urine Ketones NEGATIVE Urine Blood SMALL H Urine Nitrite NEGATIVE Ur Leukocyte Esterase NEGATIVE Urine WBC (Auto) 6 Urine RBC (Auto) 1 12/30/16 06:49 NT-Pro-B Natriuret Pep 728 Impressions: Chest CT 12/30/16 00:00 IMPRESSION: Findings consistent with diffuse metastatic disease involving bulky mediastinal and right hilar lymphadenopathy as well as a few bilateral pulmonary nodules, multiple lesions in the liver, and multiple faint hypodensities in the thoracic spine. Guidance Needle Placement CT 01/02/17 00:00 IMPRESSION: CT GUIDED RIGHT LOBE LIVER BIOPSY PERFORMED ABOVE. PATHOLOGY PENDING. NO IMMEDIATE COMPLICATIONS. Liver Biopsy CT 01/02/17 07:00 IMPRESSION: CT GUIDED RIGHT LOBE LIVER BIOPSY PERFORMED ABOVE. PATHOLOGY PENDING. NO IMMEDIATE COMPLICATIONS. Body Scan Nuclear Medicine 01/04/17 00:00 IMPRESSION: Suspicious for metastatic disease, as above. Most notable in the skull. Head MRI 01/04/17 00:00 IMPRESSION: No acute intracranial abnormality. No evidence of brain metastasis. No enhancing mass lesions. Minimal chronic microvascular ischemic disease changes. Chest X-Ray 01/05/17 10:02 IMPRESSION: Stable fullness in the right hilum consistent with known malignancy. No new focal infiltrates are identified. 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 Appreciate oncology input into this. For patient's pain will initiate on dexamethasone and increase his OxyContin. (2) Combined systolic and diastolic congestive heart failure Qualifiers: Congestive heart failure chronicity: acute on chronic Qualified Code (s): I50.43 - Acute on chronic combined systolic (congestive) and diastolic ( congestive) heart failure Is this a current diagnosis for this admission?: YesPlan: Currently euvolemic. Echo done on 12/30/2016 reveals: EF between 50 and 55%, mild diastolic dysfunction Patient has a prior history of cardiomyopathy with an EF in the 20s. Patient currently on Coreg, aspirin, and IV fluids. (3) Hypercalcemia Is this a current diagnosis for this admission?: YesPlan: Secondary to malignancy. Continue IV fluids. Patient has received Zometa. (4) Hypomagnesemia Is this a current diagnosis for this admission?: YesPlan: Continue to monitor and replete. (5) Alcohol dependency Qualifiers: Substance use status: uncomplicated Qualified Code(s): F10.20 - Alcohol dependence, uncomplicated Is this a current diagnosis for this admission?: YesPlan: Ativan when necessary continue thiamine and folic acid. (6) Tobacco use disorder Is this a current diagnosis for this admission?: YesPlan: Encourage cessation nicotine patch. (7) ARF (acute renal failure) Qualifiers: Acute renal failure type: unspecified Qualified Code(s): N17.9 - Acute kidney failure, unspecified Is this a current diagnosis for this admission?: YesPlan: Secondary to hypercalcemia. Currently improved. (8) Do not resuscitate Is this a current diagnosis for this admission?: YesPlan: Elected cousin, Latanya [place], is his surrogate decision maker. (9) Hyperkalemia Is this a current diagnosis for this admission?: NoPlan: Resolved - Time Time Spent with patient: 35 or more minutes Medications reviewed and adjusted accordingly: Yes Anticipated discharge: Home with Homehealth, Acute Rehab Within: within 48 hours - Inpatient Certification Based on my medical assessment, after consideration of the patient's comorbidities, presenting symptoms, or acuity I expect that the services needed warrant INPATIENT care.: Yes I certify that my determination is in accordance with my understanding of Medicare's requirements for reasonable and necessary INPATIENT services [42 CFR 412.3e].: Yes Medical Necessity: Need For IV Fluids, Need For Continuous Telemetry Monitoring Post Hospital 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
[2017-01-07] MEDS ORDERED: METOCLOPRAMIDE HCL INJ/PF 10 MG/2 ML SDV IV ONE (18:26)
[2017-01-07] MEDS ORDERED: DIPHENHYDRAMINE HCL 50 MG/ML VIAL IV ONE (18:26)
[2017-01-07] MEDS ORDERED: KETOROLAC TROMETHAMINE INJ/PF 30 MG/1 ML SDV IV ONE (18:26)
[2017-01-07] MEDS: ACETAMINOPHEN 325 MG TABLET PO PRN (18:34)
[2017-01-07] MEDS: DEXAMETHASONE 4 MG TABLET PO SCH ×2 (18:35→21:19)
[2017-01-08] MEDS: NORMAL SALINE 1000 ML 1,000 ML IV PRN (00:01)
[2017-01-08 05:32] LABS: ANION GAP 13 (5-19); BLOOD UREA NITROGEN 37 mg/dL (7-20); CALCIUM 8.1 mg/dL (8.4-10.2); CARBON DIOXIDE 20 mmol/L (22-30); CHLORIDE 99 mmol/L (98-107); CREATININE RESULT 0.97 mg/dL (0.52-1.25); GLUCOSE 173 mg/dL (75-110); POTASSIUM 5.6 mmol/L (3.6-5.0); SODIUM 132.2 mmol/L (137-145)
[2017-01-08] MEDS: DEXAMETHASONE 4 MG TABLET PO SCH ×3 (06:18→21:27)
[2017-01-08 09:09] LABS: ANION GAP 13 (5-19); BLOOD UREA NITROGEN 38 mg/dL (7-20); CALCIUM 7.9 mg/dL (8.4-10.2); CARBON DIOXIDE 17 mmol/L (22-30); CHLORIDE 102 mmol/L (98-107); CREATININE RESULT 0.91 mg/dL (0.52-1.25); GLUCOSE 116 mg/dL (75-110); POTASSIUM 5.4 mmol/L (3.6-5.0); SODIUM 131.8 mmol/L (137-145)
[2017-01-08] MEDS ORDERED: NORMAL SALINE 1000 ML 1,000 ML IV PRN (09:31)
[2017-01-08] MEDS ORDERED: KETOROLAC TROMETHAMINE INJ/PF 30 MG/1 ML SDV IV PRN (09:32)
[2017-01-08] MEDS: FOLIC ACID 1 MG TABLET PO SCH (09:37)
[2017-01-08] MEDS: CARVEDILOL 12.5 MG TABLET PO SCH ×2 (09:37→21:28)
[2017-01-08] MEDS: THIAMINE HCL 100 MG TABLET PO SCH (09:37)
[2017-01-08] MEDS: OXYCODONE HCL IR 5 MG TABLET PO PRN (09:38)
[2017-01-08] MEDS: OXYCODONE HCL SR 10 MG TABLET PO SCH ×2 (09:38→21:28)
[2017-01-08] MEDS: MULTIVITAMIN TABLET PO SCH (09:38)
[2017-01-08] MEDS: ASPIRIN 81 MG TABLET, ENT COATED PO SCH (09:38)
--- NOTE | 2017-01-08 13:56 | PDOC PROGRESS REPORT ---
Subjective Progress Note for:: 01/08/17 Subjective:: Patient reports that he's feeling much better than yesterday. He reports his headache is gone. Patient denies chest pain, shortness of breath, abdominal pain, nausea, vomiting , fevers, chills, diarrhea, constipation, headache, new onset weakness. Physical Exam Vital Signs: Temp Pulse Resp BP Pulse Ox 97.1 F 85 20 100/62 95 01/08/17 03:26 01/08/17 03:26 01/08/17 03:26 01/08/17 03:26 01/08/17 03:26 Intake & Output 01/07/17 01/08/17 01/09/17 06:59 06:59 06:59 Intake Total 4088 2270 Output Total 0 Balance 4088 2270 Weight 77.1 kg 78.4 kg Exam: General: Awake alert and oriented x3, no acute respiratory distress, pale, chronically ill-appearing HEENT: AT/NC, PERRL, EOMI, oropharynx is moist, pink, no scleral icterus, no conjunctival injection Neck: No JVD, trachea midline Chest: Clear to auscultation bilaterally, no wheezes rhonchi or rales; prolonged expiratory phase CV: Regular rate and rhythm, normal S1 and S2, no murmur, rub, or gallop Abdomen: Soft, nontender to palpation, nondistended, active bowel sounds; no rebound, rigidity, or guarding; + hepatomegaly Extremities: No cyanosis, clubbing or edema Neuro: Cranial nerves II through XII are grossly intact without focal deficits; awake alert and oriented x3 Psych: Normal mood and affect Results Laboratory Results: 01/06/17 05:18 01/08/17 03:58 01/07/17 01/08/17 10:50 03:58 Sodium 131.0 L 132.2 L Potassium 4.8 5.6 H Chloride 100 99 Carbon Dioxide 21 L 20 L Anion Gap 10 13 BUN 34 H 37 H Creatinine 0.88 0.97 Est GFR ( Amer) > 60 > 60 Est GFR (Non-Af Amer) > 60 > 60 Glucose 97 173 H Calcium 8.9 8.1 L Magnesium 1.8 12/30/16 06:49 NT-Pro-B Natriuret Pep 728 Impressions: Chest CT 12/30/16 00:00 IMPRESSION: Findings consistent with diffuse metastatic disease involving bulky mediastinal and right hilar lymphadenopathy as well as a few bilateral pulmonary nodules, multiple lesions in the liver, and multiple faint hypodensities in the thoracic spine. Guidance Needle Placement CT 01/02/17 00:00 IMPRESSION: CT GUIDED RIGHT LOBE LIVER BIOPSY PERFORMED ABOVE. PATHOLOGY PENDING. NO IMMEDIATE COMPLICATIONS. Liver Biopsy CT 01/02/17 07:00 IMPRESSION: CT GUIDED RIGHT LOBE LIVER BIOPSY PERFORMED ABOVE. PATHOLOGY PENDING. NO IMMEDIATE COMPLICATIONS. Body Scan Nuclear Medicine 01/04/17 00:00 IMPRESSION: Suspicious for metastatic disease, as above. Most notable in the skull. Head MRI 01/04/17 00:00 IMPRESSION: No acute intracranial abnormality. No evidence of brain metastasis. No enhancing mass lesions. Minimal chronic microvascular ischemic disease changes. Chest X-Ray 01/05/17 10:02 IMPRESSION: Stable fullness in the right hilum consistent with known malignancy. No new focal infiltrates are identified. 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 Appreciate oncology input into this. Patient is to have his third dose of chemotherapy on Monday. Anticipate discharge after that. Patient appears to be much improved from pain standpoint after the addition of dexamethasone and increasing his OxyContin. Patient also did well with Toradol and will place this when necessary IV. (2) Combined systolic and diastolic congestive heart failure Qualifiers: Congestive heart failure chronicity: acute on chronic Qualified Code (s): I50.43 - Acute on chronic combined systolic (congestive) and diastolic ( congestive) heart failure Is this a current diagnosis for this admission?: YesPlan: Currently euvolemic. Echo done on 12/30/2016 reveals: EF between 50 and 55%, mild diastolic dysfunction Patient has a prior history of cardiomyopathy with an EF in the 20s. Patient currently on Coreg, aspirin, and IV fluids. Will be judicious and monitoring IV fluids. (3) Hypercalcemia Is this a current diagnosis for this admission?: YesPlan: Corrected calcium is 8.78. Secondary to malignancy. This is now improving. Patient has received Zometa. Continuing IV fluids. (4) Hypomagnesemia Is this a current diagnosis for this admission?: YesPlan: Recheck in a.m. (5) Alcohol dependency Qualifiers: Substance use status: uncomplicated Qualified Code(s): F10.20 - Alcohol dependence, uncomplicated Is this a current diagnosis for this admission?: YesPlan: Ativan when necessary continue thiamine and folic acid. (6) Tobacco use disorder Is this a current diagnosis for this admission?: YesPlan: Encourage cessation nicotine patch. (7) ARF (acute renal failure) Qualifiers: Acute renal failure type: unspecified Qualified Code(s): N17.9 - Acute kidney failure, unspecified Is this a current diagnosis for this admission?: YesPlan: Secondary to hypercalcemia. Currently improved. (8) Hyperkalemia Is this a current diagnosis for this admission?: YesPlan: Resolved (9) Do not resuscitate Is this a current diagnosis for this admission?: YesPlan: Cousin surrogate decision maker
[2017-01-08] MEDS ORDERED: SODIUM POLYSTYRENE SULFONATE 15 GM/60 ML PO ONE (14:15)
[2017-01-08 20:56] LABS: ANION GAP 12 (5-19); BLOOD UREA NITROGEN 37 mg/dL (7-20); CALCIUM 7.5 mg/dL (8.4-10.2); CARBON DIOXIDE 18 mmol/L (22-30); CHLORIDE 104 mmol/L (98-107); CREATININE RESULT 0.85 mg/dL (0.52-1.25); GLUCOSE 159 mg/dL (75-110); SODIUM 134.3 mmol/L (137-145)
[2017-01-09] MEDS ORDERED: NORMAL SALINE 250 ML IV PRN (05:00)
[2017-01-09 05:29] LABS: ANION GAP 14 (5-19); BLOOD UREA NITROGEN 34 mg/dL (7-20); CALCIUM 7.4 mg/dL (8.4-10.2); CARBON DIOXIDE 16 mmol/L (22-30); CHLORIDE 106 mmol/L (98-107); CREATININE RESULT 0.78 mg/dL (0.52-1.25); GLUCOSE 92 mg/dL (75-110); MAGNESIUM 1.9 mg/dL (1.6-2.3); POTASSIUM 5.7 mmol/L (3.6-5.0); SODIUM 135.9 mmol/L (137-145)
[2017-01-09] MEDS: DEXAMETHASONE 4 MG TABLET PO SCH ×3 (06:16→21:46)
[2017-01-09] MEDS ORDERED: SODIUM POLYSTYRENE SULFONATE 15 GM/60 ML PO ONE (06:26)
[2017-01-09] MEDS ORDERED: LACTULOSE SYRUP 20 GM/30 ML UDCUP PO ONE (06:26)
[2017-01-09] MEDS ORDERED: DEXAMETHASONE SOD PHOSPHATE 10 MG in NORMAL SALINE 50 ML IV PRN (08:00)
[2017-01-09] MEDS ORDERED: NORMAL SALINE IV PRN (08:00)
[2017-01-09] MEDS ORDERED: ETOPOSIDE IV PRN (08:00)
[2017-01-09] MEDS: OXYCODONE HCL IR 5 MG TABLET PO PRN ×3 (08:48→18:37)
[2017-01-09] MEDS: FOLIC ACID 1 MG TABLET PO SCH (10:16)
[2017-01-09] MEDS: THIAMINE HCL 100 MG TABLET PO SCH (10:16)
[2017-01-09] MEDS: CARVEDILOL 12.5 MG TABLET PO SCH ×2 (10:16→21:46)
[2017-01-09] MEDS: MULTIVITAMIN TABLET PO SCH (10:17)
[2017-01-09] MEDS: ASPIRIN 81 MG TABLET, ENT COATED PO SCH (10:17)
[2017-01-09] MEDS: OXYCODONE HCL SR 10 MG TABLET PO SCH ×2 (10:17→21:45)
[2017-01-09] MEDS: GABAPENTIN 100 MG CAPSULE PO SCH ×2 (14:13→21:46)
[2017-01-09] MEDS: PROMETHAZINE HCL 25 MG TABLET PO PRN ×2 (14:43→18:37)
--- NOTE | 2017-01-09 15:45 | PDOC PROGRESS REPORT ---
Subjective Progress Note for:: 01/09/17 Subjective:: Patient reports that he's feeling much better than yesterday. He complains of back pain. Patient refused his Kayexalate yesterday. Patient denies chest pain, shortness of breath, abdominal pain, nausea, vomiting , fevers, chills, diarrhea, constipation, headache, new onset weakness. Physical Exam Vital Signs: Temp Pulse Resp BP Pulse Ox 97.4 F 82 20 134/82 H 96 01/09/17 03:52 01/09/17 03:52 01/09/17 03:52 01/09/17 03:52 01/09/17 03:52 Intake & Output 01/07/17 01/08/17 01/09/17 06:59 06:59 06:59 Intake Total 4088 2270 2404 Output Total 0 Balance 4088 2270 2404 Weight 77.1 kg 78.4 kg 76.8 kg Exam: General: Awake alert and oriented x3, no acute respiratory distress, pale, chronically ill-appearing HEENT: AT/NC, PERRL, EOMI, oropharynx is moist, pink, no scleral icterus, no conjunctival injection Neck: No JVD, trachea midline Chest: Clear to auscultation bilaterally, no wheezes rhonchi or rales; prolonged expiratory phase CV: Regular rate and rhythm, normal S1 and S2, no murmur, rub, or gallop Abdomen: Soft, nontender to palpation, nondistended, active bowel sounds; no rebound, rigidity, or guarding; + hepatomegaly Extremities: No cyanosis, clubbing or edema Neuro: Cranial nerves II through XII are grossly intact without focal deficits; awake alert and oriented x3 Psych: Normal mood and affect Results Laboratory Results: 01/06/17 05:18 01/09/17 03:49 01/08/17 01/08/17 01/09/17 08:32 20:25 03:49 Sodium 131.8 L 134.3 L 135.9 L Potassium 5.4 H 5.0 5.7 H Chloride 102 104 106 Carbon Dioxide 17 L 18 L 16 L Anion Gap 13 12 14 BUN 38 H 37 H 34 H Creatinine 0.91 0.85 0.78 Est GFR ( Amer) > 60 > 60 > 60 Est GFR (Non-Af Amer) > 60 > 60 > 60 Glucose 116 H 159 H 92 Calcium 7.9 L 7.5 L 7.4 L Magnesium 1.9 12/30/16 06:49 NT-Pro-B Natriuret Pep 728 Impressions: Chest CT 12/30/16 00:00 IMPRESSION: Findings consistent with diffuse metastatic disease involving bulky mediastinal and right hilar lymphadenopathy as well as a few bilateral pulmonary nodules, multiple lesions in the liver, and multiple faint hypodensities in the thoracic spine. Guidance Needle Placement CT 01/02/17 00:00 IMPRESSION: CT GUIDED RIGHT LOBE LIVER BIOPSY PERFORMED ABOVE. PATHOLOGY PENDING. NO IMMEDIATE COMPLICATIONS. Liver Biopsy CT 01/02/17 07:00 IMPRESSION: CT GUIDED RIGHT LOBE LIVER BIOPSY PERFORMED ABOVE. PATHOLOGY PENDING. NO IMMEDIATE COMPLICATIONS. Body Scan Nuclear Medicine 01/04/17 00:00 IMPRESSION: Suspicious for metastatic disease, as above. Most notable in the skull. Head MRI 01/04/17 00:00 IMPRESSION: No acute intracranial abnormality. No evidence of brain metastasis. No enhancing mass lesions. Minimal chronic microvascular ischemic disease changes. Chest X-Ray 01/05/17 10:02 IMPRESSION: Stable fullness in the right hilum consistent with known malignancy. No new focal infiltrates are identified. 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 Appreciate oncology input into this. Patient is to have his third dose of chemotherapy today. Anticipate discharge tomorrow. Patient appears to be much improved from pain standpoint after the addition of dexamethasone and increasing his OxyContin. Patient also did well with Toradol and will place this when necessary IV. (2) Combined systolic and diastolic congestive heart failure Qualifiers: Congestive heart failure chronicity: acute on chronic Qualified Code (s): I50.43 - Acute on chronic combined systolic (congestive) and diastolic ( congestive) heart failure Is this a current diagnosis for this admission?: YesPlan: Currently euvolemic. Echo done on 12/30/2016 reveals: EF between 50 and 55%, mild diastolic dysfunction Patient has a prior history of cardiomyopathy with an EF in the 20s. Patient currently on Coreg, aspirin, and IV fluids. Will be judicious and monitoring IV fluids. (3) Hypercalcemia Is this a current diagnosis for this admission?: YesPlan: Corrected calcium is 8.78. Secondary to malignancy. This is now improving. Patient has received Zometa. Continuing IV fluids. (4) Alcohol dependency Qualifiers: Substance use status: uncomplicated Qualified Code(s): F10.20 - Alcohol dependence, uncomplicated Is this a current diagnosis for this admission?: YesPlan: Ativan when necessary continue thiamine and folic acid. (5) Tobacco use disorder Is this a current diagnosis for this admission?: Yes (6) ARF (acute renal failure) Qualifiers: Acute renal failure type: unspecified Qualified Code(s): N17.9 - Acute kidney failure, unspecified Is this a current diagnosis for this admission?: YesPlan: Secondary to hypercalcemia. Currently improved. (7) Hyperkalemia Is this a current diagnosis for this admission?: YesPlan: Patient has hyperkalemia again. Patient did refuse Estrace dose of Kayexalate, but agrees to takes it today. Concern for tumor lysis syndrome considered. Continue IV fluids and give Kayexalate BMP this evening. (8) Do not resuscitate Is this a current diagnosis for this admission?: Yes (9) Hypomagnesemia Is this a current diagnosis for this admission?: Yes - Time Time Spent with patient: 25-34 minutes Medications reviewed and adjusted accordingly: Yes Anticipated discharge: Home Within: within 24 hours
[2017-01-09 16:13] LABS: ANION GAP 14 (5-19); BLOOD UREA NITROGEN 39 mg/dL (7-20); CALCIUM 7.6 mg/dL (8.4-10.2); CARBON DIOXIDE 18 mmol/L (22-30); CHLORIDE 104 mmol/L (98-107); CREATININE RESULT 0.77 mg/dL (0.52-1.25); GLUCOSE 103 mg/dL (75-110); POTASSIUM 5.6 mmol/L (3.6-5.0); SODIUM 135.9 mmol/L (137-145)
--- NOTE | 2017-01-09 18:20 | PDOC PROGRESS REPORT ---
Subjective Progress Note for:: 01/09/17 Subjective:: Patient is feeling much better today and has a number of questions. He notes still some persistent left flank and "barbed" sensations down his left leg but overall his PS is better. He just has questions with regards to his treatment plan, etc. Physical Exam Vital Signs: Temp Pulse Resp BP Pulse Ox 97.8 F 87 19 116/74 96 01/09/17 15:22 01/09/17 15:22 01/09/17 15:22 01/09/17 15:22 01/09/17 15:22 Intake & Output 01/08/17 01/09/17 01/10/17 06:59 06:59 06:59 Intake Total 2270 2789 910 Output Total 0 Balance 2270 2789 910 Weight 78.4 kg 76.8 kg General appearance: PRESENT: no acute distress Head exam: PRESENT: normocephalic Eye exam: PRESENT: EOMI, PERRLA Respiratory exam: PRESENT: clear to auscultation [email or web address] Cardiovascular exam: PRESENT: RRR GI/Abdominal exam: PRESENT: normal bowel sounds, organolmegaly, tenderness - over the liver Neurological exam: PRESENT: alert, awake, oriented to person, oriented to place , oriented to time, oriented to situation, CN II-XII grossly intact Results Laboratory Results: 01/06/17 05:18 01/09/17 15:34 01/08/17 01/09/17 01/09/17 20:25 03:49 15:34 Sodium 134.3 L 135.9 L 135.9 L Potassium 5.0 5.7 H 5.6 H Chloride 104 106 104 Carbon Dioxide 18 L 16 L 18 L Anion Gap 12 14 14 BUN 37 H 34 H 39 H Creatinine 0.85 0.78 0.77 Est GFR ( Amer) > 60 > 60 > 60 Est GFR (Non-Af Amer) > 60 > 60 > 60 Glucose 159 H 92 103 Calcium 7.5 L 7.4 L 7.6 L Magnesium 1.9 01/07/17 01:00 Clean Catch Midstream Urine Culture - Final 5,000 col/ml 12/30/16 06:49 NT-Pro-B Natriuret Pep 728 Impressions: Chest CT 12/30/16 00:00 IMPRESSION: Findings consistent with diffuse metastatic disease involving bulky mediastinal and right hilar lymphadenopathy as well as a few bilateral pulmonary nodules, multiple lesions in the liver, and multiple faint hypodensities in the thoracic spine. Guidance Needle Placement CT 01/02/17 00:00 IMPRESSION: CT GUIDED RIGHT LOBE LIVER BIOPSY PERFORMED ABOVE. PATHOLOGY PENDING. NO IMMEDIATE COMPLICATIONS. Liver Biopsy CT 01/02/17 07:00 IMPRESSION: CT GUIDED RIGHT LOBE LIVER BIOPSY PERFORMED ABOVE. PATHOLOGY PENDING. NO IMMEDIATE COMPLICATIONS. Body Scan Nuclear Medicine 01/04/17 00:00 IMPRESSION: Suspicious for metastatic disease, as above. Most notable in the skull. Head MRI 01/04/17 00:00 IMPRESSION: No acute intracranial abnormality. No evidence of brain metastasis. No enhancing mass lesions. Minimal chronic microvascular ischemic disease changes. Chest X-Ray 01/05/17 10:02 IMPRESSION: Stable fullness in the right hilum consistent with known malignancy. No new focal infiltrates are identified. Assessment & Plan - Diagnosis (1) ARF (acute renal failure) Qualifiers: Acute renal failure type: unspecified Qualified Code(s): N17.9 - Acute kidney failure, unspecified Is this a current diagnosis for this admission?: YesPlan: REsolved (2) Hyperkalemia Is this a current diagnosis for this admission?: Yes (3) Metastatic malignant neoplasm of unknown primary site Is this a current diagnosis for this admission?: YesPlan: Had a lengthy discussion with regards to his diagnosis and extent and therapy. We discussed treatment primarily with chemo but given his symptoms, will consult Dr. Alanis for consideration of palliative XRT. We discussed that this may require an MRI of his Thoracic and lumbar spine which he is willing to undergo. In the meantime, we will continue his steroids and add on Neurontin to see if helps his overall symptoms. (4) Alcohol dependency Qualifiers: Substance use status: uncomplicated Qualified Code(s): F10.20 - Alcohol dependence, uncomplicated Is this a current diagnosis for this admission?: Yes (5) Tobacco use disorder Is this a current diagnosis for this admission?: Yes - Time Time Spent with patient: 35 or more minutes Medications reviewed and adjusted accordingly: Yes
--- NOTE | 2017-01-09 22:40 | Progress Note ---
Provider Note Provider Note: Palliaitve care follow up note: Visit 01/09/17 3:20- 3:40 pm Follow up visit with this 51 year old patient who has recently been dignosed with metastatic lung cancer and has been seen by Radiation Oncology this afternoon. Mr. Rose is awake and alert, and a little anxious. He tells me his pain is much better but he still has some discomfot in his right abdomen and back area. He says he is hungry because he has been having to eat broth and just now got lunch tray with "real food". He was able to tell me that his biopsy showed that he has cancer "all over" and he shrugged and commented "that's how it goes". He said he is hoping to have radiation to hlep and may need chemo. He reports that he was supposed to go home tomorrow, but probably wont get to now. WHen asked if he thought he could manage at home, he said yes, that he has a cousin to help him and "some lady" is helping him get caregivers to help him at home. Whn asked how he feels about this illness and prospective treatment, he said he knew something was wrong from the pain he has been haviing. He is pleased with the pain relief he is getting with meds and is hoping for further releif. He reports having frined but denies having much family to help him, but he is not worried about it Objectively, Patient appears anxious and more onccerned than he admits to being. He is breathing easily but has mild conversational dyspnea. He says he is very tired because he gets no sleep here in the hospital. His conversation is a bit disjointed, but he appears alert and oriented. Pain remains in right abd and back and he says he has some pain in legs. Color is pale but no acute distress noted. He was very focused on eating his lunch. Plan: Mr. Rose is working with acceptance of his diagnosis and treatment options. He says he understands the chemo and radiation as discussed and wants "whatever it takes to make him feel better". He is anxious to go home, but realizes he cannot do that soon. DUe to patients anxiety, and hunger, I told him I would come back another time to tawny what he needs for home and what his plans and concernes are. He agreed and said he wante dto nap after lunch. No acute needs at present. Chart reviewed and notes appreciated. Will follow.
[2017-01-10] MEDS: ONDANSETRON HCL INJ/PF 4 MG/2 ML SDV IV PRN (03:25)
[2017-01-10 04:59] LABS: HEMATOCRIT 31.5 % (37.9-51.0); HEMOGLOBIN 10.7 g/dL (13.5-17.0); HGB HCT DIFFERENCE 0.6; MEAN CORPUSCULAR HEMOGLOBIN 34.8 pg (27.0-33.4); MEAN CORPUSCULAR HGB CONC 34.1 g/dL (32.0-36.0); MEAN CORPUSCULAR VOLUME 102 fl (80-97); RED BLOOD COUNT 3.08 10^6/uL (4.35-5.55); WHITE BLOOD COUNT 14.4 10^3/uL (4.0-10.5)
[2017-01-10] MEDS ORDERED: PEGFILGRASTIM INJ 6 MG/0.6 ML DISP.SYRIN SUBCUT PRN (05:00)
[2017-01-10 05:19] LABS: ALANINE AMINOTRANSFERASE 117 U/L (21-72); ALBUMIN 2.9 g/dL (3.5-5.0); ALKALINE PHOSPHATASE 453 U/L (38-126); ANION GAP 14 (5-19); ASPARTATE AMINO TRANSFERASE 653 U/L (17-59); BILIRUBIN,DIRECT 0.9 mg/dL (0.0-0.4); BILIRUBIN,TOTAL 1.1 mg/dL (0.2-1.3); BLOOD UREA NITROGEN 36 mg/dL (7-20); CALCIUM 7.2 mg/dL (8.4-10.2); CARBON DIOXIDE 19 mmol/L (22-30); CHLORIDE 106 mmol/L (98-107); GLUCOSE 147 mg/dL (75-110); TOTAL PROTEIN 6.5 g/dL (6.3-8.2)
[2017-01-10] MEDS: OXYCODONE HCL IR 5 MG TABLET PO PRN ×4 (05:29→15:52)
[2017-01-10] MEDS: DEXAMETHASONE 4 MG TABLET PO SCH ×2 (05:30→14:36)
[2017-01-10] MEDS: GABAPENTIN 100 MG CAPSULE PO SCH ×2 (05:30→14:36)
[2017-01-10 05:33] LABS: POTASSIUM 4.5 mmol/L (3.6-5.0)
[2017-01-10] MEDS: CARVEDILOL 12.5 MG TABLET PO SCH (10:36)
[2017-01-10] MEDS: MULTIVITAMIN TABLET PO SCH (10:37)
[2017-01-10] MEDS: FOLIC ACID 1 MG TABLET PO SCH (10:37)
[2017-01-10] MEDS: ASPIRIN 81 MG TABLET, ENT COATED PO SCH (10:38)
[2017-01-10] MEDS: THIAMINE HCL 100 MG TABLET PO SCH (10:38)
[2017-01-10] MEDS: OXYCODONE HCL SR 10 MG TABLET PO SCH (10:38)
[2017-01-10] MEDS: PROMETHAZINE HCL 25 MG TABLET PO PRN (12:35)
[2017-01-10 12:46] VITALS: BP 115/76
--- NOTE | 2017-01-10 16:10 | PDOC DISCHARGE SUMMARY ---
General - Admit/Disc Date/PCP Admission Date/Primary Care Provider: 12/29/16 22:55 Discharge Date: 01/10/17 - Discharge Diagnosis (1) Small cell lung cancer Is this a current diagnosis for this admission?: Yes (2) Combined systolic and diastolic congestive heart failure Is this a current diagnosis for this admission?: Yes (3) Hypercalcemia Is this a current diagnosis for this admission?: Yes (4) Alcohol dependency Is this a current diagnosis for this admission?: Yes (5) Tobacco use disorder Is this a current diagnosis for this admission?: Yes (6) ARF (acute renal failure) Is this a current diagnosis for this admission?: Yes (7) Hyperkalemia Is this a current diagnosis for this admission?: Yes (8) Hypomagnesemia Is this a current diagnosis for this admission?: Yes - Additional Information Resuscitation Status: Full Code Discharge Diet: Regular Discharge Activity: Activity As Tolerated, Balance Activity w/Rest, Slowly Increase Activity Home Medications: Aspirin [Aspirin EC] 81 mg PO DAILY 12/29/16 Carvedilol [Coreg 12.5 mg Tablet] 12.5 mg PO Q12 #60 tablet 01/10/17 Dexamethasone [Decadron 4 mg Tablet] 4 mg PO Q8 #90 tablet 01/10/17 Folic Acid [Folvite 1 mg Tablet] 1 mg PO DAILY #90 tablet 01/10/17 Gabapentin [Neurontin 100 mg Capsule] 100 mg PO Q8 #90 capsule 01/10/17 Ranitidine HCl [Heartburn Relief 150] 150 mg PO DAILYP PRN #60 tablet 01/10/17 Thiamine HCl [Thiamine 100 mg Tablet] 100 mg PO DAILY #90 tablet 01/10/17 History of Present Illness History of Present Illness: Please see H&P for full history of present illness Hospital Course Hospital Course: Patient is a 51yo male with a history of severe congestive heart failure with primary of 20%, tobacco abuse, chronic alcohol use, hypertension, and had recently discovered metastatic malignancy of unknown primary to the liver who presented to the ED with recently noted liver masses and hepatomegaly. Patient was found to also be in renal failure at this time with a creatinine of 3.3 and a potassium of 6. Patient was apparently treated with IV fluids, D50, and Kayexalate, and nephrology consultation. Patient was found to have hypercalcemia with a calcium of 12. Patient was started on Solu-Medrol in addition to aggressive hydration. Repeat echocardiogram was performed and patient was found to have an EF 50-55%. CT of the chest revealed pulmonary nodules and abnormal mediastinal nodes. CT-guided biopsy of the liver was performed on 01/02/17 after stabilization of patient's potassium and acute renal failure and pathology returned as high-grade neuroendocrine likely secondary to lung. Patient received his first 3 chemotherapy treatments here in house with etoposide. We did have some difficulty initially controlling patient's pain, but this was improved with the addition of Decadron and increasing his OxyContin and oxycodone. Patient continued to have some back pain and bone scan revealed widely metastatic disease including the thoracic spine. Patient was evaluated by radiation oncology and set up for outpatient radiation. Patient did have a refractory headache secondary to bony metastasis of the skull which was improved after initiation of Decadron. MRI of the head did not reveal any intracranial lesions. Patient has been greatly improved and the remainder of his hospital stay was unremarkable. Patient was discharged today in stable condition. Physical Exam Vital Signs: Temp Pulse Resp BP Pulse Ox 98.2 F 95 20 115/76 98 01/10/17 12:44 01/10/17 12:44 01/10/17 12:44 01/10/17 12:44 01/10/17 12:44 Intake & Output 01/09/17 01/10/17 01/11/17 06:59 06:59 06:59 Intake Total 2789 2436 1100 Balance 2789 2436 1100 Weight 76.8 kg 77.3 kg Exam: General: Awake alert and oriented x3, no acute respiratory distress, chronically ill-appearing HEENT: AT/NC, PERRL, EOMI, oropharynx is moist, pink, no scleral icterus, no conjunctival injection Neck: No JVD, trachea midline Chest: Clear to auscultation bilaterally, no wheezes rhonchi or rales; prolonged expiratory phase CV: Regular rate and rhythm, normal S1 and S2, no murmur, rub, or gallop Abdomen: Soft, nontender to palpation, nondistended, active bowel sounds; no rebound, rigidity, or guarding; + hepatomegaly Extremities: No cyanosis, clubbing or edema Neuro: Cranial nerves II through XII are grossly intact without focal deficits; awake alert and oriented x3 Psych: Normal mood and affect Results Laboratory Results: 01/10/17 04:08 01/10/17 04:08 01/09/17 01/10/17 01/10/17 15:34 04:08 04:08 WBC 14.4 H RBC 3.08 L Hgb 10.7 L Hct 31.5 L MCV 102 H MCH 34.8 H MCHC 34.1 RDW 14.0 Plt Count 211 Sodium 135.9 L 139.0 Potassium 5.6 H 4.5 D Chloride 104 106 Carbon Dioxide 18 L 19 L Anion Gap 14 14 BUN 39 H 36 H Creatinine 0.77 0.70 Est GFR ( Amer) > 60 > 60 Est GFR (Non-Af Amer) > 60 > 60 Glucose 103 147 H Calcium 7.6 L 7.2 L Total Bilirubin 1.1 AST 653 H ALT 117 H Alkaline Phosphatase 453 H Total Protein 6.5 Albumin 2.9 L 12/30/16 06:49 NT-Pro-B Natriuret Pep 728 Impressions: Chest CT 12/30/16 00:00 IMPRESSION: Findings consistent with diffuse metastatic disease involving bulky mediastinal and right hilar lymphadenopathy as well as a few bilateral pulmonary nodules, multiple lesions in the liver, and multiple faint hypodensities in the thoracic spine. Guidance Needle Placement CT 01/02/17 00:00 IMPRESSION: CT GUIDED RIGHT LOBE LIVER BIOPSY PERFORMED ABOVE. PATHOLOGY PENDING. NO IMMEDIATE COMPLICATIONS. Liver Biopsy CT 01/02/17 07:00 IMPRESSION: CT GUIDED RIGHT LOBE LIVER BIOPSY PERFORMED ABOVE. PATHOLOGY PENDING. NO IMMEDIATE COMPLICATIONS. Body Scan Nuclear Medicine 01/04/17 00:00 IMPRESSION: Suspicious for metastatic disease, as above. Most notable in the skull. Head MRI 01/04/17 00:00 IMPRESSION: No acute intracranial abnormality. No evidence of brain metastasis. No enhancing mass lesions. Minimal chronic microvascular ischemic disease changes. Chest X-Ray 01/05/17 10:02 IMPRESSION: Stable fullness in the right hilum consistent with known malignancy. No new focal infiltrates are identified. Lumbar Spine MRI 01/09/17 00:00 IMPRESSION: 1. Moderate- severe thecal sac compression at the L5-S1 level due to epidural lipomatosis. 2. Numerous enhancing bone lesions and partially imaged hepatic lesions consistent with metastatic disease. 3. Mild-moderate pathologic compression fracture at the L3 level. Thoracic Spine MRI 01/09/17 00:00 IMPRESSION: No significant thecal sac or nerve root compression at the thoracic levels. Numerous enhancing lesions throughout the vertebral bodies, mediastinum, and liver consistent with metastatic disease. Qualifiers PATEINT BEING DISCHARGED WITH ANY OF THE FOLLOWING DIAGNOSIS?: Heart Failure HF Pt being discharged on ACEI for LVEF less than 40%?: No Reason(s) for not prescribing ACEI:: Contraindicated - Hyperkalemia HF Pt being discharged on ARBS for LVEF less than 40%?: No Reason(s) for not prescribing ARBS:: Contraindicated - Hyperkalemia HF Pt with Afib discharged with Warfarin?: No Reason(s) for not prescribing Warfarin:: Not indicated - No A. fib HF Pt discharged on evidence-based Beta Bhumi:: Yes Plan Time Spent: Greater than 30 Minutes
== END 2017-01-10 16:07 | disposition home health service (06) | DRG 682 ==
LOC: ER 16:15 → UNDOADMIN 20:31 → EH 20:31 → 3N 23:29
PROVIDERS: ADMIT Family Medicine; ATTEND Family Medicine
PROC: 0FB13ZX Excision of Right Lobe Liver, Percutaneous Approach, Diagnostic (ICD-10-PCS; principal; 2017-01-02)
DX: N17.9 Acute kidney failure, unspecified (principal); I50.43 Acute on chronic combined systolic (congestive) and diastolic (congestive) heart failure; C34.90 Malignant neoplasm of unspecified part of unspecified bronchus or lung; C78.7 Secondary malignant neoplasm of liver and intrahepatic bile duct; C79.51 Secondary malignant neoplasm of bone; I42.9 Cardiomyopathy, unspecified; E87.2 Acidosis; E87.5 Hyperkalemia; I11.0 Hypertensive heart disease with heart failure; E83.52 Hypercalcemia; F10.20 Alcohol dependence, uncomplicated; E83.42 Hypomagnesemia; C80.1 Malignant (primary) neoplasm, unspecified; I95.9 Hypotension, unspecified; D64.9 Anemia, unspecified; M19.90 Unspecified osteoarthritis, unspecified site; E86.0 Dehydration; F17.210 Nicotine dependence, cigarettes, uncomplicated; E83.39 Other disorders of phosphorus metabolism; E07.9 Disorder of thyroid, unspecified; J44.9 Chronic obstructive pulmonary disease, unspecified; Z66 Do not resuscitate; Z79.82 Long term (current) use of aspirin; Z79.899 Other long term (current) drug therapy; Z80.9 Family history of malignant neoplasm, unspecified
CPT/HCPCS: 36415; 47000; 70553; 71010; 71250; 72157; 72158; 77012; 78306; 80048; 80053; 81001; 82570; 83735; 83880; 84100; 84132; 84300; 84443; 85025; 85027; 85610; 85730; 87040; 87086; 88305; 88341; 88342; 93005; 93010; 93306; 94640; 96361; 96365; 96367; 96375; 96413; 96415; 99291; 99292; A9503; A9577; J0610; J1100; J1200; J1644; J1815; J1885; J2250; J2405; J2505; J2765; J3010; J3475; J3489; J3490; J7030; J7040; J7050; J7060; J7620; J9045; J9181; Q9969

== ENCOUNTER → 2017-02-17 | Outpatient (CLI) | payer BC, MEDICAID ==
--- NOTE | 2017-02-17 15:32 | RADIOLOGY REPORT (SQ) ---
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 TECHNIQUE: Dynamic and static grayscale images acquired of the localized site of clinical concern an d recorded on PACS. Additional selected color Doppler and spectral images recorded. SITE OF CONCERN: Right posterior arm LIMITATIONS: None. FINDINGS: SKIN AND SUBCUTANEOUS TISSUES: At the site of the palpable abnormality, a complex area is identified measuring 3.4 x 3.2 x 1.0 cm in diameters. No discrete fluid collections are identified. There are adjacent edematous soft tissues. The appearance would be atypical for a lipoma. The poss ibility of an infectious process should be considered. The possibility of a mass cannot be completely excluded. DEEP SOFT TISSUES/MUSCLES: No masses. No fluid collections. No edema. VASCULAR: No increased or decreased vascularity. No occlusions. OTHER: No other significant finding. IMPRESSION: At the site of the palpable abnormality a complex area is identified as noted above. Di fferential possibilities are as noted above. Clinical correlation is recommended. TECHNICAL DOCUMENTATION: JOB ID: [id number] [employer]- All Rights Reserved
== END ==
LOC: RAD 13:44
PROVIDERS: ATTEND Specialist
DX: D17.4 Benign lipomatous neoplasm of intrathoracic organs (principal)
CPT/HCPCS: 76882

== ENCOUNTER 2017-03-01 03:03 | Inpatient (IN) | payer BC, MEDICAID ==
[2017-03-01] MEDS ORDERED: HYDROMORPHONE HCL INJ/PF 2 MG/ML AMPULE IV ONE ×2 (03:12→05:42)
--- NOTE | 2017-03-01 03:14 | ER Document Report ---
ED General <ROJELIO WALL - Last Filed: 03/01/17 07:38> - General TRAVEL OUTSIDE OF THE [place] IN LAST 30 DAYS: No <ORESTES PRINCE - Last Filed: 03/02/17 00:11> - General Stated Complaint: RESPIRATORY DISTRESS Time Seen by Provider: 03/01/17 03:11 Notes: Patient is a 57-year-old male with a history of lung cancer metastasis. He is currently on chemotherapy. He is followed by Dr. Gardner, oncologist. His primary care doctor is Dr. Cuellar. It is with onset of abdominal pain is worse in the left side. When she arrived to the ER he had large diarrheal bowel movement that is maroon colored stool that is guaiac positive. Complaint from the paramedics was rents were distressed and chest pain. On my exam his pain is mostly in the abdomen that is where he is complaining of pain. He seems to be splinting his respirations due to severe pain. He denies recent fevers. She received chemotherapy yesterday. (ORESTES PRINCE) - Related Data Allergies/Adverse Reactions: No Known Allergies Allergy (Verified 12/29/16 16:59) Home Medications: Current Home Medications Oxycodone HCl [Oxy-Ir 5 mg Tablet] 5 mg PO 03/01/17 [History] Oxycodone HCl [Oxycontin] 20 mg PO 03/01/17 [History] Past Medical History - Social History Smoking Status: Never Smoker Frequency of alcohol use: None Drug Abuse: None Family History: Reviewed & Not Pertinent, Malignancy - Past Medical History Cardiac Medical History: Reports: Hx Congestive Heart Failure - Ejection fraction 20%, Hx Hypertension Denies: Hx DVT - Systolic, Hx Heart Attack, Hx Hypercholesterolemia, Hx Pulmonary Embolism Pulmonary Medical History: Denies: Hx Asthma, Hx COPD Neurological Medical History: Denies: Hx Seizures Endocrine Medical History: Denies: Hx Diabetes Mellitus Type 1, Hx Diabetes Mellitus Type 2, Hx Hyperthyroidism, Hx Hypothyroidism Renal/ Medical History: Denies: Hx Peritoneal Dialysis GI Medical History: Denies: Hx Cirrhosis, Hx Gastroesophageal Reflux Disease, Hx Hepatitis Musculoskeltal Medical History: Denies Hx Arthritis Psychiatric Medical History: Denies: Hx Depression Infectious Medical History: Denies: Hx Hepatitis Past Surgical History: Reports: Hx Orthopedic Surgery - Right hip surgery - Immunizations Hx Diphtheria, Pertussis, Tetanus Vaccination: Yes <ORESTES PRINCE - Last Filed: 03/02/17 00:11> Review of Systems <ROJELIO WALL - Last Filed: 03/01/17 07:38> <ORESTES PRINCE - Last Filed: 03/02/17 00:11> - Review of Systems Notes: My Normal Review Basic REVIEW OF SYSTEMS: CONSTITUTIONAL : Denies fever, chills, or sweats. Denies recent illness. EENT: Denies eye, ear, throat, or mouth pain or symptoms. Denies nasal or sinus congestion. CARDIOVASCULAR: Some Chest pressure RESPIRATORY: Denies cough, cold, or chest congestion. Denies shortness of breath, difficulty breathing, or wheezing. GASTROINTESTINAL: severe abdominal pain. Has diarrhea.: MUSCULOSKELETAL: Denies neck or back pain or joint pain or swelling. SKIN: Denies rash or skin lesions. HEMATOLOGIC : Denies easy bruising or bleeding. NEUROLOGICAL: Denies altered mental status or loss of consciousness. Denies headache. Denies weakness or paralysis or loss of use of either side. Denies problems with gait or speech. Denies sensory or motor loss. PSYCHIATRIC: Denies anxiety or stress or depression. ALL OTHER SYSTEMS REVIEWED AND NEGATIVE. (ORESTES PRINCE) Physical Exam <ROJELIO WALL - Last Filed: 03/01/17 07:38> <ORESTES PRINCE - Last Filed: 03/02/17 00:11> - Vital signs Vitals: Resp Pulse Ox 29 H 94 03/01/17 03:06 03/01/17 03:06 - Notes Notes: General Appearance: Well nourished, alert, cooperative, moderate acute distress , severe obvious discomfort. Vitals: reviewed, See vital signs table. Head: no swelling or tenderness to the head Eyes: PERRL, EOMI, Conjuctiva clear Mouth: No decreasd moisture Neck: Supple, no neck tenderness, No thyromegaly Lungs: No wheezing, No rales, No rhonci, No accessory muscle use, good air exchange bilaterally. Heart: tachycardic rate, Regular rythm, No murmur, no rub Abdomen: Normal BS, soft, No rigidity, abdomen is soft and more guarding with palpation and severe pain mostly in the left side to palpation., Large amount of maroon colored stool in bed macias. Extremities: strength 5/5 in all extremities, good pulses in all extremities, no swelling or tenderness in the extremities, no edema. Skin: warm, dry, appropriate color, no rash Neuro: speech clear, oriented x 3, normal affect, responds appropriately to questions. (ORESTES PRINCE) Course - Laboratory Result Diagrams: 03/01/17 03:50 03/01/17 03:30 <ROJELIO WALL - Last Filed: 03/01/17 07:38> - Laboratory Result Diagrams: 03/01/17 21:15 03/01/17 20:07 <ORESTES PRINCE - Last Filed: 03/02/17 00:11> - Re-evaluation Re-evalutation: 03/01/17 03:46 Patient's hemoglobin is come back less than 5. Lab does want to redraw. I will allow them to redraw the hemoglobin; however, I suspect that this number probably is real. I have ordered blood to be crossmatched. I suspect his numbers Relpax patient is pale and has blood in his stool. He is feeling improved with the pain medication. He still has some discomfort but his heart rate is much improved. He is not hypotensive. I have ordered a quick abdominal series to make sure there is no evidence of free air. Once I see his kidney function is okay I will order a CT scan to better evaluate his bowel. 03/01/17 04:43 Patient's has a lactic acid of over 12. He is severely metabolic acidosis. He got hyperkalemia. He is C. difficile positive. I have concerns for possible ischemic gut. I have ordered an emergent CTA of the abdomen. I have Ordered sodium bicarb bolus as well as a drip. I will also order insulin and glucose to help treat his potassium. 03/01/17 05:28 Patient is currently in CT scanner. I have called Dr. Padilla, general surgeon, informed him of the patient's lab my concern that he may have chemotherapy- induced ischemic colitis. His C. difficile is positive but I am concerned with this sudden onset of pain and diarrhea that has blood in it with his elevated lactic acid. Dr. Waterman says he will be here shortly to evaluate the patient. Patient is currently undergoing blood transfusion. No free air on the chest xray. I did start him on the bicarb drip. Flagy has been ordered. 03/01/17 06:43 (ORESTES PRINCE) - Vital Signs Vital signs: Temp Pulse Resp BP Pulse Ox 96.3 F L 101 H 12 111/72 95 03/01/17 18:55 03/01/17 20:00 03/01/17 22:00 03/01/17 21:55 03/01/17 22:00 - Laboratory Laboratory results interpreted by me: 03/01/17 03/01/17 03/01/17 03:15 03:30 03:50 WBC 18.9 H RBC 1.39 L Hgb 4.5 L* Hct 14.9 L* MCV 108 H MCHC 30.3 L RDW 20.5 H Seg Neuts % (Manual) 99 H Lymphocytes % (Manual) 1 L Monocytes % (Manual) 0 L Abs Neuts (Manual) 18.7 H Abs Lymphs (Manual) 0.2 L Abs Monocytes (Manual) 0.0 L PT 16.2 H Sodium 135.2 L Potassium 7.3 H* Carbon Dioxide 10 L* Anion Gap 20 H BUN 62 H Lactic Acid Calcium 8.0 L Direct Bilirubin 0.6 H AST 253 H Alkaline Phosphatase 353 H Creatine Kinase 763 H Total Protein 5.7 L Albumin 2.5 L Lipase 340.1 H Crossmatch 03/01/17 03/01/17 03:50 03:50 WBC RBC Hgb Hct MCV MCHC RDW Seg Neuts % (Manual) Lymphocytes % (Manual) Monocytes % (Manual) Abs Neuts (Manual) Abs Lymphs (Manual) Abs Monocytes (Manual) PT Sodium Potassium Carbon Dioxide Anion Gap BUN Lactic Acid 12.9 H Calcium Direct Bilirubin AST Alkaline Phosphatase Creatine Kinase Total Protein Albumin Lipase Crossmatch See Detail - EKG Interpretation by Me Additional EKG results interpreted by me: 03/01/17 03:14 EKG is reviewed and interpreted by me. EKG shows sinus tachycardia with a rate of [address] segment elevation or depression. No ischemic T-wave inversions. KS interval, QRS duration, QTc intervals are within normal range. Old EKG for comparison is from January 02, 2017. (ORESTES PRINCE) - Transfer of Care Notes: 03/01/17 06:[address] Waterman again. He is going to evaluate the patient. He says he will begin 15 minutes. He requests that I did place a Willingham catheter for strict output monitoring. He recommends further fluid boluses. Abdomen continues to be tender to palpation. Intermittently he does have some firmness to the abdomen. Since improved some with pain medication but he still has a lot of guarding. (ORESTES PRINCE) Critical Care Note <ROJELIO WALL - Last Filed: 03/01/17 07:38> - Critical Care Note Total time excluding time spent on procedures (mins): 90 <ORESETS PRINCE - Last Filed: 03/02/17 00:11> - Critical Care Note Comments: Critical care time for this patient not including time spent procedures approximately 90 minutes due to management of what appears to be bowel ischemia as well as management of severe anemia, frequent re-evaluations, discussion with family and specialist. (ORESTES PRINCE) Discharge - Discharge Admitting Provider: [facility] - Paula [facility]ikal Unit Admitted: ICU <ROJELIO WALL - Last Filed: 03/01/17 07:38> <ORESTES PRINCE - Last Filed: 03/02/17 00:11> - Discharge Clinical Impression: Hyperkalemia, Metabolic acidosis, C. difficile colitis Small cell lung cancer Qualifiers: Laterality: unspecified laterality Qualified Code(s): C34.90 - Malignant neoplasm of unspecified part of unspecified bronchus or lung
[2017-03-01] MEDS ORDERED: NORMAL SALINE 250 ML IV PRN ×3 (03:37→07:40)
[2017-03-01 04:18] LABS: TROPONIN I < 0.012 ng/mL
[2017-03-01 04:19] LABS: ALANINE AMINOTRANSFERASE 71 U/L (21-72); ALBUMIN 2.5 g/dL (3.5-5.0); ALKALINE PHOSPHATASE 353 U/L (38-126); ASPARTATE AMINO TRANSFERASE 253 U/L (17-59); BILIRUBIN,DIRECT 0.6 mg/dL (0.0-0.4); BILIRUBIN,TOTAL 0.7 mg/dL (0.2-1.3); BLOOD UREA NITROGEN 62 mg/dL (7-20); CREATINE KINASE 763 U/L (55-170); CREATININE RESULT 1.19 mg/dL (0.52-1.25); GLUCOSE 85 mg/dL (75-110); LIPASE 340.1 U/L (23-300); TOTAL PROTEIN 5.7 g/dL (6.3-8.2)
[2017-03-01 04:20] LABS: HGB HCT DIFFERENCE -1.4; MEAN CORPUSCULAR HEMOGLOBIN 32.6 pg (27.0-33.4); MEAN CORPUSCULAR HGB CONC 30.3 g/dL (32.0-36.0); MEAN CORPUSCULAR VOLUME 108 fl (80-97); RED BLOOD COUNT 1.39 10^6/uL (4.35-5.55); RED CELL DISTRIBUTION WIDTH 20.5 % (11.5-14.0); WHITE BLOOD COUNT 18.9 10^3/uL (4.0-10.5)
--- NOTE | 2017-03-01 04:22 | RADIOLOGY REPORT (SQ) ---
EXAM DESCRIPTION: KUB/ABDOMEN (SINGLE VIEW) COMPLETED DATE/TIME: 03/01/2017 4:07 am REASON FOR STUDY: abdominal pain COMPARISON: Ultrasound, 12/20/2016. CT, 12/21/2016. NUMBER OF VIEWS: One view. TECHNIQUE: Supine radiographic image of the abdomen acquired. LIMITATIONS: None. FINDINGS: BOWEL GAS PATTERN: Normal bowel gas pattern. No dilated loops. CALCIFICATIONS: No suspicious calcifications. SOFT TISSUES: No gross mass or suggestion of organomegaly. HARDWARE: None in the abdomen. BONES: Chronic, moderate superior positioning of the acetabular component of a right total hip arthro plasty. OTHER: Moderate chronic hepatomegaly. Moderate bony demineralization. IMPRESSION: NO RADIOGRAPHIC EVIDENCE FOR ACUTE ABDOMINAL DISEASE. Moderate chronic hepatomegaly. TECHNICAL DOCUMENTATION: JOB ID: [id number] [employer]- All Rights Reserved
[2017-03-01 04:24] LABS: HEMATOCRIT 14.9 % (37.9-51.0)
[2017-03-01 04:28] LABS: CHLORIDE 105 mmol/L (98-107); SODIUM 135.2 mmol/L (137-145)
[2017-03-01 04:30] LABS: BASOPHILS % (MANUAL) 0 % (0-2); EOSINOPHILS % (MANUAL) 0 % (0-6); LYMPHOCYTES % (MANUAL) 1 % (13-45); TOTAL CELLS COUNTED 100
[2017-03-01 04:32] LABS: ANION GAP 20 (5-19)
[2017-03-01 04:33] LABS: ANISOCYTOSIS 2+
[2017-03-01 04:34] LABS: POLYCHROMASIA SLIGHT; TEAR DROP CELLS SLIGHT
[2017-03-01 04:35] LABS: CARBON DIOXIDE 10 mmol/L (22-30); POTASSIUM 7.3 mmol/L (3.6-5.0)
[2017-03-01] MEDS ORDERED: DEXTROSE 5%-WATER 1000 ML 1,000 ML with SODIUM BICARBONATE 150 MEQ IV PRN ×2 (04:38)
[2017-03-01] MEDS ORDERED: SODIUM BICARBONATE 8.4% INJ 50 MEQ/50 ML DISP.SYRIN IV ONE ×3 (04:38→18:30)
[2017-03-01] MEDS ORDERED: DEXTROSE 50%-WATER 25 GM/50 ML DISP.SYRIN IV ONE ×4 (04:39→18:30)
[2017-03-01] MEDS ORDERED: INSULIN REG, HUMAN 100 UNIT/ML 3 ML VIAL (PYX) IV ONE ×2 (04:39→16:30)
[2017-03-01] MEDS ORDERED: SODIUM BICARBONATE 8.4% INJ 50 MEQ/50 ML DISP.SYRIN ONE ×2 (04:50→05:14)
[2017-03-01] MEDS ORDERED: METRONIDAZOLE 500 MG/NS RTU 100 ML IV ONE ×2 (04:50→10:30)
--- NOTE | 2017-03-01 05:01 | RADIOLOGY REPORT (SQ) ---
EXAM DESCRIPTION: CHEST SINGLE VIEW COMPLETED DATE/TIME: 03/01/2017 4:47 am REASON FOR STUDY: abdominal pain COMPARISON: 01/05/2017. 12/29/2016. CT, 12/30/2016. EXAM PARAMETERS: NUMBER OF VIEWS: One view. TECHNIQUE: Single frontal radiographic view of the chest acquired. RADIATION DOSE: NA LIMITATIONS: None. FINDINGS: LUNGS AND PLEURA: Moderate right infrahilar mass opacity measures 6.9 cm without significa nt interval change. Moderate nonspecific hyperlucency. MEDIASTINUM AND HILAR STRUCTURES: No masses. Contour normal. HEART AND VASCULAR STRUCTURES: Heart normal in size. Moderate atherosclerosis. BONES: No acute findings. HARDWARE: None in the chest. OTHER: No other significant finding. IMPRESSION: No significant interval change. Right hilar mass opacity persists. TECHNICAL DOCUMENTATION: JOB ID: [id number]
[2017-03-01] MEDS ORDERED: RINGERS SOLUTION,LACTATED 1,000 ML IV ONE ×2 (05:35→06:46)
[2017-03-01 05:38] LABS: PROTHROMBIN TIME 16.2 SEC (11.4-15.4)
[2017-03-01 05:39] LABS: PARTIAL THROMBOPLASTIN TIME 35.4 SEC (23.5-35.8)
--- NOTE | 2017-03-01 06:27 | RADIOLOGY REPORT (SQ) ---
EXAM DESCRIPTION: CTA ABDOMEN/PELVIS W WO COMPLETED DATE/TIME: 03/01/2017 5:45 am REASON FOR STUDY: abdominal pain, elevated lactic acid COMPARISON: 12/21/2016. TECHNIQUE: CT scan of the abdominal aorta extending to the iliac bifurcation performed with and with out intravenous contrast using helical scanning technique with dynamic intravenous contrast injection . Images reviewed with lung, soft tissue, and bone windows. Reconstructed coronal and sagittal MPR im ages reviewed. All images stored on PACS. Advanced 3D imaging as volume rendering, MIPS, SSD performed? yes All CT scanners at this facility use dose modulation, iterative reconstruction, and/or weight based d osing when appropriate to reduce radiation dose to as low as reasonably achievable (ALARA). [facility]: Dose Right [facility]: CareDose [facility]: Dose Right [facility]: Teradose 4D [facility]: [place] [employer] CONTRAST TYPE AND DOSE: contrast/concentration: Isovue 370.00 mg/ml; Total Contrast Delivered: 100.0 ml; Total Saline Delivered: 40.0 ml RENAL FUNCTION: Creatinine 1.2 RADIATION DOSE: 2244 LIMITATIONS: None. FINDINGS: AORTA AND VESSELS: No aneurysm. No dissection. Renal arteries, SMA, celiac without stenosi s. Atherosclerosis. LUNG BASES: Moderate centrilobular emphysema of the lung bases. 0.5 cm pulmonary nodule of the right lower lobe lung, partially imaged. LIVER: Moderate hepatomegaly. Extensive diminished attenuation in heterogeneity. Abnormal enhanceme nt consistent with worsened likely metastatic disease. SPLEEN: Normal size. No focal lesions. PANCREAS: No masses. No significant calcifications. No adjacent inflammation or peripancreatic fluid collections. Pancreatic duct not dilated. GALLBLADDER: No identified stones by CT criteria. No inflammatory changes to suggest cholecystitis. ADRENAL GLANDS: No significant masses or asymmetry. RIGHT KIDNEY AND URETER: No mass, calculi or urinary tract obstruction. Mild perinephric fat strandi ng. LEFT KIDNEY AND URETER: Punctate nephrolithiasis. With mild perinephric fat stranding. RETROPERITONEUM: No retroperitoneal adenopathy, hemorrhage or masses. BOWEL AND PERITONEAL CAVITY: Small colonic diverticulosis. Diffuse decompressed colon with mild kae l wall thickening consistent with mild nonspecific colitis. APPENDIX: Normal. ABDOMINAL WALL: No masses. No hernias. BONY STRUCTURES: Severe 75% compression fracture discretely of the anterior 60% of the L3 vertebral b tonya new compared with prior CT from 12/21/2016. Subcentimeter mild focal low lytic lesions -osteopeni a at the L4, L1, T11, T10, T8, and T7 levels as well as the iliac ala, left more than right. Right t otal hip arthroplasty. 3-D IMAGING: Confirms the above findings. OTHER: 1.5 cm enlarged lymph node of the right cardiophrenic fat. Moderate enlarged lymph nodes and of the anterior presternal space. Moderate -severe mediastinal and bi hilar lymphadenopathy includes lymph nodes measuring up to 3.1 cm in a partially imaged right hilum and 3.5 cm, subcarinal. Modera te upper abdominal lymphadenopathy and moderate retroperitoneal lymphadenopathy includes a right para -aortic lymph node, 2.6 cm, image 88 of series 6. IMPRESSION: 1. Multiple small scattered lytic lesions throughout the skeleton, new/worsened compare d with prior exam, 12/21/2016. New severe L3 anterior compression deformity. Differential diagnosis includes multiple myeloma and metastatic disease. 2. Additional interval worsening includes hepatom egaly, abnormal liver enhancement, mediastinal, bi hilar, cardiophrenic, abdominal, and retroperitone al lymphadenopathy. 3. NO ABDOMINAL AORTIC ANEURYSM, DISSECTION OR SIGNIFICANT STENOSIS. TECHNICAL DOCUMENTATION: JOB ID: [id number] Quality ID # [id number]: Final reports with documentation of one or more dose reduction techniques (e.g., Au tomated exposure control, adjustment of the mA and/or kV according to patient size, use of iterative reconstruction technique) 2010 [employer]- All Rights Reserved
[2017-03-01] MEDS ORDERED: CALCIUM GLUCONATE 1000 MG/10 ML INJ IV ONE ×2 (07:38→15:00)
[2017-03-01] MEDS ORDERED: LIDOCAINE 1% INJ-PF (10 MG/ML) 30 ML SDV ONE (07:49)
[2017-03-01] MEDS ORDERED: ONDANSETRON HCL INJ/PF 4 MG/2 ML SDV IV PRN (08:14)
[2017-03-01] MEDS ORDERED: IPRATROPIUM/ALBUTEROL 0.5-2.5 MG/3 ML AMPUL NEB PRN (08:14)
[2017-03-01] MEDS ORDERED: FUROSEMIDE INJ/PF 20 MG/2 ML SDV IV PRN (08:20)
--- NOTE | 2017-03-01 08:29 | OPERATIVE REPORT E ---
Operative Report NAME: EDILIA PAN : 1965 AGE: 51Y DATE OF SURGERY: 03/01/2017 ROOM: PREOPERATIVE DIAGNOSIS: Clostridium difficile colitis with sepsis. POSTOPERATIVE DIAGNOSIS: Clostridium difficile colitis with sepsis. OPERATION: Placement of right subclavian vein triple-lumen catheter. SURGEON: IDRIS NUR M.D. ANESTHESIA: Local. INDICATION: This is a 51-year-old male with a history of lung cancer who underwent chemotherapy the day before yesterday and patient complaining of pain yesterday off and on and got worse this morning. He went to the emergency room where he was noted to be hypotensive and with a hemoglobin of 4.5. He needed more lines primarily for IV medications and monitoring. PROCEDURE: After adequate positioning of patient in slightly Trendelenburg position, the right neck and clavicular area was then prepped and draped in the usual sterile fashion. Local anesthesia infiltrated at the right infraclavicular area and the right subclavian vein punctured and guidewire inserted through the needle. There was a superior vena cava. The needle was removed and the puncture site enlarged with a dilator. Triple-lumen catheter passed through the guidewire into the area over the superior vena cava up to the length of about 16 cm. The catheter was then anchored to the skin with 3-0 silk and a Biopatch placed at the insertion site and a transparent dressing placed over the catheter. All the three ports were aspirated, bled easily, and infused saline easily. Patient tolerated the procedure well. A chest x-ray will be obtained for placement. DICTATING PHYSICIAN: IDRIS NUR M.D. [id number] Y#: [id number] ID: [id number] JOB#: [id number] ACCT: [id number] cc:IDRIS NUR M.D. >
--- NOTE | 2017-03-01 08:42 | EKG REPORT ---
SEVERITY:- BORDERLINE ECG - SINUS TACHYCARDIA LOW VOLTAGE THROUGHOUT BORDERLINE R WAVE PROGRESSION, ANTERIOR LEADS : Confirmed by: Leona Carney MD 01-Mar-2017 08:41:57
--- NOTE | 2017-03-01 09:03 | RADIOLOGY REPORT (SQ) ---
EXAM DESCRIPTION: CHEST SINGLE VIEW COMPLETED DATE/TIME: 03/01/2017 8:18 am REASON FOR STUDY: Central line placement COMPARISON: CT chest 12/30/2016 Chest film 01/05/2017, 03/01/2017 EXAM PARAMETERS: NUMBER OF VIEWS: One view. TECHNIQUE: Single frontal radiographic view of the chest acquired. RADIATION DOSE: NA LIMITATIONS: None. FINDINGS: LUNGS AND PLEURA: No opacities, masses or pneumothorax. No pleural effusion. MEDIASTINUM AND HILAR STRUCTURES: Stable right hilar enlargement as compared to CT chest 12/30/2016 HEART AND VASCULAR STRUCTURES: Stable mild cardiomegaly. Normal vasculature. BONES: No acute findings. HARDWARE: Right subclavian triple lumen catheter tip in the superior vena cava. No pneumothorax. OTHER: No other significant finding. IMPRESSION: No pneumothorax post right triple-lumen catheter placement with the tip in the superior vena cava. Stable right hilar enlargement TECHNICAL DOCUMENTATION: JOB ID: [id number]
--- NOTE | 2017-03-01 09:11 | PDOC H&P ---
History of Present Illness Admission Date/PCP: 03/01/17 Dr. 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 Patient reports that he also received radiation therapy yesterday. Yesterday after chemotherapy he began developing acute shortness of breath. And patient has been having diarrhea on and off for the last 2 days. Patient's diarrhea has been dark in color for the last several days. Patient also describes to fevers and chills however reports that this is been low-grade. Patient was prescribed an antibiotic several weeks ago of which they are not sure the name for a lump on his arm. In the emergency department, patient is found to be severely anemic with a hemoglobin of 4, a potassium of 7.4, elevated BUN, and C. difficile positive diarrhea. Patient is referred to the hospital service for evaluation and treatment. Patient's medications are currently undergoing reconciliation and are not available to us at this time. They report multiple medication changes over the past month. Past Medical History Cardiac Medical History: Reports: Congestive Heart Failure - Ejection fraction 20%, Hypertension Denies: DVT - Systolic, Myocardial Infarction, Hyperlipidema, Pulmonary Embolism Pulmonary Medical History: Denies: Asthma, Chronic Obstructive Pulmonary Disease (COPD) Neurological Medical History: Denies: Seizures Endocrine Medical History: Denies: Diabetes Mellitus Type 1, Diabetes Mellitus Type 2, Hyperthyroidism, Hypothyroidism Malignancy Medical History: Reports: Liver Cancer, Lung Cancer GI Medical History: Reports: Gastroesophageal Reflux Disease Denies: Cirrhosis, Hepatitis Musculoskeltal Medical History: Denies: Arthritis Psychiatric Medical History: Denies: Depression Past Surgical History Past Surgical History: Reports: Orthopedic Surgery - Right hip surgery, Other - Liver biopsy Social History Smoking Status: Current Every Day Smoker Cigarettes Packs Per Day: 0.5 Frequency of Alcohol Use: Heavy Amount of Alcoholic Beverages Per Day: Question history of alcoholism, none since discharge Hx Recreational Drug Use: No Drugs: None Hx Prescription Drug Abuse: No - Advance Directive Resuscitation Status: Do Not Resuscitate Surrogate healthcare decision maker:: Latanya [place] surrogate decision-maker Family History Family History: Malignancy Parental Family History Reviewed: Yes Children Family History Reviewed: Yes Sibling(s) Family History Reviewed.: Yes Medication/Allergy Home Medications: Dexamethasone [Decadron 4 mg Tablet] 4 mg PO Q8 #90 tablet 01/10/17 Folic Acid [Folvite 1 mg Tablet] 1 mg PO DAILY #90 tablet 01/10/17 Gabapentin [Neurontin 100 mg Capsule] 100 mg PO Q8 #90 capsule 01/10/17 Ranitidine HCl [Heartburn Relief 150] 150 mg PO DAILYP PRN #60 tablet 01/10/17 Thiamine HCl [Thiamine 100 mg Tablet] 100 mg PO DAILY #90 tablet 01/10/17 Oxycodone HCl [Oxy-Ir 5 mg Tablet] 5 mg PO 03/01/17 Oxycodone HCl [Oxycontin] 20 mg PO 03/01/17 Allergies/Adverse Reactions: No Known Allergies Allergy (Verified 12/29/16 16:59) Review of Systems Constitutional: PRESENT: chills, fatigue, fever(s), weakness, weight loss. ABSENT: headache(s), weight gain Eyes: ABSENT: visual disturbances Ears: ABSENT: hearing changes Cardiovascular: PRESENT: chest pain. ABSENT: dyspnea on exertion, edema, orthropnea, palpitations Respiratory: PRESENT: dyspnea. ABSENT: cough, hemoptysis, sputum Gastrointestinal: PRESENT: abdominal pain, bloating, constipation, diarrhea, heartburn, melena, nausea, vomiting. ABSENT: coffee ground emesis, hematemesis , hematochezia Genitourinary: ABSENT: dysuria, hematuria Musculoskeletal: ABSENT: joint swelling Integumentary: ABSENT: rash, wounds Neurological: ABSENT: abnormal gait, abnormal speech, confusion, dizziness, focal weakness, syncope Psychiatric: ABSENT: anxiety, depression, homidical ideation, suicidal ideation Endocrine: ABSENT: cold intolerance, heat intolerance, polydipsia, polyuria Hematologic/Lymphatic: ABSENT: easy bleeding, easy bruising Physical Exam Vital Signs: Temp Pulse Resp BP Pulse Ox 98.6 F 122 H 13 120/83 99 03/01/17 06:00 03/01/17 03:40 03/01/17 06:46 03/01/17 06:46 03/01/17 06:46 Intake & Output 02/28/17 03/01/17 03/02/17 06:59 06:59 06:59 Intake Total 0 Balance 0 Weight 70.76 kg General appearance: PRESENT: severe distress, well-developed, well-nourished, other - Pale, acutely ill-appearing Head exam: PRESENT: atraumatic, normocephalic Eye exam: PRESENT: conjunctiva pale, EOMI, PERRLA. ABSENT: conjunctival injection, scleral icterus Ear exam: PRESENT: normal external ear exam Mouth exam: PRESENT: dry mucosa, tongue midline Neck exam: ABSENT: JVD, lymphadenopathy, thyromegaly, tracheal deviation Respiratory exam: PRESENT: clear to auscultation jcarlos, prolonged expiratory phas , symmetrical, unlabored. ABSENT: crackles, rales, rhonchi, tachypnea, wheezes Cardiovascular exam: PRESENT: RRR, +S1, +S2. ABSENT: diastolic murmur, gallop, rubs, systolic murmur Pulses: PRESENT: +1 pedal pulses bilateral Vascular exam: PRESENT: pallor GI/Abdominal exam: PRESENT: distended, guarding - Voluntary, hyperactive bowel sounds, soft, tenderness - Diffusely tender to palpation. ABSENT: firm, mass, Andre's sign, organolmegaly, rebound Rectal exam: PRESENT: deferred, heme (+) stool Extremities exam: PRESENT: full ROM. ABSENT: calf tenderness, clubbing, pedal edema Neurological exam: PRESENT: alert, awake, oriented to person, oriented to place , oriented to time, oriented to situation, CN II-XII grossly intact. ABSENT: motor sensory deficit Psychiatric exam: PRESENT: appropriate affect, normal mood. ABSENT: homicidal ideation, suicidal ideation Skin exam: PRESENT: dry, intact, warm. ABSENT: cyanosis, rash Results Laboratory Results: 03/01/17 03:50 03/01/17 03:30 03/01/17 03/01/17 03/01/17 03:15 03:15 03:30 WBC Cancelled RBC Cancelled Hgb Cancelled Hct Cancelled MCV Cancelled MCH Cancelled MCHC Cancelled RDW Cancelled Plt Count Cancelled Seg Neutrophils % Cancelled Lymphocytes % Cancelled Monocytes % Cancelled Eosinophils % Cancelled Basophils % Cancelled Absolute Neutrophils Cancelled Absolute Lymphocytes Cancelled Absolute Monocytes Cancelled Absolute Eosinophils Cancelled Absolute Basophils Cancelled Sodium Cancelled 135.2 L Potassium Cancelled 7.3 H* Chloride Cancelled 105 Carbon Dioxide Cancelled 10 L* Anion Gap Cancelled 20 H BUN Cancelled 62 H Creatinine Cancelled 1.19 Est GFR ( Amer) Cancelled > 60 Est GFR (Non-Af Amer) Cancelled > 60 Glucose Cancelled 85 Lactic Acid Calcium Cancelled 8.0 L Total Bilirubin Cancelled 0.7 AST Cancelled 253 H ALT Cancelled 71 Alkaline Phosphatase Cancelled 353 H Total Protein Cancelled 5.7 L Albumin Cancelled 2.5 L Lipase Cancelled 340.1 H Blood Type Antibody Screen 03/01/17 03/01/17 03/01/17 03:50 03:50 03:50 WBC 18.9 H RBC 1.39 L Hgb 4.5 L* Hct 14.9 L* MCV 108 H MCH 32.6 MCHC 30.3 L RDW 20.5 H Plt Count 221 Seg Neutrophils % Not Reportable Lymphocytes % Not Reportable Monocytes % Not Reportable Eosinophils % Not Reportable Basophils % Not Reportable Absolute Neutrophils Not Reportable Absolute Lymphocytes Not Reportable Absolute Monocytes Not Reportable Absolute Eosinophils Not Reportable Absolute Basophils Not Reportable Sodium Potassium Chloride Carbon Dioxide Anion Gap BUN Creatinine Est GFR ( Amer) Est GFR (Non-Af Amer) Glucose Lactic Acid 12.9 H Calcium Total Bilirubin AST ALT Alkaline Phosphatase Total Protein Albumin Lipase Blood Type A POSITIVE Antibody Screen NEGATIVE 03/01/17 03/01/17 03/01/17 03:15 03:15 03:30 Creatine Kinase Cancelled 763 H CK-MB (CK-2) 4.10 Troponin I < 0.012 Impressions: KUB X-Ray 03/01/17 03:12 IMPRESSION: NO RADIOGRAPHIC EVIDENCE FOR ACUTE ABDOMINAL DISEASE. Moderate chronic hepatomegaly. Chest X-Ray 03/01/17 04:29 IMPRESSION: No significant interval change. Right hilar mass opacity persists. Abdomen/Pelvis CTA 03/01/17 04:37 IMPRESSION: 1. Multiple small scattered lytic lesions throughout the skeleton , new/worsened compared with prior exam, 12/21/2016. New severe L3 anterior compression deformity. Differential diagnosis includes multiple myeloma and metastatic disease. 2. Additional interval worsening includes hepatomegaly, abnormal liver enhancement, mediastinal, bi hilar, cardiophrenic, abdominal, and retroperitoneal lymphadenopathy. 3. NO ABDOMINAL AORTIC ANEURYSM, DISSECTION OR SIGNIFICANT STENOSIS. Assessment & Plan - Diagnosis (1) Severe sepsis Is this a current diagnosis for this admission?: YesPlan: Place patient on IV Flagyl and oral Vancocin. Check CVP every 4 hours. Maintain a map greater than 65. Patient has already received 2 L boluses in the emergency department and is on his second unit of packed red blood cells. Patient is currently not being bolused according to general standard due to his underlying history of heart failure. Monitor blood cultures and urine cultures for other sources of infection and will add antibiotics as needed. Patient overall has a significantly poor prognosis due to this and this has been discussed with him and his family. (2) Lactic acidosis Is this a current diagnosis for this admission?: Yes (3) Acute blood loss anemia Is this a current diagnosis for this admission?: Yes (4) C. difficile colitis Is this a current diagnosis for this admission?: Yes (5) Hyperkalemia Is this a current diagnosis for this admission?: Yes (6) Small cell lung cancer Qualifiers: Laterality: unspecified laterality Qualified Code(s): C34.90 - Malignant neoplasm of unspecified part of unspecified bronchus or lung Is this a current diagnosis for this admission?: Yes (7) ARF (acute renal failure) Qualifiers: Acute renal failure type: unspecified Qualified Code(s): N17.9 - Acute kidney failure, unspecified Is this a current diagnosis for this admission?: Yes (8) Combined systolic and diastolic congestive heart failure Qualifiers: Congestive heart failure chronicity: chronic Qualified Code(s): I50.42 - Chronic combined systolic (congestive) and diastolic (congestive) heart failure Is this a current diagnosis for this admission?: Yes (9) Tobacco abuse Is this a current diagnosis for this admission?: Yes
[2017-03-01] MEDS ORDERED: LIDOCAINE 5% (700 MG) TRANSDERMAL ADH..PATCH TP ONE (10:00)
[2017-03-01] MEDS ORDERED: SODIUM POLYSTYRENE SULFONATE 15 GM/60 ML PO ONE ×3 (10:00→18:45)
[2017-03-01 10:25] LABS: ARTERIAL BLOOD BASE EXCESS -10.3 mmol/L; ARTERIAL BLOOD O2 SATURATION 98.5 % (94-98)
[2017-03-01] MEDS: HYDROMORPHONE HCL INJ/PF 2 MG/ML AMPULE IV PRN ×4 (10:26→15:19)
[2017-03-01] MEDS: PANTOPRAZOLE SODIUM 40 MG VIAL IV SCH ×2 (10:27→21:07)
[2017-03-01 10:44] LABS: ANION GAP 11 (5-19); BLOOD UREA NITROGEN 59 mg/dL (7-20); CARBON DIOXIDE 15 mmol/L (22-30); CHLORIDE 109 mmol/L (98-107); CREATININE RESULT 0.95 mg/dL (0.52-1.25); GLUCOSE 90 mg/dL (75-110); MAGNESIUM 1.9 mg/dL (1.6-2.3); SODIUM 134.7 mmol/L (137-145)
[2017-03-01 10:56] LABS: POTASSIUM 6.4 mmol/L (3.6-5.0)
[2017-03-01 11:12] LABS: APPEARANCE,URINE SLIGHTLY-CLOUDY; BILIRUBIN,URINE NEGATIVE (NEGATIVE); GLUCOSE, URINE NEGATIVE (NEGATIVE); KETONES,URINE NEGATIVE (NEGATIVE); LEUKOCYTE ESTERASE,URINE NEGATIVE (NEGATIVE); NITRITE,URINE NEGATIVE (NEGATIVE); PROTEIN,URINE NEGATIVE (NEGATIVE); URINE SPECIFIC GRAVITY 1.025; UROBILINOGEN,URINE NEGATIVE mg/dL (<2.0)
[2017-03-01 11:42] LABS: CREATINE KINASE MB 4.18 ng/mL (<4.55); TROPONIN I 0.012 ng/mL
[2017-03-01] MEDS: NICOTINE 14 MG/24 HR PATCH.TD24 TD PRN (12:53)
--- NOTE | 2017-03-01 13:23 | CONSULTATION REPORT E ---
Consultation Report NAME: EDILIA PAN : 1965 AGE: 51Y DATE: 03/01/2017 611 A TO: IDRIS NUR M.D. FROM: MAICOL CHIU M.D. Requesting Physician REASON FOR CONSULTATION: I saw the patient at around 7:00 a.m. in the emergency room. He was referred for severe abdominal pains and hypotension, and hemoglobin of 4.5. A stool for Hemoccult was obtained and positive for C. diff. and also positive for blood. PAST MEDICAL HISTORY: Patient with history of lung cancer with metastases to the liver and to the bones, with chemotherapy. He had chemo yesterday and the day before yesterday. REVIEW OF SYSTEMS: Abdominal pains started yesterday after chemotherapy and just had a large bowel movement in the ER that is bloody. A central line to the right subclavian vein was placed by me under local anesthesia. He can have more fluids and blood transfusion through this site. He was then managed by Dr. Chiu. I again saw him in the ICU and he still looks very pale and tachycardic. Still with severe abdominal pains. PHYSICAL EXAMINATION: HEENT: Looks pale. NECK: No thyromegaly. LUNGS: Scattered rhonchi. HEART: Tachycardic. ABDOMEN: Soft, but diffuse tenderness. EXTREMITIES: No edema. DIAGNOSTIC STUDIES: He had abdominal x-rays which showed some thickened colon, but otherwise unremarkable. He also had a CT scan which was quite unremarkable. CONCLUSION: I had a long talk with the earlier as far as DNR status and said they will cross that road when patient is further resuscitated and may need surgery. When I saw him back in the ICU he was now made a DNR. The told me that his life span according to the oncologist is about 8 months to 12 months. I told the that he might need surgery and this may not be a good thing for him because may need to be dealing with ischemia or ischemic bowel. His white count is up to 18.9. He is also getting blood transfusions. I discussed also the patient's case with Dr. Chiu and will try to be as conservative as possible and I think surgery will be out of the question. DICTATING PHYSICIAN: IDRIS NUR M.D. [id number] PHY#: [id number] ID: [id number] JOB#: [id number] ACCT: [id number] cc:IDRIS NUR M.D. >
[2017-03-01] MEDS: VANCOMYCIN HCL INJ 500 MG VIAL PO SCH ×3 (15:09→23:02)
[2017-03-01] MEDS: METRONIDAZOLE 500 MG/NS RTU 100 ML IV SCH ×2 (15:18→21:06)
[2017-03-01] MEDS ORDERED: PHENYLEPHRINE HCL INJ/PF 10 MG/1 ML SDV ONE (15:47)
[2017-03-01] MEDS ORDERED: HYDROCORTISONE SOD SUCCINATE INJ/PF 100 MG/2 ML SDV ONE (15:49)
[2017-03-01] MEDS ORDERED: DEXTROSE 5%-WATER 250 ML with PHENYLEPHRINE HCL 40 MG IV PRN ×2 (15:49)
[2017-03-01] MEDS ORDERED: NORMAL SALINE 1000 ML 1,000 ML IV PRN (15:49)
[2017-03-01] MEDS ORDERED: NORMAL SALINE 1000 ML 1,000 ML IV ONE (16:00)
[2017-03-01] MEDS ORDERED: INSULIN REG, HUMAN 100 UNIT/ML 3 ML VIAL (PYX) ONE (16:01)
[2017-03-01] MEDS: ALBUMIN HUMAN 50 ML IV SCH ×4 (16:08→19:41)
[2017-03-01] MEDS ORDERED: HYDROCORTISONE SOD SUCCINATE INJ/PF 100 MG/2 ML SDV IV ONE (16:15)
[2017-03-01 16:31] LABS: BLOOD UREA NITROGEN 59 mg/dL (7-20); CALCIUM 7.3 mg/dL (8.4-10.2); CHLORIDE 109 mmol/L (98-107); CREATINE KINASE 828 U/L (55-170); CREATININE RESULT 1.16 mg/dL (0.52-1.25); GLUCOSE 63 mg/dL (75-110); SODIUM 136.4 mmol/L (137-145)
[2017-03-01 16:40] LABS: CREATINE KINASE MB 6.27 ng/mL (<4.55); TROPONIN I 0.017 ng/mL
[2017-03-01 16:53] LABS: POTASSIUM 8.1 mmol/L (3.6-5.0)
[2017-03-01 16:56] LABS: ANION GAP 19 (5-19); CARBON DIOXIDE 7 mmol/L (22-30)
--- NOTE | 2017-03-01 17:04 | EKG REPORT ---
SEVERITY:- BORDERLINE ECG - SINUS TACHYCARDIA LOW VOLTAGE THROUGHOUT BORDERLINE R WAVE PROGRESSION, ANTERIOR LEADS : Confirmed by: Leona Carney MD 01-Mar-2017 17:03:21
[2017-03-01] MEDS: DEXTROSE 5%-WATER 1000 ML 1,000 ML with SODIUM BICARBONATE 150 MEQ IV PRN ×2 (18:16)
[2017-03-01] MEDS ORDERED: DIPHENHYDRAMINE HCL 50 MG/ML VIAL IV ONE (18:30)
[2017-03-01] MEDS ORDERED: METOCLOPRAMIDE HCL INJ/PF 10 MG/2 ML SDV IV ONE (18:30)
[2017-03-01] MEDS ORDERED: KETOROLAC TROMETHAMINE INJ/PF 30 MG/1 ML SDV IV ONE (18:30)
[2017-03-01 20:41] LABS: BLOOD UREA NITROGEN 64 mg/dL (7-20); CHLORIDE 107 mmol/L (98-107); CREATININE RESULT 1.01 mg/dL (0.52-1.25); GLUCOSE 290 mg/dL (75-110); MAGNESIUM 1.7 mg/dL (1.6-2.3); SODIUM 136.4 mmol/L (137-145)
[2017-03-01 20:56] LABS: ANION GAP 12 (5-19)
[2017-03-01 21:00] LABS: CARBON DIOXIDE 17 mmol/L (22-30)
[2017-03-01 21:02] LABS: CALCIUM 6.2 mg/dL (8.4-10.2); POTASSIUM 6.1 mmol/L (3.6-5.0)
[2017-03-01] MEDS: HYDROCORTISONE SOD SUCCINATE INJ/PF 100 MG/2 ML SDV IV SCH (21:07)
[2017-03-01 21:48] LABS: HEMATOCRIT 18.8 % (37.9-51.0); HGB HCT DIFFERENCE -0.2; MEAN CORPUSCULAR HGB CONC 33.2 g/dL (32.0-36.0); RED BLOOD COUNT 2.07 10^6/uL (4.35-5.55); RED CELL DISTRIBUTION WIDTH 16.1 % (11.5-14.0); WHITE BLOOD COUNT 12.3 10^3/uL (4.0-10.5)
[2017-03-01 21:56] LABS: CREATINE KINASE MB 4.45 ng/mL (<4.55); TROPONIN I 0.012 ng/mL
[2017-03-01 22:14] LABS: HEMOGLOBIN 6.2 g/dL (13.5-17.0)
[2017-03-01 22:15] LABS: MEAN CORPUSCULAR VOLUME 91 fl (80-97)
[2017-03-01 22:20] LABS: BAND NEUTROPHILS % (MANUAL) 2 % (3-5); BASOPHILS % (MANUAL) 0 % (0-2); EOSINOPHILS % (MANUAL) 0 % (0-6); LYMPHOCYTES % (MANUAL) 5 % (13-45); NUCLEATED RED BLOOD CELLS 1 /100 WBC (0); TOTAL CELLS COUNTED 100; TOXIC GRANULATION 1+
[2017-03-01 22:21] LABS: ANISOCYTOSIS 1+
[2017-03-01 22:23] LABS: BURR CELLS SLIGHT; TARGET CELLS 1+; TEAR DROP CELLS SLIGHT
[2017-03-01] MEDS ORDERED: CALCIUM GLUCONATE 1000 MG/10 ML INJ IV PRN (22:47)
[2017-03-01] MEDS ORDERED: CALCIUM GLUCONATE 1,000 MG in DEXTROSE 5%-WATER 50 ML IV ONE (23:00)
[2017-03-02 00:21] LABS: HEMATOCRIT 18.2 % (37.9-51.0); HGB HCT DIFFERENCE 0.1; MEAN CORPUSCULAR HGB CONC 33.6 g/dL (32.0-36.0); MEAN CORPUSCULAR VOLUME 89 fl (80-97); RED BLOOD COUNT 2.04 10^6/uL (4.35-5.55); RED CELL DISTRIBUTION WIDTH 16.7 % (11.5-14.0); WHITE BLOOD COUNT 11.1 10^3/uL (4.0-10.5)
[2017-03-02 00:27] LABS: ANION GAP 13 (5-19); BLOOD UREA NITROGEN 63 mg/dL (7-20); CARBON DIOXIDE 21 mmol/L (22-30); CHLORIDE 104 mmol/L (98-107); CREATININE RESULT 0.97 mg/dL (0.52-1.25); GLUCOSE 228 mg/dL (75-110); MAGNESIUM 1.7 mg/dL (1.6-2.3); SODIUM 138.3 mmol/L (137-145)
[2017-03-02 00:40] LABS: BASOPHILS % (MANUAL) 0 % (0-2); EOSINOPHILS % (MANUAL) 0 % (0-6); LYMPHOCYTES % (MANUAL) 2 % (13-45); TOTAL CELLS COUNTED 100
[2017-03-02 00:41] LABS: POTASSIUM 4.7 mmol/L (3.6-5.0)
[2017-03-02 00:46] LABS: TOXIC GRANULATION 1+
[2017-03-02 00:47] LABS: ANISOCYTOSIS 1+; BURR CELLS SLIGHT; TEAR DROP CELLS SLIGHT
[2017-03-02 00:48] LABS: HEMOGLOBIN 6.1 g/dL (13.5-17.0); ROULEAUX SLIGHT
[2017-03-02 00:51] LABS: CALCIUM 6.6 mg/dL (8.4-10.2)
[2017-03-02] MEDS: DEXTROSE 5%-WATER 1000 ML 1,000 ML with SODIUM BICARBONATE 150 MEQ IV PRN ×2 (02:47)
[2017-03-02] MEDS: METRONIDAZOLE 500 MG/NS RTU 100 ML IV SCH ×4 (02:47→20:30)
[2017-03-02 04:16] LABS: PROTHROMBIN TIME 21.4 SEC (11.4-15.4)
[2017-03-02 04:17] LABS: PARTIAL THROMBOPLASTIN TIME 36.3 SEC (23.5-35.8)
[2017-03-02 04:25] LABS: ALANINE AMINOTRANSFERASE 954 U/L (21-72); ALBUMIN 2.2 g/dL (3.5-5.0); ALKALINE PHOSPHATASE 220 U/L (38-126); ANION GAP 11 (5-19); BILIRUBIN,DIRECT 0.6 mg/dL (0.0-0.4); BILIRUBIN,TOTAL 0.8 mg/dL (0.2-1.3); BLOOD UREA NITROGEN 61 mg/dL (7-20); CARBON DIOXIDE 24 mmol/L (22-30); CHLORIDE 105 mmol/L (98-107); CREATININE RESULT 0.92 mg/dL (0.52-1.25); GLUCOSE 146 mg/dL (75-110); MAGNESIUM 1.7 mg/dL (1.6-2.3); SODIUM 139.7 mmol/L (137-145); TOTAL PROTEIN 4.5 g/dL (6.3-8.2)
[2017-03-02 04:30] LABS: HEMATOCRIT 18.3 % (37.9-51.0); HGB HCT DIFFERENCE 0.3; MEAN CORPUSCULAR HEMOGLOBIN 30.2 pg (27.0-33.4); MEAN CORPUSCULAR HGB CONC 33.7 g/dL (32.0-36.0); MEAN CORPUSCULAR VOLUME 90 fl (80-97); RED BLOOD COUNT 2.04 10^6/uL (4.35-5.55); RED CELL DISTRIBUTION WIDTH 16.4 % (11.5-14.0); WHITE BLOOD COUNT 11.9 10^3/uL (4.0-10.5)
[2017-03-02 04:31] LABS: HEMOGLOBIN 6.2 g/dL (13.5-17.0)
[2017-03-02 04:43] LABS: ASPARTATE AMINO TRANSFERASE 4358 U/L (17-59)
[2017-03-02 04:51] LABS: POTASSIUM 3.7 mmol/L (3.6-5.0)
[2017-03-02 04:52] LABS: CALCIUM 6.3 mg/dL (8.4-10.2)
[2017-03-02 04:56] LABS: BASOPHILS % (MANUAL) 0 % (0-2); EOSINOPHILS % (MANUAL) 0 % (0-6); LYMPHOCYTES % (MANUAL) 4 % (13-45); TOTAL CELLS COUNTED 100
[2017-03-02 04:58] LABS: POLYCHROMASIA SLIGHT; TOXIC GRANULATION SLIGHT
[2017-03-02 04:59] LABS: ANISOCYTOSIS 1+; BURR CELLS SLIGHT; ROULEAUX SLIGHT; TEAR DROP CELLS SLIGHT
[2017-03-02] MEDS: VANCOMYCIN HCL INJ 500 MG VIAL PO SCH ×4 (05:16→23:20)
[2017-03-02] MEDS: HYDROCORTISONE SOD SUCCINATE INJ/PF 100 MG/2 ML SDV IV SCH ×3 (05:16→22:11)
[2017-03-02] MEDS ORDERED: CALCIUM GLUCONATE 1000 MG/10 ML INJ IV PRN (05:28)
[2017-03-02] MEDS: HYDROMORPHONE HCL INJ/PF 2 MG/ML AMPULE IV PRN ×6 (06:03→22:11)
[2017-03-02] MEDS ORDERED: CALCIUM GLUCONATE 1,000 MG in DEXTROSE 5%-WATER 50 ML IV ONE (06:15)
[2017-03-02] MEDS ORDERED: CALCIUM GLUCONATE 2,000 MG in DEXTROSE 5%-WATER 100 ML IV ONE ×2 (06:15→20:00)
[2017-03-02] MEDS ORDERED: NICOTINE 14 MG/24 HR PATCH.TD24 TD PRN (08:00)
--- NOTE | 2017-03-02 08:27 | PDOC CONSULTATION ---
Consultation Consult Date: 03/02/17 Attending physician:: MAICOL BELLO Consult reason:: Extensive stage SCLC, sepsis, hypotension, GI bleed History of Present Illness Admission Date/PCP: 03/01/17 08:14 Patient complains of: Extensive stage SCLC, sepsis, hypotension, GI bleed History of Present Illness: 51-year-old male with known history of extensive stage small cell lung cancer. He has extensive bone and liver metastasis. He is well-known to our oncology clinic, recently he received cycle #3 of carboplatin and etoposide dose reduced by 50%. Soon after he began having melanotic stool, became weak, and ultimately was brought to [facility]. He was given 4 units of packed red blood cells, yesterday he was through the day on pressors, but now is off that, he seems better this morning. His hemoglobin is improved from before range to 6.2. The melanotic stool seems to have slowed down. He is being given IV fluids and is being monitored closely. He is a DNR. Past Medical History Cardiac Medical History: Reports: Congestive Heart Failure - Ejection fraction 20%, Hypertension Denies: DVT - Systolic, Myocardial Infarction, Hyperlipidema, Pulmonary Embolism Pulmonary Medical History: Denies: Asthma, Chronic Obstructive Pulmonary Disease (COPD) Neurological Medical History: Denies: Seizures Endocrine Medical History: Denies: Diabetes Mellitus Type 1, Diabetes Mellitus Type 2, Hyperthyroidism, Hypothyroidism Malignancy Medical History: Reports: Liver Cancer, Lung Cancer GI Medical History: Denies: Cirrhosis, Gastroesophageal Reflux Disease, Hepatitis Musculoskeltal Medical History: Denies: Arthritis Psychiatric Medical History: Denies: Depression Past Surgical History Past Surgical History: Reports: Orthopedic Surgery - Right hip surgery, Other - Liver biopsy Social History Smoking Status: Never Smoker Cigarettes Packs Per Day: 1 Frequency of Alcohol Use: None Hx Recreational Drug Use: No Drugs: None Hx Prescription Drug Abuse: No - Advance Directive Resuscitation Status: Do Not Resuscitate Family History Family History: Reviewed & Not Pertinent, Malignancy Parental Family History Reviewed: Yes Children Family History Reviewed: Yes Sibling(s) Family History Reviewed.: Yes Medication/Allergy Home Medications: Dexamethasone [Decadron 4 mg Tablet] 4 mg PO Q8 #90 tablet 01/10/17 Folic Acid [Folvite 1 mg Tablet] 1 mg PO DAILY #90 tablet 01/10/17 Gabapentin [Neurontin 100 mg Capsule] 100 mg PO Q8 #90 capsule 01/10/17 Ranitidine HCl [Heartburn Relief 150] 150 mg PO DAILYP PRN #60 tablet 01/10/17 Thiamine HCl [Thiamine 100 mg Tablet] 100 mg PO DAILY #90 tablet 01/10/17 Oxycodone HCl [Oxy-Ir 5 mg Tablet] 5 mg PO 03/01/17 Oxycodone HCl [Oxycontin] 20 mg PO 03/01/17 Allergies/Adverse Reactions: No Known Allergies Allergy (Verified 12/29/16 16:59) Review of Systems ROS unobtainable: Due to mental status Physical Exam Vital Signs: Temp Pulse Resp BP Pulse Ox 98.2 F 101 H 20 119/79 93 03/02/17 05:59 03/01/17 20:00 03/02/17 06:26 03/02/17 06:26 03/02/17 06:26 Intake & Output 03/01/17 03/02/17 03/03/17 06:59 06:59 06:59 Intake Total 5538 Output Total 3840 Balance 1698 Weight 77.1 kg General appearance: PRESENT: no acute distress Mouth exam: PRESENT: dry mucosa Respiratory exam: PRESENT: clear to auscultation jcarlos. ABSENT: rales, rhonchi, wheezes Cardiovascular exam: PRESENT: RRR. ABSENT: diastolic murmur, rubs, systolic murmur Rectal exam: PRESENT: deferred Neurological exam: PRESENT: alert, awake, oriented to person, oriented to place , oriented to time, oriented to situation, CN II-XII grossly intact. ABSENT: motor sensory deficit Results Laboratory Results: 03/02/17 04:00 03/02/17 04:00 03/01/17 03/01/17 03/01/17 10:05 10:05 10:05 WBC RBC Hgb Hct MCV MCH MCHC RDW Plt Count Seg Neutrophils % Lymphocytes % Monocytes % Eosinophils % Basophils % Absolute Neutrophils Absolute Lymphocytes Absolute Monocytes Absolute Eosinophils Absolute Basophils Carbonic Acid 0.70 L HCO3/H2CO3 Ratio 19:1 ABG pH 7.40 ABG pCO2 23.2 L ABG pO2 122.0 H ABG HCO3 13.9 L ABG O2 Saturation 98.5 H ABG Base Excess -10.3 FiO2 2L Sodium 134.7 L Potassium 6.4 H* Chloride 109 H Carbon Dioxide 15 L Anion Gap 11 BUN 59 H Creatinine 0.95 Est GFR ( Amer) > 60 Est GFR (Non-Af Amer) > 60 Glucose 90 Calcium 7.0 L* Magnesium 1.9 Total Bilirubin AST ALT Alkaline Phosphatase Total Protein Albumin 1.7 L Urine Color Urine Appearance Urine pH Ur Specific [place] Urine Protein Urine Glucose (UA) Urine Ketones Urine Blood Urine Nitrite Ur Leukocyte Esterase Urine WBC (Auto) Urine RBC (Auto) 03/01/17 03/01/17 03/01/17 10:44 15:57 20:07 WBC Cancelled RBC Cancelled Hgb Cancelled Hct Cancelled MCV Cancelled MCH Cancelled MCHC Cancelled RDW Cancelled Plt Count Cancelled Seg Neutrophils % Cancelled Lymphocytes % Cancelled Monocytes % Cancelled Eosinophils % Cancelled Basophils % Cancelled Absolute Neutrophils Cancelled Absolute Lymphocytes Cancelled Absolute Monocytes Cancelled Absolute Eosinophils Cancelled Absolute Basophils Cancelled Carbonic Acid HCO3/H2CO3 Ratio ABG pH ABG pCO2 ABG pO2 ABG HCO3 ABG O2 Saturation ABG Base Excess FiO2 Sodium 136.4 L Potassium 8.1 H* D Chloride 109 H Carbon Dioxide 7 L* Anion Gap 19 BUN 59 H Creatinine 1.16 Est GFR ( Amer) > 60 Est GFR (Non-Af Amer) > 60 Glucose 63 L Calcium 7.3 L Magnesium Total Bilirubin AST ALT Alkaline Phosphatase Total Protein Albumin Urine Color YELLOW Urine Appearance SLIGHTLY-CLOUDY Urine pH 5.0 Ur Specific [place] 1.025 Urine Protein NEGATIVE Urine Glucose (UA) NEGATIVE Urine Ketones NEGATIVE Urine Blood LARGE H Urine Nitrite NEGATIVE Ur Leukocyte Esterase NEGATIVE Urine WBC (Auto) 20 Urine RBC (Auto) >182 03/01/17 03/01/17 03/01/17 20:07 21:15 21:15 WBC 12.3 H RBC 2.07 L Hgb 6.2 L Hct 18.8 L MCV 91 D MCH 30.0 MCHC 33.2 RDW 16.1 H Plt Count 90 L Seg Neutrophils % Not Reportable Lymphocytes % Not Reportable Monocytes % Not Reportable Eosinophils % Not Reportable Basophils % Not Reportable Absolute Neutrophils Not Reportable Absolute Lymphocytes Not Reportable Absolute Monocytes Not Reportable Absolute Eosinophils Not Reportable Absolute Basophils Not Reportable Carbonic Acid HCO3/H2CO3 Ratio ABG pH ABG pCO2 ABG pO2 ABG HCO3 ABG O2 Saturation ABG Base Excess FiO2 Sodium 136.4 L Potassium 6.1 H* D Chloride 107 Carbon Dioxide 17 L D Anion Gap 12 BUN 64 H Creatinine 1.01 Est GFR ( Amer) > 60 Est GFR (Non-Af Amer) > 60 Glucose 290 H Calcium 6.2 L* Magnesium 1.7 Total Bilirubin AST ALT Alkaline Phosphatase Total Protein Albumin 2.0 L Urine Color Urine Appearance Urine pH Ur Specific [place] Urine Protein Urine Glucose (UA) Urine Ketones Urine Blood Urine Nitrite Ur Leukocyte Esterase Urine WBC (Auto) Urine RBC (Auto) 03/02/17 03/02/17 03/02/17 00:05 00:05 00:05 WBC 11.1 H RBC 2.04 L Hgb 6.1 L Hct 18.2 L MCV 89 MCH 30.0 MCHC 33.6 RDW 16.7 H Plt Count 85 L Seg Neutrophils % Not Reportable Lymphocytes % Not Reportable Monocytes % Not Reportable Eosinophils % Not Reportable Basophils % Not Reportable Absolute Neutrophils Not Reportable Absolute Lymphocytes Not Reportable Absolute Monocytes Not Reportable Absolute Eosinophils Not Reportable Absolute Basophils Not Reportable Carbonic Acid HCO3/H2CO3 Ratio ABG pH ABG pCO2 ABG pO2 ABG HCO3 ABG O2 Saturation ABG Base Excess FiO2 Sodium 138.3 Potassium 4.7 D Chloride 104 Carbon Dioxide 21 L Anion Gap 13 BUN 63 H Creatinine 0.97 Est GFR ( Amer) > 60 Est GFR (Non-Af Amer) > 60 Glucose 228 H Calcium 6.6 L* Magnesium 1.7 Total Bilirubin AST ALT Alkaline Phosphatase Total Protein Albumin 2.1 L Urine Color Urine Appearance Urine pH Ur Specific [place] Urine Protein Urine Glucose (UA) Urine Ketones Urine Blood Urine Nitrite Ur Leukocyte Esterase Urine WBC (Auto) Urine RBC (Auto) 03/02/17 03/02/17 04:00 04:00 WBC 11.9 H RBC 2.04 L Hgb 6.2 L Hct 18.3 L MCV 90 MCH 30.2 MCHC 33.7 RDW 16.4 H Plt Count 88 L Seg Neutrophils % Not Reportable Lymphocytes % Not Reportable Monocytes % Not Reportable Eosinophils % Not Reportable Basophils % Not Reportable Absolute Neutrophils Not Reportable Absolute Lymphocytes Not Reportable Absolute Monocytes Not Reportable Absolute Eosinophils Not Reportable Absolute Basophils Not Reportable Carbonic Acid HCO3/H2CO3 Ratio ABG pH ABG pCO2 ABG pO2 ABG HCO3 ABG O2 Saturation ABG Base Excess FiO2 Sodium 139.7 Potassium 3.7 D Chloride 105 Carbon Dioxide 24 Anion Gap 11 BUN 61 H Creatinine 0.92 Est GFR ( Amer) > 60 Est GFR (Non-Af Amer) > 60 Glucose 146 H Calcium 6.3 L* Magnesium 1.7 Total Bilirubin 0.8 AST 4358 H ALT 954 H Alkaline Phosphatase 220 H Total Protein 4.5 L Albumin 2.2 L Urine Color Urine Appearance Urine pH Ur Specific [place] Urine Protein Urine Glucose (UA) Urine Ketones Urine Blood Urine Nitrite Ur Leukocyte Esterase Urine WBC (Auto) Urine RBC (Auto) 03/01/17 03/01/17 03/01/17 10:05 10:49 15:57 Creatine Kinase 686 H 828 H CK-MB (CK-2) 4.18 Troponin I 0.012 03/01/17 03/01/17 03/01/17 15:57 21:15 21:15 Creatine Kinase 994 H CK-MB (CK-2) 6.27 H 4.45 Troponin I 0.017 0.012 Impressions: KUB X-Ray 03/01/17 03:12 IMPRESSION: NO RADIOGRAPHIC EVIDENCE FOR ACUTE ABDOMINAL DISEASE. Moderate chronic hepatomegaly. Chest X-Ray 03/01/17 04:29 IMPRESSION: No significant interval change. Right hilar mass opacity persists. Abdomen/Pelvis CTA 03/01/17 04:37 IMPRESSION: 1. Multiple small scattered lytic lesions throughout the skeleton , new/worsened compared with prior exam, 12/21/2016. New severe L3 anterior compression deformity. Differential diagnosis includes multiple myeloma and metastatic disease. 2. Additional interval worsening includes hepatomegaly, abnormal liver enhancement, mediastinal, bi hilar, cardiophrenic, abdominal, and retroperitoneal lymphadenopathy. 3. NO ABDOMINAL AORTIC ANEURYSM, DISSECTION OR SIGNIFICANT STENOSIS. Assessment & Plan - Diagnosis (1) Small cell lung cancer Qualifiers: Laterality: left Qualified Code(s): C34.92 - Malignant neoplasm of unspecified part of left bronchus or lung Is this a current diagnosis for this admission?: YesPlan: Today had a long discussion with patient, we discussed that he is no longer a candidate for chemotherapy. We just reduced considerably and he still ended up having a lot of issues, a lot of complications, to that extent he would be hospice appropriate. For today we discussed the utility of comfort care measures. At this point he would still like current medical measures being done. But he is considering full comfort care measures. I am concerned that he does not really have a lot of help at home, he does have a friend that would stay with him through the night but he does not really have family members that would take care of him during the day. We will investigate this further. He may need inpatient hospice ultimately. Regardless we will continue with medical management for now. Today spent greater than 70 minutes in discussion with patient and coordination of care. - Time Time Spent: Greater than 70 Minutes Critical Time spent with patient: 35 or more minutes - Inpatient Certification Based on my medical assessment, after consideration of the patient's comorbidities, presenting symptoms, or acuity I expect that the services needed warrant INPATIENT care.: Yes I certify that my determination is in accordance with my understanding of Medicare's requirements for reasonable and necessary INPATIENT services [42 CFR 412.3e].: Yes Medical Necessity: Need For IV Fluids, Need For Continuous Telemetry Monitoring , Need for IV Antibiotics
[2017-03-02 08:59] LABS: HEMOGLOBIN 4.5 g/dL (13.5-17.0)
[2017-03-02] MEDS ORDERED: FUROSEMIDE INJ/PF 20 MG/2 ML SDV IV PRN (09:06)
[2017-03-02] MEDS ORDERED: NORMAL SALINE 250 ML IV PRN ×4 (09:06→12:27)
[2017-03-02] MEDS ORDERED: NORMAL SALINE 1000 ML 1,000 ML IV PRN (09:07)
[2017-03-02] MEDS ORDERED: PHYTONADIONE INJ 10 MG/1 ML AMPULE SUBCUT ONE (09:45)
[2017-03-02] MEDS ORDERED: FUROSEMIDE INJ/PF 20 MG/2 ML SDV IV ONE (09:45)
[2017-03-02 10:09] LABS: ANION GAP 13 (5-19); BLOOD UREA NITROGEN 56 mg/dL (7-20); CARBON DIOXIDE 24 mmol/L (22-30); CHLORIDE 102 mmol/L (98-107); CREATININE RESULT 0.83 mg/dL (0.52-1.25); GLUCOSE 193 mg/dL (75-110); MAGNESIUM 1.7 mg/dL (1.6-2.3); SODIUM 138.6 mmol/L (137-145)
[2017-03-02 10:19] LABS: CALCIUM 6.7 mg/dL (8.4-10.2)
[2017-03-02] MEDS: MAGNESIUM SULFATE/D5W 100 ML IV SCH ×4 (10:20→15:17)
[2017-03-02] MEDS: SUCRALFATE SUSP 1 GM/10 ML UDCUP PO SCH ×3 (12:23→23:20)
[2017-03-02] MEDS: NICOTINE 14 MG/24 HR PATCH.TD24 TD PRN (12:24)
[2017-03-02] MEDS ORDERED: ONDANSETRON HCL INJ/PF 4 MG/2 ML SDV IV PRN (12:56)
[2017-03-02] MEDS ORDERED: POTASSIUM CHLORIDE 10 MEQ TABLET.SA PO ONE ×2 (14:00→19:00)
[2017-03-02] MEDS ORDERED: CALCIUM GLUCONATE 1000 MG/10 ML INJ IV ONE ×4 (14:00→20:04)
[2017-03-02 17:18] LABS: ANION GAP 10 (5-19); BLOOD UREA NITROGEN 53 mg/dL (7-20); CARBON DIOXIDE 26 mmol/L (22-30); CHLORIDE 99 mmol/L (98-107); CREATININE RESULT 0.85 mg/dL (0.52-1.25); GLUCOSE 207 mg/dL (75-110); SODIUM 135.4 mmol/L (137-145)
[2017-03-02 17:43] LABS: CALCIUM 6.1 mg/dL (8.4-10.2)
[2017-03-02] MEDS: LANSOPRAZOLE 30 MG TAB.RAP.DR PO SCH (17:48)
--- NOTE | 2017-03-02 18:20 | PDOC PROGRESS REPORT ---
Subjective Progress Note for:: 03/02/17 Subjective:: Reports he is feeling significantly better. Patient admits to nausea and back pain. Denies chest pain, shortness of breath, fever, chills. Amenable to the idea of hospice but would like to do this at home. Physical Exam Vital Signs: Temp Pulse Resp BP Pulse Ox 98.2 F 105 H 20 127/80 H 95 03/02/17 05:59 03/02/17 08:00 03/02/17 06:26 03/02/17 08:00 03/02/17 08:00 Intake & Output 03/01/17 03/02/17 03/03/17 06:59 06:59 06:59 Intake Total 5538 Output Total 3840 Balance 1698 Weight 77.1 kg Exam: GENERAL: No acute distress,chronically ill-appearing HEENT: Conjunctiva clear, conjunctival edema bilaterally, nonicteric, moist mucous membranes, no JVD, midline trachea RESPIRATORY: Bilateral bibasilar Rales CARDIAC: RRR, +SM, no rub or gallop ABDOMEN: Soft, distended, nontender, hyperactive bowel sounds, no rebound, no guarding EXTREMETIES: No cyanosis, clubbing; +1 edema NEUROLOGIC: Alert, oriented to person, place, time; CN's grossly intact SKIN: No rash, wounds PSYCH: Normal mood, normal affect Results Laboratory Results: 03/02/17 04:00 03/01/17 03/01/17 03/01/17 10:05 10:05 10:05 WBC RBC Hgb Hct MCV MCH MCHC RDW Plt Count Seg Neutrophils % Lymphocytes % Monocytes % Eosinophils % Basophils % Absolute Neutrophils Absolute Lymphocytes Absolute Monocytes Absolute Eosinophils Absolute Basophils Carbonic Acid 0.70 L HCO3/H2CO3 Ratio 19:1 ABG pH 7.40 ABG pCO2 23.2 L ABG pO2 122.0 H ABG HCO3 13.9 L ABG O2 Saturation 98.5 H ABG Base Excess -10.3 FiO2 2L Sodium 134.7 L Potassium 6.4 H* Chloride 109 H Carbon Dioxide 15 L Anion Gap 11 BUN 59 H Creatinine 0.95 Est GFR ( Amer) > 60 Est GFR (Non-Af Amer) > 60 Glucose 90 Calcium 7.0 L* Magnesium 1.9 Total Bilirubin AST ALT Alkaline Phosphatase Total Protein Albumin 1.7 L Urine Color Urine Appearance Urine pH Ur Specific [place] Urine Protein Urine Glucose (UA) Urine Ketones Urine Blood Urine Nitrite Ur Leukocyte Esterase Urine WBC (Auto) Urine RBC (Auto) 03/01/17 03/01/17 03/01/17 10:44 15:57 20:07 WBC Cancelled RBC Cancelled Hgb Cancelled Hct Cancelled MCV Cancelled MCH Cancelled MCHC Cancelled RDW Cancelled Plt Count Cancelled Seg Neutrophils % Cancelled Lymphocytes % Cancelled Monocytes % Cancelled Eosinophils % Cancelled Basophils % Cancelled Absolute Neutrophils Cancelled Absolute Lymphocytes Cancelled Absolute Monocytes Cancelled Absolute Eosinophils Cancelled Absolute Basophils Cancelled Carbonic Acid HCO3/H2CO3 Ratio ABG pH ABG pCO2 ABG pO2 ABG HCO3 ABG O2 Saturation ABG Base Excess FiO2 Sodium 136.4 L Potassium 8.1 H* D Chloride 109 H Carbon Dioxide 7 L* Anion Gap 19 BUN 59 H Creatinine 1.16 Est GFR ( Amer) > 60 Est GFR (Non-Af Amer) > 60 Glucose 63 L Calcium 7.3 L Magnesium Total Bilirubin AST ALT Alkaline Phosphatase Total Protein Albumin Urine Color YELLOW Urine Appearance SLIGHTLY-CLOUDY Urine pH 5.0 Ur Specific [place] 1.025 Urine Protein NEGATIVE Urine Glucose (UA) NEGATIVE Urine Ketones NEGATIVE Urine Blood LARGE H Urine Nitrite NEGATIVE Ur Leukocyte Esterase NEGATIVE Urine WBC (Auto) 20 Urine RBC (Auto) >182 03/01/17 03/01/17 03/01/17 20:07 21:15 21:15 WBC 12.3 H RBC 2.07 L Hgb 6.2 L Hct 18.8 L MCV 91 D MCH 30.0 MCHC 33.2 RDW 16.1 H Plt Count 90 L Seg Neutrophils % Not Reportable Lymphocytes % Not Reportable Monocytes % Not Reportable Eosinophils % Not Reportable Basophils % Not Reportable Absolute Neutrophils Not Reportable Absolute Lymphocytes Not Reportable Absolute Monocytes Not Reportable Absolute Eosinophils Not Reportable Absolute Basophils Not Reportable Carbonic Acid HCO3/H2CO3 Ratio ABG pH ABG pCO2 ABG pO2 ABG HCO3 ABG O2 Saturation ABG Base Excess FiO2 Sodium 136.4 L Potassium 6.1 H* D Chloride 107 Carbon Dioxide 17 L D Anion Gap 12 BUN 64 H Creatinine 1.01 Est GFR ( Amer) > 60 Est GFR (Non-Af Amer) > 60 Glucose 290 H Calcium 6.2 L* Magnesium 1.7 Total Bilirubin AST ALT Alkaline Phosphatase Total Protein Albumin 2.0 L Urine Color Urine Appearance Urine pH Ur Specific [place] Urine Protein Urine Glucose (UA) Urine Ketones Urine Blood Urine Nitrite Ur Leukocyte Esterase Urine WBC (Auto) Urine RBC (Auto) 03/02/17 03/02/17 03/02/17 00:05 00:05 00:05 WBC 11.1 H RBC 2.04 L Hgb 6.1 L Hct 18.2 L MCV 89 MCH 30.0 MCHC 33.6 RDW 16.7 H Plt Count 85 L Seg Neutrophils % Not Reportable Lymphocytes % Not Reportable Monocytes % Not Reportable Eosinophils % Not Reportable Basophils % Not Reportable Absolute Neutrophils Not Reportable Absolute Lymphocytes Not Reportable Absolute Monocytes Not Reportable Absolute Eosinophils Not Reportable Absolute Basophils Not Reportable Carbonic Acid HCO3/H2CO3 Ratio ABG pH ABG pCO2 ABG pO2 ABG HCO3 ABG O2 Saturation ABG Base Excess FiO2 Sodium 138.3 Potassium 4.7 D Chloride 104 Carbon Dioxide 21 L Anion Gap 13 BUN 63 H Creatinine 0.97 Est GFR ( Amer) > 60 Est GFR (Non-Af Amer) > 60 Glucose 228 H Calcium 6.6 L* Magnesium 1.7 Total Bilirubin AST ALT Alkaline Phosphatase Total Protein Albumin 2.1 L Urine Color Urine Appearance Urine pH Ur Specific [place] Urine Protein Urine Glucose (UA) Urine Ketones Urine Blood Urine Nitrite Ur Leukocyte Esterase Urine WBC (Auto) Urine RBC (Auto) 03/02/17 03/02/17 04:00 04:00 WBC 11.9 H RBC 2.04 L Hgb 6.2 L Hct 18.3 L MCV 90 MCH 30.2 MCHC 33.7 RDW 16.4 H Plt Count 88 L Seg Neutrophils % Not Reportable Lymphocytes % Not Reportable Monocytes % Not Reportable Eosinophils % Not Reportable Basophils % Not Reportable Absolute Neutrophils Not Reportable Absolute Lymphocytes Not Reportable Absolute Monocytes Not Reportable Absolute Eosinophils Not Reportable Absolute Basophils Not Reportable Carbonic Acid HCO3/H2CO3 Ratio ABG pH ABG pCO2 ABG pO2 ABG HCO3 ABG O2 Saturation ABG Base Excess FiO2 Sodium 139.7 Potassium 3.7 D Chloride 105 Carbon Dioxide 24 Anion Gap 11 BUN 61 H Creatinine 0.92 Est GFR ( Amer) > 60 Est GFR (Non-Af Amer) > 60 Glucose 146 H Calcium 6.3 L* Magnesium 1.7 Total Bilirubin 0.8 AST 4358 H ALT 954 H Alkaline Phosphatase 220 H Total Protein 4.5 L Albumin 2.2 L Urine Color Urine Appearance Urine pH Ur Specific [place] Urine Protein Urine Glucose (UA) Urine Ketones Urine Blood Urine Nitrite Ur Leukocyte Esterase Urine WBC (Auto) Urine RBC (Auto) 03/01/17 03/01/17 03/01/17 10:05 10:49 15:57 Creatine Kinase 686 H 828 H CK-MB (CK-2) 4.18 Troponin I 0.012 03/01/17 03/01/17 03/01/17 15:57 21:15 21:15 Creatine Kinase 994 H CK-MB (CK-2) 6.27 H 4.45 Troponin I 0.017 0.012 Impressions: KUB X-Ray 03/01/17 03:12 IMPRESSION: NO RADIOGRAPHIC EVIDENCE FOR ACUTE ABDOMINAL DISEASE. Moderate chronic hepatomegaly. Chest X-Ray 03/01/17 04:29 IMPRESSION: No significant interval change. Right hilar mass opacity persists. Abdomen/Pelvis CTA 03/01/17 04:37 IMPRESSION: 1. Multiple small scattered lytic lesions throughout the skeleton , new/worsened compared with prior exam, 12/21/2016. New severe L3 anterior compression deformity. Differential diagnosis includes multiple myeloma and metastatic disease. 2. Additional interval worsening includes hepatomegaly, abnormal liver enhancement, mediastinal, bi hilar, cardiophrenic, abdominal, and retroperitoneal lymphadenopathy. 3. NO ABDOMINAL AORTIC ANEURYSM, DISSECTION OR SIGNIFICANT STENOSIS. Assessment & Plan - Diagnosis (1) Severe sepsis Is this a current diagnosis for this admission?: YesPlan: Place patient on IV Flagyl and oral Vancocin. Check CVP every 4 hours. Maintain a map greater than 65. Patient is currently not being bolused according to general standard due to his underlying history of heart failure. Monitor blood cultures and urine cultures for other sources of infection and will add antibiotics as needed. Patient overall has a significantly poor prognosis due to this and this has been discussed with him and his family and patient is amenable to the idea of hospice at home. (2) Lactic acidosis Is this a current diagnosis for this admission?: YesPlan: Improved (3) Acute blood loss anemia Is this a current diagnosis for this admission?: YesPlan: We will give patient an additional 2 units of packed red blood cells. After this I have discussed with patient that further transfusions will likely not be given due to the terminal nature of his condition. He is in agreement with this plan. (4) C. difficile colitis Is this a current diagnosis for this admission?: YesPlan: Vancomycin and Flagyl (5) Hyperkalemia Is this a current diagnosis for this admission?: YesPlan: Resolved. Patient now has hypokalemia. 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 Qualifiers: Congestive heart failure chronicity: chronic Qualified Code(s): I50.42 - Chronic combined systolic (congestive) and diastolic (congestive) heart failure Is this a current diagnosis for this admission?: Yes (9) Tobacco abuse Is this a current diagnosis for this admission?: Yes (10) Hypokalemia Is this a current diagnosis for this admission?: Yes (11) Do not resuscitate Is this a current diagnosis for this admission?: Yes (12) Hypomagnesemia Is this a current diagnosis for this admission?: Yes - Time Critical Time spent with patient: 35 or more minutes Medications reviewed and adjusted accordingly: Yes Anticipated discharge: Hospice Within: within 48 hours
[2017-03-02] MEDS: POTASSI CL 20 MEQ/50 ML RIDER 20 MEQ/50 ML RTUPB IV SCH ×3 (19:01→22:10)
[2017-03-02] MEDS ORDERED: NORMAL SALINE 1000 ML 1,000 ML IV ONE (20:04)
[2017-03-02 22:40] LABS: HEMATOCRIT 18.5 % (37.9-51.0); HGB HCT DIFFERENCE 0.4; WHITE BLOOD COUNT 11.3 10^3/uL (4.0-10.5)
[2017-03-02 22:44] LABS: MEAN CORPUSCULAR HEMOGLOBIN 30.2 pg (27.0-33.4); MEAN CORPUSCULAR HGB CONC 34.1 g/dL (32.0-36.0); MEAN CORPUSCULAR VOLUME 89 fl (80-97); RED BLOOD COUNT 2.08 10^6/uL (4.35-5.55); RED CELL DISTRIBUTION WIDTH 15.5 % (11.5-14.0)
[2017-03-02 22:54] LABS: HEMOGLOBIN 6.3 g/dL (13.5-17.0)
[2017-03-02 22:57] LABS: ANION GAP 8 (5-19); BLOOD UREA NITROGEN 56 mg/dL (7-20); CARBON DIOXIDE 26 mmol/L (22-30); CHLORIDE 104 mmol/L (98-107); CREATININE RESULT 0.87 mg/dL (0.52-1.25); GLUCOSE 117 mg/dL (75-110); POTASSIUM 3.9 mmol/L (3.6-5.0); SODIUM 137.7 mmol/L (137-145)
[2017-03-02 22:59] LABS: BAND NEUTROPHILS % (MANUAL) 4 % (3-5); BASOPHILS % (MANUAL) 0 % (0-2); EOSINOPHILS % (MANUAL) 0 % (0-6); LYMPHOCYTES % (MANUAL) 1 % (13-45); TOTAL CELLS COUNTED 100
[2017-03-02 23:02] LABS: ANISOCYTOSIS SLIGHT; POIKILOCYTOSIS SLIGHT; TARGET CELLS SLIGHT; TOXIC GRANULATION SLIGHT
[2017-03-02 23:03] LABS: TEAR DROP CELLS SLIGHT
[2017-03-02 23:07] LABS: CALCIUM 6.4 mg/dL (8.4-10.2)
[2017-03-03] MEDS: HYDROMORPHONE HCL INJ/PF 2 MG/ML AMPULE IV PRN ×6 (01:07→16:05)
[2017-03-03] MEDS: METRONIDAZOLE 500 MG/NS RTU 100 ML IV SCH ×3 (04:30→16:06)
[2017-03-03 04:50] LABS: HEMATOCRIT 18.1 % (37.9-51.0); HGB HCT DIFFERENCE 0.2; MEAN CORPUSCULAR HEMOGLOBIN 29.9 pg (27.0-33.4); MEAN CORPUSCULAR HGB CONC 33.6 g/dL (32.0-36.0); MEAN CORPUSCULAR VOLUME 89 fl (80-97); RED BLOOD COUNT 2.03 10^6/uL (4.35-5.55); RED CELL DISTRIBUTION WIDTH 15.9 % (11.5-14.0); WHITE BLOOD COUNT 12.4 10^3/uL (4.0-10.5)
[2017-03-03 05:01] LABS: ALANINE AMINOTRANSFERASE 769 U/L (21-72); ALBUMIN 1.8 g/dL (3.5-5.0); ALKALINE PHOSPHATASE 188 U/L (38-126); ANION GAP 11 (5-19); BILIRUBIN,DIRECT 0.7 mg/dL (0.0-0.4); BILIRUBIN,TOTAL 0.9 mg/dL (0.2-1.3); BLOOD UREA NITROGEN 61 mg/dL (7-20); CARBON DIOXIDE 20 mmol/L (22-30); CHLORIDE 106 mmol/L (98-107); CREATININE RESULT 1.11 mg/dL (0.52-1.25); GLUCOSE 119 mg/dL (75-110); POTASSIUM 4.8 mmol/L (3.6-5.0); SODIUM 136.5 mmol/L (137-145); TOTAL PROTEIN 3.9 g/dL (6.3-8.2)
[2017-03-03 05:02] LABS: BAND NEUTROPHILS % (MANUAL) 5 % (3-5); BASOPHILS % (MANUAL) 0 % (0-2); EOSINOPHILS % (MANUAL) 0 % (0-6); LYMPHOCYTES % (MANUAL) 4 % (13-45); TOTAL CELLS COUNTED 100
[2017-03-03 05:05] LABS: ROULEAUX SLIGHT; TOXIC GRANULATION 1+
[2017-03-03 05:06] LABS: ANISOCYTOSIS SLIGHT; HEMOGLOBIN 6.1 g/dL (13.5-17.0); POIKILOCYTOSIS SLIGHT
[2017-03-03 05:24] LABS: ASPARTATE AMINO TRANSFERASE 2281 U/L (17-59)
[2017-03-03 05:26] LABS: CALCIUM 6.2 mg/dL (8.4-10.2)
[2017-03-03] MEDS: HYDROCORTISONE SOD SUCCINATE INJ/PF 100 MG/2 ML SDV IV SCH ×2 (06:05→16:06)
[2017-03-03] MEDS: VANCOMYCIN HCL INJ 500 MG VIAL PO SCH ×2 (06:05→14:54)
[2017-03-03] MEDS: SUCRALFATE SUSP 1 GM/10 ML UDCUP PO SCH ×2 (06:05→14:54)
[2017-03-03] MEDS: LANSOPRAZOLE 30 MG TAB.RAP.DR PO SCH ×2 (06:07→16:06)
--- NOTE | 2017-03-03 08:11 | PDOC PROGRESS REPORT ---
Subjective Progress Note for:: 03/03/17 Subjective:: Had long discussion on status today, spent >40min in discussion, discussed going to full comfort care measures, pt has more family members possibly coming from [place], cousin coming in to discuss matters further, hospitalist team will discuss w/ family when they get here Physical Exam Vital Signs: Temp Pulse Resp BP Pulse Ox 98.2 F 127 H 9 L 112/67 98 03/03/17 06:00 03/02/17 20:13 03/03/17 06:27 03/03/17 06:27 03/03/17 06:27 Intake & Output 03/02/17 03/03/17 03/04/17 06:59 06:59 06:59 Intake Total 5538 4818 Output Total 3840 5465 Balance 1698 1493 Weight 77.1 kg 80.5 kg General appearance: PRESENT: no acute distress, well-developed, well-nourished Head exam: PRESENT: atraumatic, normocephalic Eye exam: PRESENT: conjunctiva pink, EOMI, PERRLA. ABSENT: scleral icterus Ear exam: PRESENT: normal external ear exam Mouth exam: PRESENT: moist, tongue midline Neck exam: ABSENT: carotid bruit, JVD, lymphadenopathy, thyromegaly Respiratory exam: PRESENT: clear to auscultation jcarlos. ABSENT: rales, rhonchi, wheezes Cardiovascular exam: PRESENT: RRR. ABSENT: diastolic murmur, rubs, systolic murmur Pulses: PRESENT: normal dorsalis pedis pul Vascular exam: PRESENT: normal capillary refill GI/Abdominal exam: PRESENT: normal bowel sounds, soft. ABSENT: distended, guarding, mass, organolmegaly, rebound, tenderness Rectal exam: PRESENT: deferred Extremities exam: PRESENT: full ROM. ABSENT: calf tenderness, clubbing, pedal edema Neurological exam: PRESENT: alert, awake, oriented to person, oriented to place , oriented to time, oriented to situation, CN II-XII grossly intact. ABSENT: motor sensory deficit Psychiatric exam: PRESENT: appropriate affect, normal mood. ABSENT: homicidal ideation, suicidal ideation Skin exam: PRESENT: dry, intact, warm. ABSENT: cyanosis, rash Results Laboratory Results: 03/03/17 04:40 03/03/17 04:40 03/02/17 03/02/17 03/02/17 08:45 16:55 16:55 WBC RBC Hgb Hct MCV MCH MCHC RDW Plt Count Seg Neutrophils % Lymphocytes % Monocytes % Eosinophils % Basophils % Absolute Neutrophils Absolute Lymphocytes Absolute Monocytes Absolute Eosinophils Absolute Basophils Sodium 138.6 135.4 L Potassium 3.0 L* 3.0 L* Chloride 102 99 Carbon Dioxide 24 26 Anion Gap 13 10 BUN 56 H 53 H Creatinine 0.83 0.85 Est GFR ( Amer) > 60 > 60 Est GFR (Non-Af Amer) > 60 > 60 Glucose 193 H 207 H Calcium 6.7 L* 6.1 L* Magnesium 1.7 2.7 H D Total Bilirubin AST ALT Alkaline Phosphatase Total Protein Albumin 03/02/17 03/02/17 03/03/17 22:21 22:21 04:40 WBC 11.3 H RBC 2.08 L Hgb 6.3 L Hct 18.5 L MCV 89 MCH 30.2 MCHC 34.1 RDW 15.5 H Plt Count 73 L Seg Neutrophils % Not Reportable Lymphocytes % Not Reportable Monocytes % Not Reportable Eosinophils % Not Reportable Basophils % Not Reportable Absolute Neutrophils Not Reportable Absolute Lymphocytes Not Reportable Absolute Monocytes Not Reportable Absolute Eosinophils Not Reportable Absolute Basophils Not Reportable Sodium 137.7 136.5 L Potassium 3.9 4.8 Chloride 104 106 Carbon Dioxide 26 20 L Anion Gap 8 11 BUN 56 H 61 H Creatinine 0.87 1.11 Est GFR ( Amer) > 60 > 60 Est GFR (Non-Af Amer) > 60 > 60 Glucose 117 H 119 H Calcium 6.4 L* 6.2 L* Magnesium Total Bilirubin 0.9 AST 2281 H ALT 769 H Alkaline Phosphatase 188 H Total Protein 3.9 L Albumin 1.8 L 03/03/17 04:40 WBC 12.4 H RBC 2.03 L Hgb 6.1 L Hct 18.1 L MCV 89 MCH 29.9 MCHC 33.6 RDW 15.9 H Plt Count 68 L Seg Neutrophils % Not Reportable Lymphocytes % Not Reportable Monocytes % Not Reportable Eosinophils % Not Reportable Basophils % Not Reportable Absolute Neutrophils Not Reportable Absolute Lymphocytes Not Reportable Absolute Monocytes Not Reportable Absolute Eosinophils Not Reportable Absolute Basophils Not Reportable Sodium Potassium Chloride Carbon Dioxide Anion Gap BUN Creatinine Est GFR ( Amer) Est GFR (Non-Af Amer) Glucose Calcium Magnesium Total Bilirubin AST ALT Alkaline Phosphatase Total Protein Albumin 03/01/17 03/01/17 03/01/17 10:05 10:49 15:57 Creatine Kinase 686 H 828 H CK-MB (CK-2) 4.18 Troponin I 0.012 03/01/17 03/01/17 03/01/17 15:57 21:15 21:15 Creatine Kinase 994 H CK-MB (CK-2) 6.27 H 4.45 Troponin I 0.017 0.012 Impressions: KUB X-Ray 03/01/17 03:12 IMPRESSION: NO RADIOGRAPHIC EVIDENCE FOR ACUTE ABDOMINAL DISEASE. Moderate chronic hepatomegaly. Chest X-Ray 03/01/17 04:29 IMPRESSION: No significant interval change. Right hilar mass opacity persists. Abdomen/Pelvis CTA 03/01/17 04:37 IMPRESSION: 1. Multiple small scattered lytic lesions throughout the skeleton , new/worsened compared with prior exam, 12/21/2016. New severe L3 anterior compression deformity. Differential diagnosis includes multiple myeloma and metastatic disease. 2. Additional interval worsening includes hepatomegaly, abnormal liver enhancement, mediastinal, bi hilar, cardiophrenic, abdominal, and retroperitoneal lymphadenopathy. 3. NO ABDOMINAL AORTIC ANEURYSM, DISSECTION OR SIGNIFICANT STENOSIS. Assessment & Plan - Diagnosis (1) Small cell lung cancer Qualifiers: Laterality: left Qualified Code(s): C34.92 - Malignant neoplasm of unspecified part of left bronchus or lung Is this a current diagnosis for this admission?: YesPlan: Plan comfort care measures, don't feel pt appropriate for outpt hospice, so will con't current measures, possible transition to inpt hospice if pt stable enough for transfer
--- NOTE | 2017-03-03 12:03 | PDOC TRANSFER SUMMARY ---
General - Admit/Disc Date/PCP Admission Date/Primary Care Provider: 03/01/17 08:14 Discharge Date: 03/03/17 - Discharge Diagnosis (1) Severe sepsis Is this a current diagnosis for this admission?: Yes (2) DIC (disseminated intravascular coagulation) Is this a current diagnosis for this admission?: Yes (3) Septic shock due to Clostridium difficile Is this a current diagnosis for this admission?: Yes (4) Lactic acidosis Is this a current diagnosis for this admission?: Yes (5) Acute blood loss anemia Is this a current diagnosis for this admission?: Yes (6) C. difficile colitis Is this a current diagnosis for this admission?: Yes (7) Hyperkalemia Is this a current diagnosis for this admission?: Yes (8) Small cell lung cancer Is this a current diagnosis for this admission?: Yes (9) ARF (acute renal failure) Is this a current diagnosis for this admission?: Yes (10) Combined systolic and diastolic congestive heart failure Is this a current diagnosis for this admission?: Yes (11) Tobacco abuse Is this a current diagnosis for this admission?: Yes (12) Hypokalemia Is this a current diagnosis for this admission?: Yes (13) Do not resuscitate Is this a current diagnosis for this admission?: Yes (14) Hypomagnesemia Is this a current diagnosis for this admission?: Yes - Additional Information Resuscitation Status: Do Not Resuscitate Discharge Diet: As Tolerated Discharge Activity: Bedrest Home Medications: Oxycodone HCl [Oxy-Ir 5 mg Tablet] 5 mg PO 03/01/17 Oxycodone HCl [Oxycontin] 20 mg PO 03/01/17 Dexamethasone [Decadron 4 mg Tablet] 4 mg PO Q6 #30 tablet 03/03/17 Lansoprazole [Prevacid 30 mg Odt Tablet] 30 mg PO BID@0600,1700 #60 tab.rap. 03/03/17 Metronidazole [Flagyl 500 mg Tablet] 500 mg PO Q6H #56 tablet 03/03/17 Pantoprazole Sodium [Protonix] 40 mg PO BID #60 tablet. 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 Patient reports that he also received radiation therapy yesterday. Yesterday after chemotherapy he began developing acute shortness of breath. And patient has been having diarrhea on and off for the last 2 days. Patient's diarrhea has been dark in color for the last several days. Patient also describes to fevers and chills however reports that this is been low-grade. Patient was prescribed an antibiotic several weeks ago of which they are not sure the name for a lump on his arm. In the emergency department, patient is found to be severely anemic with a hemoglobin of 4, a potassium of 7.4, elevated BUN, and C. difficile positive diarrhea. Patient is referred to the hospital service for evaluation and treatment. Patient's medications are currently undergoing reconciliation and are not available to us at this time. They report multiple medication changes over the past month. Hospital Course Hospital Course: Patient intially treated with Neosynepherine, Solucortef, volume and blood resusitation for shock. Bicarbonate ggt and kayexalate for hyperkalemia. Oral vancocin and iv flagyl for C.Diff colitis. Despite aggressive measures, patient continues to decline and agrees to comfort measures. Patient has been accepted to in hospice for continued pain relief from graciela metastasis. Physical Exam Vital Signs: Temp Pulse Resp BP Pulse Ox 98.1 F 122 H 25 H 113/75 97 03/03/17 08:00 03/03/17 10:00 03/03/17 10:00 03/03/17 10:00 03/03/17 10:00 Intake & Output 03/02/17 03/03/17 03/04/17 06:59 06:59 06:59 Intake Total 3871 5788 355 Output Total 9154 2302 Balance 1698 1493 355 Weight 77.1 kg 80.5 kg Exam: GENERAL: acutely ill appearing,pale HEENT: Conjunctiva clear, nonicteric, moist mucous membranes, no JVD, midline trachea RESPIRATORY: CTAB CARDIAC: RRR, +SM, no rub or gallop ABDOMEN: Soft, distended, diffusely tender, hyperactive bowel sounds, no rebound , no guarding EXTREMETIES: No cyanosis, clubbing; +1 edema NEUROLOGIC: Alert, oriented to person, place, time; CN's grossly intact SKIN: No rash, wounds PSYCH: Normal mood, normal affect Results Laboratory Results: 03/03/17 04:40 03/03/17 04:40 03/02/17 03/02/17 03/02/17 16:55 16:55 22:21 WBC RBC Hgb Hct MCV MCH MCHC RDW Plt Count Seg Neutrophils % Lymphocytes % Monocytes % Eosinophils % Basophils % Absolute Neutrophils Absolute Lymphocytes Absolute Monocytes Absolute Eosinophils Absolute Basophils Sodium 135.4 L 137.7 Potassium 3.0 L* 3.9 Chloride 99 104 Carbon Dioxide 26 26 Anion Gap 10 8 BUN 53 H 56 H Creatinine 0.85 0.87 Est GFR ( Amer) > 60 > 60 Est GFR (Non-Af Amer) > 60 > 60 Glucose 207 H 117 H Calcium 6.1 L* 6.4 L* Magnesium 2.7 H D Total Bilirubin AST ALT Alkaline Phosphatase Total Protein Albumin 03/02/17 03/03/17 03/03/17 22:21 04:40 04:40 WBC 11.3 H 12.4 H RBC 2.08 L 2.03 L Hgb 6.3 L 6.1 L Hct 18.5 L 18.1 L MCV 89 89 MCH 30.2 29.9 MCHC 34.1 33.6 RDW 15.5 H 15.9 H Plt Count 73 L 68 L Seg Neutrophils % Not Reportable Not Reportable Lymphocytes % Not Reportable Not Reportable Monocytes % Not Reportable Not Reportable Eosinophils % Not Reportable Not Reportable Basophils % Not Reportable Not Reportable Absolute Neutrophils Not Reportable Not Reportable Absolute Lymphocytes Not Reportable Not Reportable Absolute Monocytes Not Reportable Not Reportable Absolute Eosinophils Not Reportable Not Reportable Absolute Basophils Not Reportable Not Reportable Sodium 136.5 L Potassium 4.8 Chloride 106 Carbon Dioxide 20 L Anion Gap 11 BUN 61 H Creatinine 1.11 Est GFR ( Amer) > 60 Est GFR (Non-Af Amer) > 60 Glucose 119 H Calcium 6.2 L* Magnesium Total Bilirubin 0.9 AST 2281 H ALT 769 H Alkaline Phosphatase 188 H Total Protein 3.9 L Albumin 1.8 L 03/01/17 10:44 Catheterized Urine Urine Culture - Final NO GROWTH 2 DAYS 03/01/17 03/01/17 03/01/17 10:05 10:49 15:57 Creatine Kinase 686 H 828 H CK-MB (CK-2) 4.18 Troponin I 0.012 03/01/17 03/01/17 03/01/17 15:57 21:15 21:15 Creatine Kinase 994 H CK-MB (CK-2) 6.27 H 4.45 Troponin I 0.017 0.012 Impressions: KUB X-Ray 03/01/17 03:12 IMPRESSION: NO RADIOGRAPHIC EVIDENCE FOR ACUTE ABDOMINAL DISEASE. Moderate chronic hepatomegaly. Chest X-Ray 03/01/17 04:29 IMPRESSION: No significant interval change. Right hilar mass opacity persists. Abdomen/Pelvis CTA 03/01/17 04:37 IMPRESSION: 1. Multiple small scattered lytic lesions throughout the skeleton , new/worsened compared with prior exam, 12/21/2016. New severe L3 anterior compression deformity. Differential diagnosis includes multiple myeloma and metastatic disease. 2. Additional interval worsening includes hepatomegaly, abnormal liver enhancement, mediastinal, bi hilar, cardiophrenic, abdominal, and retroperitoneal lymphadenopathy. 3. NO ABDOMINAL AORTIC ANEURYSM, DISSECTION OR SIGNIFICANT STENOSIS. Transfer Plan - Time Spent with Patient Time spent with patient: Greater than 30 Minutes Qualifiers PATEINT BEING DISCHARGED WITH ANY OF THE FOLLOWING DIAGNOSIS?: No Plan Time Spent: Greater than 30 Minutes
[2017-03-03 15:30] LABS: PATH REVIEW PATHOLOGIST REVIEWED
[2017-03-03 16:58] VITALS: BP 97/52
== END 2017-03-03 16:55 | disposition hospice, inpatient (51) | DRG 871 ==
LOC: ER 03:03 → EH 08:14 → UNDOADMIN 08:32 → ICU 09:43
PROVIDERS: ADMIT Family Medicine; ATTEND Family Medicine
PROC: 02HV33Z Insertion of Infusion Device into Superior Vena Cava, Percutaneous Approach (ICD-10-PCS; principal; 2017-03-01)
PROC: 30233N1 Transfusion of Nonautologous Red Blood Cells into Peripheral Vein, Percutaneous Approach (ICD-10-PCS; 2017-03-01)
PROC: 30233N1 Transfusion of Nonautologous Red Blood Cells into Peripheral Vein, Percutaneous Approach (ICD-10-PCS; 2017-03-02)
DX: A41.9 Sepsis, unspecified organism (principal); R65.21 Severe sepsis with septic shock; D65 Disseminated intravascular coagulation [defibrination syndrome]; N17.9 Acute kidney failure, unspecified; D62 Acute posthemorrhagic anemia; A04.7 Enterocolitis due to Clostridium difficile; C34.92 Malignant neoplasm of unspecified part of left bronchus or lung; C78.7 Secondary malignant neoplasm of liver and intrahepatic bile duct; C79.51 Secondary malignant neoplasm of bone; I50.42 Chronic combined systolic (congestive) and diastolic (congestive) heart failure; E87.5 Hyperkalemia; E87.6 Hypokalemia; Z66 Do not resuscitate; E83.42 Hypomagnesemia; Z79.899 Other long term (current) drug therapy; F17.210 Nicotine dependence, cigarettes, uncomplicated
CPT/HCPCS: 36415; 36430; 71010; 74000; 74174; 80048; 80053; 81001; 82040; 82550; 82553; 82803; 82962; 83605; 83690; 83735; 84484; 85025; 85362; 85384; 85610; 85730; 86850; 86900; 86901; 86920; 87040; 87045; 87077; 87086; 87205; 87493; 93005; 93010; 96374; 96375; 96376; 99291; 99292; C1751; J0610; J1170; J1200; J1720; J1815; J1885; J1940; J2405; J2765; J3370; J3430; J3475; J3480; J3490; J7030; J7060; P9016; S0164